=== PATIENT | female | born 1940 | race Caucasian/White ===

== ENCOUNTER 2023-07-03 13:19 | Inpatient (IN) | payer OTHER, SELFPAY ==
[2023-07-03] VITALS (15 sets, daily range): BP systolic 102–156; BP diastolic 61–86; BMI 17.6; BMI 16.6
[2023-07-03 08:43] LABS: % Basophils 0.8 % (0-2); % Eosinophils 2.8 % (0-6); % Immature Granulocytes 1.6 % (0-0.5); % Lymphocytes 36.7 % (20.5-51.1); % Monocytes 8.6 % (1.7-9.3); % Neutrophils 49.5 % (42.2-75.2); Absolute Basophils 0.1 10^3/uL (0-0.2); Absolute Eosinophils 0.2 10^3/uL (0-0.7); Absolute Immature Granulocytes 0.1 10^3/uL (0-0.05); Absolute Lymphocytes 2.4 10^3/uL (1.2-3.4); Absolute Monocytes 0.6 10^3/uL (0.1-0.6); Absolute Neutrophils 3.2 10^3/uL (1.4-6.5); Hematocrit 41.7 % (37.0-47.0); Hemoglobin 14.1 g/dL (12.0-16.0); Mean Corp Hgb Conc. 33.8 g/dL (33.0-37.0); Mean Corpuscular Hgb 31.1 pg (27.0-31.0); Mean Corpuscular Volume 92.1 fL (81.0-99.0); Mean Platelet Volume 9.5 fL (7.4-10.4); Nucleated Red Blood Cells % 0.3 %; Platelet Count 226 10^3/uL (130-400); Red Blood Cell Count 4.53 10^6/uL (4.20-5.40); Red Cell Dist. Width 15.2 % (11.5-14.5); White Blood Cell Count 6.4 10^3/uL (4.8-10.8)
--- NOTE | 2023-07-03 08:59 | ED.GENMED ---
History of Present Illness
General
Chief Complaint: Chest Pain
Source: patient, ambulance crew and [facility]
Exam Limitations: none
Time Seen by Provider: 07/03/23 08:32
Nursing documentation reviewed up to this point in time: agreed with
Travel History
Have you had any contact with someone who has COVID-19?: No
Do you have any symptoms of coronavirus? Fever > 100 degrees, chills, cough, shortness of breath, sore throat, loss of taste or smell, muscle aches, or headache?: No
History of Present Illness
History of Present Illness:
83-year-old female presenting from [facility] with concerns of chest pain described as a pressure radiating to the jaw for roughly an hour prior to arrival EMS was called she was given aspirin and nitro with significant improvement of symptoms
now asymptomatic when reassessed pulse ox in the high 80s here patient was placed on oxygen she does not typically use oxygen at baseline. Denies any diaphoresis nausea vomiting.
Review of Systems
Review of Systems
Allergies reviewed?: Yes
All Other Systems: ROS reviewed and negative except as documented in HPI and ROS
Phy Exam
Physical Exam
Physical Exam:
GENERAL: Alert , in no apparent distress
EYE: pupils equal and reactive
NECK: Supple, no significant adenopathy.
ENT: o/p clr, mmm.
CARDIAC: Regular rate and rhythm .
LUNGS: Clear breath sounds bilaterally, no acute respiratory distress, no wheezes/rales/rhonchi
ABDOMEN: Soft, without focal tenderness, no r/g, no cvat
NEUROLOGICAL: Alert and oriented, no focal neuro deficits
SKIN: Warm and dry, skin intact.
MUSCULOSKELETAL: No edema, well perfused.
PSYCH: Normal and appropriate interaction.
Scores
Heart Score for Chest Pain Patients
STEMI patient?: No
History: Slightly or Non-Suspicious
ECG: Normal
Age: >/= 65 years
Risk Factors: >/= 3 Risk Factors or History of CAD
Troponin: </= Normal Limit
Heart Score for Chest Pain Patients: 4
Heart Score Risk: 20.3% MACE over next 6 weeks
Course
Orders/Labs/Results
Orders:
Orders
07/03/23 08:28
Electrocardiogram (*1) Urgent
Reason for Study: Chest Pain
CXR2 [CR Chest - 2 Views ] Urgent
Comment:
Reason For Exam: chest pain
07/03/23 08:29
EKG- Treatment ONCE
07/03/23 08:31
Basic Metabolic Panel Urgent
Complete Blood Count/With Diff Urgent
Lipase Urgent
NT-proBNP Urgent
Comment: ADD ON
Troponin I Urgent
07/03/23 08:41
Add On- LAB Urgent
Tests Added?: Pro- BNP
07/03/23 09:51
CT Chest Pe Study Urgent
Comment:
Reason For Exam: CP hypoxia
Abnormal Lab Results
07/03/23
08:31
MCH 31.1 H pg
(27.0-31.0)
RDW 15.2 H %
(11.5-14.5)
Abs Immat Gran (auto) 0.1 H 10^3/uL
(0-0.05)
Immature Gran % 1.6 H %
(0-0.5)
BUN 33 H mg/dl
(7-17)
Creatinine 0.5 L mg/dL
(0.6-1.0)
07/03/23 08:31
07/03/23 08:31
Vital Signs
Initial and Last Documented VS:
Initial Vital Signs
Pulse Resp BP Pulse Ox
90 19 137/74 90
07/03/23 08:28 07/03/23 08:28 07/03/23 08:28 07/03/23 08:28
Last Documented Vital Signs
Temp Pulse Resp BP Pulse Ox
97.8 F 78 19 142/67 97
07/03/23 11:10 07/03/23 11:10 07/03/23 11:10 07/03/23 11:10 07/03/23 11:10
MDM/Problems Addressed
MDM/Problems Addressed:
83-year-old female presenting to the emergency department with a central chest pressure prior to arrival EMS gave aspirin and nitro with improvement of symptoms now asymptomatic during my assessment vital signs normal patient initially was reported
to have pulse ox of 88 was started on oxygen which she typically does not use at baseline. She was taken off of oxygen during my assessment with pulse ox remaining in the mid 90s. Lungs are clear heart sounds normal EKG nonischemic but occasional
PVCs. Patient's pulse ox each time taken off of supplemental oxygen Dropping into the mid 80s. The patient typically does not use oxygen at baseline. Is unclear what specifically is causing this we did a CT PE that did not show any PE troponin
negative BNP normal no leg swelling no adventitious sounds to the lungs that was granulomatous disease on the CT scan plan to admit for further assessment and monitoring.
*Critical Care Note
Total Time (30-74mins, 75-104mins- exclusive of procedures): Not Applicable
ED Attending Note
-
Portions of this chart may have been created with voice recognition software.� Occasional wrong word or��sound alike� substitutions may have occurred due to the inherent limitations of voice recognition software.
Discharge Plan
Departure
Patient Disposition: Admit
Date of Disposition: 07/03/23
Time of Disposition: 12:13
Admit to: Telemetry
Admit to doctor: Eh
Presentation/result/management discussed w/ accepting MD/DO: Hospitalist
Patient with high blood pressure during this ER visit?: No
Condition: Good
Covid-19: Not Applicable
Discharge Problem:
Hypoxemia
Prescriptions:
No Action
cetirizine 10 mg Tablet
10 mg PO DAILY
sucralfate 1 gram Tablet
1 g PO ACHS
amlodipine 5 mg Tablet
5 mg PO DAILY
Rx Instructions:
HOLD for SBP <110 DBP <60 HR <60
calcium carbonate-vitamin D3 [calcium-vitamin D3] 600 mg-5 mcg (200 unit) Tablet
1 tab PO DAILY
hydrocodone-acetaminophen 10-325 mg Tablet
1 tab PO Q6HPRN PRN (Reason: severe pain)
cyproheptadine 4 mg Tablet
4 mg PO AC
Rx Instructions:
BEFORE MEALS
levothyroxine 100 mcg Tablet
100 mcg PO DAILY
methocarbamol 750 mg Tablet
750 mg PO BID
pravastatin 10 mg Tablet
10 mg PO HS
magnesium hydroxide [Milk of Magnesia] 400 mg/5 mL Suspension
30 ml PO [id number] PRN (Reason: if no by )
prednisone 1 mg Tablet
12.5 mg PO UD
Rx Instructions:
06/27-07/08=12.5mg daily, 07/09-07/15=10mg daily, 07/16-07/22=9mg daily, 07/23-07/29=8mg daily, 07/30-08/05=7mg daily, 08/06-08/19=6mg daily, 08/20-09/02=5mg daily, 09/03-09/16=4mg daily, 09/17-09/30=3mg daily, 10/01-10/14=2mg daily,
10/15-10/28=1mg daily
bisacodyl 10 mg Suppository
10 mg [place] DAILYPRN PRN (Reason: if no bm aftr mom)
pantoprazole 40 mg Tablet,Delayed Release (Dr/Ec)
40 mg PO DAILY
albuterol sulfate 90 mcg/actuation Hfa Aerosol Inhaler
2 puff INHALATION R Q6HPRN PRN (Reason: sob)
sertraline 50 mg Tablet
50 mg PO HS
Actemra 162 mg/0.9 mL Syringe
162 mg SC WE
Rx Instructions:
EVERY SUNDAY
acetaminophen [Tylenol] 325 mg Tablet
650 mg PO Q6HPRN PRN (Reason: mild pain/fever)
divalproex [Depakote Sprinkles] 125 mg Capsule, Delayed Rel Sprinkle
125 mg PO TID
sennosides-docusate sodium [Senna-S] 8.6-50 mg Tablet
1 tab-cap PO DAILY@1200
Referrals:
Romeo Dacosta I., DO [Family Provider] -
Interventions
Interventions:
*Risk Screen - Suicide Last Done: 07/03/23 08:30
*General Assessment Last Done: 07/03/23 08:30
*Neglect/Abuse Screening Last Done: 07/03/23 08:30
ED- Fall Risk Assessment Last Done: 07/03/23 08:30
*ED COVID-19 Vaccine History Last Done: 07/03/23 08:30
ED- Cardiac Assessment Last Done: 07/03/23 08:30
Discharge Date and Time
Print Language: MALDIVIAN
[2023-07-03 09:12] LABS: Troponin I < 0.012 ng/ml
--- NOTE | 2023-07-03 09:22 | EDRN ---
this RN titrated 02 from 3L to off per the provider Jonny GOMEZ, the pts Sp02 90% on RA, this RN notified the provider
[2023-07-03 09:28] LABS: Blood Urea Nitrogen 33 mg/dl (7-17); Estimated Creatinine Clearance 50 ml/min; Glucose 97 mg/dl (70-99); eGFR > 60.00
[2023-07-03 09:29] LABS: Calcium 8.8 mg/dl (8.4-10.2); Carbon Dioxide 28 mmol/L (22-30); Chloride 104 mmol/L (98-107); Lipase 180 U/L (23-300); Sodium 137 mmol/L (135-145)
[2023-07-03 09:42] LABS: NT-proBNP 139 pg/ml
--- NOTE | 2023-07-03 09:54 | EDRN ---
this RN notified the provider Jonny GOMEZ that the pts p02 on RA dipped to 85%, this RN placed the pt back at 3L NC and Sp02 came up to 96%, will continue to monitor the pt closely
--- NOTE | 2023-07-03 12:17 | HPS.HSE ---
Family Physician
-
Family Physician: Romeo Dacosta
Chief Complaint
-
Bilateral jaw pain, epigastric chest pain rating to left side and back, hypoxia
History of Present Illness
83-year-old female from [facility] where she has only been for the past 6 days complaining of acute onset of bilateral jaw pain, midepigastric pain radiating around left side chest to back and hypoxia noted to be low 80s in the ER requiring 3 L
nasal cannula. Patient denies any current pain in her chest or jaw. She denies fever, chills, sore throat, cough, chest pain, palpitations, abdominal pain, nausea, vomiting, diarrhea. I spoke with the patient's son Francisco via phone [phone]
he states that his mother and father lived in [place] until 6 days ago. They were living independently then for 1 month at an assisted living. He moved in closer as they were both declining. He is currently at [facility] lives in assisted
living with her .
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
chronic ambulatory dysfunction using wheelchair x 1 month, possible prior history of fecal impaction with possible stercoral colitis May 2023 in [place]
Medical History
Past Medical History
Past Medical History: Reports Other
Additional Past Medical History:
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
osteoporosis, osteopenia, known multiple compression fractures thoracic and lumbar
HTN
HLD
hypothyroidism
asthma�mild
GERD
Anxiety
chronic ambulatory dysfunction using wheelchair x 1 month
possible prior history of fecal impaction with possible stercoral colitis May 2023 in [place]
Past Surgical History: Reports Other
Additional Past Surgical History:
Tonsillectomy
1971 left tympanic membrane repair
Bilateral oophorectomy
Left foot unknown operation
Social History
Tobacco: Non-smoker
Alcohol: None
Drug: None
Personal:
Living: With Family (With at assisted living [place] [facility])
Employment: Retired
Family History
Family History: Unable to Obtain
Allergies / Home Medications
Allergies reflects when Allergies were last updated in [facility].
Home Medications with original date entered in [facility]
Allergy/Medication List:
Allergies
Allergy/AdvReac Type Severity Reaction Status Date / Time
Penicillins Allergy Mild Rash Verified 07/03/23 08:30
nickel Allergy Rash Verified 07/03/23 08:30
Home Medications
acetaminophen 325 mg tablet (Tylenol) 650 mg PO Q6HPRN PRN mild pain/fever 07/03/23
albuterol sulfate 90 mcg/actuation aerosol inhaler 2 puff inhalation R Q6HPRN PRN shortness of breath 07/03/23
amlodipine 5 mg tablet 5 mg PO DAILY Blood Pressure 07/03/23
bisacodyl 10 mg rectal suppository 10 mg [place] DAILYPRN PRN if no bm aftr mom 07/03/23
calcium carbonate 600 mg-vitamin D3 5 mcg (200 unit) tablet 1 tab PO DAILY Supplement 07/03/23
cetirizine 10 mg tablet 10 mg PO DAILY Allergies 07/03/23
cyproheptadine 4 mg tablet 4 mg PO AC appetite or allergies 07/03/23
divalproex 125 mg capsule,delayed release sprinkle (Depakote Sprinkles) 125 mg PO TID Neurological Condition 07/03/23
hydrocodone 10 mg-acetaminophen 325 mg tablet 1 tab PO Q6HPRN PRN severe pain 07/03/23
levothyroxine 100 mcg tablet 100 mcg PO DAILY Thyroid 07/03/23
magnesium hydroxide 400 mg/5 mL oral suspension (Milk of Magnesia) 30 ml PO [id number] PRN if no by 3rd day 07/03/23
methocarbamol 750 mg tablet 750 mg PO BID Muscle Spasms 07/03/23
pantoprazole 40 mg tablet,delayed release 40 mg PO DAILY Gastrointestinal Issue 07/03/23
pravastatin 10 mg tablet 10 mg PO HS High Cholesterol 07/03/23
prednisone 1 mg tablet 12.5 mg PO UD anti-inflammation 07/03/23
sennosides 8.6 mg-docusate sodium 50 mg tablet (Senna-S) 1 tab-cap PO DAILY@1200 Constipation 07/03/23
sertraline 50 mg tablet 50 mg PO HS Mental Health 07/03/23
sucralfate 1 gram tablet 1 g PO ACHS Gastrointestinal Issue 07/03/23
tocilizumab 162 mg/0.9 mL subcutaneous syringe (Actemra) 162 mg SC WE Autoimmune Disorder 07/03/23
Review of Systems
-
History Source: Patient and Family (Grandson at bedside, son Francisco information via phone)
Constitutional: Denies Fever, Fatigue or Chills
EENT: Reports Other; Denies Sore Throat or Runny Nose
Respiratory: Reports Trouble Breathing; Denies Cough or Hemoptysis
Cardiac: Reports Chest Pain (Midsternal around left side to back); Denies Diaphoresis, Palpitations or Syncope
Abdomen/GI: Denies Abdominal Pain, Nausea, Vomiting, Diarrhea, Constipated, Bloody Stools or Black Stools
: Denies Dysuria, Frequency, Flank Pain, Incontinence, Difficulty Voiding, Urgency or Bleeding
Musculoskeletal: Denies Joint Pain or Edema
Skin: Denies Itching or Rash
Neurological: Denies Dizzy, Headache or Weakness
Hematologic/Lymphatic: Reports No Symptoms
Psych: Reports Calm (To anxious)
Physical Exam
Vital Signs
Vital Signs
Temp Pulse Resp BP Pulse Ox
97.8 F 78 19 142/67 97
07/03/23 11:10 07/03/23 11:10 07/03/23 11:10 07/03/23 11:10 07/03/23 11:10
Physical Exam
General: Comfortable and Conversant; No Pain, Fever or Chills
HEENT: NormoCephalic, Anicteric, [place] Conjunctivae, No Ptosis and Oxygen (3 L nasal cannula)
Respiratory: Rales (Course bilateral lower lungs); No Wheezes or Rhonchi
Cardiac: S1/S2 and Regular Rhythm; No Murmur, Rub, Gallop or Peripheral Edema
GI: Soft, Non Tender, Non Distended, Normal Bowel Sounds and No Hepatosplenomegaly
Rectal: Deferred by Provider
Genito-urinary: Deferred by me
Musculoskeletal: No Clubbing, No Cyanosis and No Edema
Neuro: AO x 3 (But does not recall some of medical history although is anxious) and Other (Chronic hard of hearing, blind right eye); No Cranial Nerves Intact, Slurred Speech, Facial Droop or Tremors
Psych: Anxious (When questions being asked)
Laboratory Results
-
07/03/23 08:31
07/03/23 08:31
Laboratory Results
Total Bilirubin Cancelled 07/03/23 08:31
AST Cancelled 07/03/23 08:31
ALT Cancelled 07/03/23 08:31
Alkaline Phosphatase Cancelled 07/03/23 08:31
Troponin I < 0.012 ng/ml 07/03/23 08:31
Lipase 180 U/L (23-300) 07/03/23 08:31
Data Reviewed
-
Diagnostic Radiology: Report Reviewed by me
CT Scan: Report Reviewed by me
Lab Data: Labs Reviewed by me
Impression/Plan
-
Impression/plan:
Admit to telemetry
#Acute hypoxic resp insuff 2/2 granulomatous disease chronic prednisone/immunotherapy
#Chest pain/jaw pain likely secondary to respiratory insufficiency
90% room air, 97% 3 L NC
-check flu and covid
-Consult pulmonary
-Check ESR, CRP
-ADD gabapentin 100 mg p.o. twice daily for chest pain likely secondary to history of compression fractures
CT PE study: No PE
Stable granulomayous disease
Compression fractures T3, T4, T7, T9, T10, T11, T12, L1, L2, L3
Sclerotic appearance to the T7 and L1 vertebral bodies more likely on basis of compression fractures and metastasis
EKG: Sinus rhythm with occasional PVCs 84 bpm, QTc 463 MS slight T wave inversions anterior inferior leads no previous EKGs
#?mild cognitive impairment
-Patient is oriented to name, place, son, grandson but not most of history
-Continue Depakote 125 mg p.o. 3 times daily
-check Depakote level
#Hypothyroidism
-Check TSH with free T4 reflex
-Continue levothyroxine 100 mcg p.o. daily
#Giant cell arteritis with right eye blindness
-cont chronic prednisone 12.5 mg daily
-cont immunotherapy Actemra 162 mcg subcwednesdays
#Osteoporosis,/osteopenia, known multiple compression fractures thoracic and lumbar
-Continue Tylenol, hydrocodone 1 tab p.o. every 6 as needed severe pain
-Continue methocarbamol 750 mg p.o. twice daily muscle spasms
-ADD gabapentin 100 mg p.o. twice daily
#Chronic ambulatory dysfunction using wheelchair x 1 month
-Consult PT/OT/case management
HTN-benign
156/78
-Continue amlodipine 5 mg daily
# HLD
-Check lipid profile
-Continue pravastatin 10 mg at bedtime
#GERD
Continue sucralfate 1 g ACHS, Protonix 40 mg daily
#Asthma�mild -no acute exacerbation
-Continue albuterol as needed
#Anxiety
-Continue Zoloft 50 mg at bedtime
#Possible prior history of fecal impaction with possible stercoral colitis May 2023 in [place]
#Seasonal allergies
-Continue cetirizine 10 mg daily
#Cachexia with protein malnutrition�BMI 17.6 kg
-Continue cyproheptadine
DVT prophylaxis
Subcu Lovenox
DNR per son Francisco PERRY via phone [phone]
[2023-07-03 13:29] LABS: COVID-19 Antigen Negative (Negative)
[2023-07-03 13:59] LABS: Troponin I < 0.012 ng/ml
[2023-07-03 14:04] LABS: Erythrocyte Sed Rate 1 mm/hour (0-20)
--- NOTE | 2023-07-03 14:27 | EDRN ---
this RN called the receiving unit and notified them that paper report was going to be tubed up
[2023-07-03 15:33] LABS: C-Reactive Protein < 5.00 mg/L (0.0-10.00)
--- NOTE | 2023-07-03 17:00 | W.PN.UPDATE ---
Update Note
Progress Note Update
I saw and examined the patient.
The DIRECT SELLING COUNSELOR's note was reviewed and I agree with the note.
Patient is 83-year-old female with past medical history of giant cell arteritis, history of hypertension, hyperlipidemia hypothyroidism, asthma, gout, anxiety, chronic amatory dysfunction was brought into ER for patient having new onset of shortness
of breath and bilateral lower rib cage pain and some jaw pain. 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 Resultant to that patient have developed significant osteopenia and
extensive vertebral compression fracture. Patient noted to having new onset of bilateral lower rib cage pain radiating in band like pain. Patient was having some sternal pressure and radiating to jaw as well.No associated
nausea/diaphoresis/palpitation. Patient denies of having any previous history of cardiac issues. Patient has been in [facility] for over 1 week, have moved from [place] close to family due to deteriorating health condition.
HEENT: No pallor, cyanosis, or jaundice. Throat clear.
NECK: Supple. No JVD.
RESPIRATORY: Lungs clear to auscultation.
CVS: S1, S2 normal. RRR. No murmur, rub or gallop.
ABDOMEN: Soft, non-tender. No distension. BS+/normal.
EXTREMITIES: No peripheral cyanosis or edema.
ASSOCIATE PUBLISHER: AOx3. No focal deficits.
Chest pain
-No previous history of coronary disease
-Check serial troponin
-EKG did not show any new ST segment changes
Acute hypoxic respite insufficiency
-CT chest PE negative for pulmonary embolism
-No major pulmonary parenchymal changes except some stable granulomatous changes
-COVID and flu is negative
-Hypoxia not clearly explained at this point.
-In ER saturating 97% on 4 L oxygen, room to wean off
Lower rib cage pain
Thoracic vertebral compression fracture
Chronic steroid use related osteopenia
Intervertebral disc vacuum phenomenon
-Patient extensive thoracic vertebral spinal fracture. CT chest images reviewed and patient likely have intervertebral disc back in foramina. No clinical other signs suspecting of osteomyelitis.
-Patient having lower rib cage bandlike pain likely radicular in nature.
-Patient already on muscle relaxant. Adding gabapentin to help with radicular pain.
History of giant cell arteritis
-Patient was complaints of jaw pain
-Already on prednisone 12.5 mg daily, continue
-CRP normal. No other clinical signs of concerning of flareup
DNR -confirmed with son
[2023-07-03] MEDS: PERIACTIN 4 MG PO (17:39)
[2023-07-03] MEDS: CARAFATE 1 GRAM PO ×2 (17:39→21:12)
[2023-07-03] MEDS: LOVENOX 40 MG SC (17:39)
[2023-07-03] MEDS: DEPAKOTE SPRINKLE 125 MG PO ×2 (17:39→21:12)
[2023-07-03] MEDS: NEURONTIN 100 MG PO (20:25)
[2023-07-03 20:49] LABS: Troponin I < 0.012 ng/ml
[2023-07-03] MEDS: ZOLOFT 50 MG PO (21:14)
[2023-07-03] MEDS: PRAVACHOL 10 MG PO (21:16)
[2023-07-04] VITALS (8 sets, daily range): BP systolic 102–143; BP diastolic 68–78; PULSE 84–95; O2SAT 93–95; BMI 16.7
[2023-07-04] MEDS: SYNTHROID 100 MCG PO (05:20)
[2023-07-04 06:24] LABS: % Basophils 1.6 % (0-2); % Eosinophils 5.3 % (0-6); % Immature Granulocytes 1.1 % (0-0.5); % Lymphocytes 29.6 % (20.5-51.1); % Monocytes 8.2 % (1.7-9.3); % Neutrophils 54.2 % (42.2-75.2); Absolute Basophils 0.1 10^3/uL (0-0.2); Absolute Eosinophils 0.2 10^3/uL (0-0.7); Absolute Lymphocytes 1.1 10^3/uL (1.2-3.4); Absolute Monocytes 0.3 10^3/uL (0.1-0.6); Absolute Neutrophils 2.1 10^3/uL (1.4-6.5); Hematocrit 43.4 % (37.0-47.0); Hemoglobin 14.4 g/dL (12.0-16.0); Mean Corp Hgb Conc. 33.2 g/dL (33.0-37.0); Mean Corpuscular Hgb 30.8 pg (27.0-31.0); Mean Corpuscular Volume 92.9 fL (81.0-99.0); Mean Platelet Volume 9.1 fL (7.4-10.4); Nucleated Red Blood Cells % 0 %; Platelet Count 207 10^3/uL (130-400); Red Blood Cell Count 4.67 10^6/uL (4.20-5.40); Red Cell Dist. Width 15.4 % (11.5-14.5); White Blood Cell Count 3.8 10^3/uL (4.8-10.8)
[2023-07-04 06:47] LABS: Blood Urea Nitrogen 19 mg/dl (7-17); Calcium 9.1 mg/dl (8.4-10.2); Carbon Dioxide 33 mmol/L (22-30); Chloride 101 mmol/L (98-107); Estimated Creatinine Clearance 48 ml/min; Glucose 84 mg/dl (70-99); HDL Cholesterol 66 mg/dl; LDL Cholesterol, Calculated 110 mg/dl; Potassium 3.9 mmol/L (3.5-5.1); Sodium 139 mmol/L (135-145); Total Cholesterol 219 mg/dl (50-199); Triglyceride 217 mg/dl (10-149); Very Low Density Lipoprotein 43 mg/dl (0-30); eGFR > 60.00
[2023-07-04 07:46] LABS: Free T4 1.24 ng/dl (0.78-2.19)
[2023-07-04] MEDS: CARAFATE 1 GRAM PO ×4 (08:58→20:55)
[2023-07-04] MEDS: PERIACTIN 4 MG PO ×3 (08:58→16:58)
[2023-07-04] MEDS: OSCAL 500 + D 500 MG PO (08:58)
[2023-07-04] MEDS: NORVASC 5 MG PO (08:58)
[2023-07-04] MEDS: PROTONIX 40 MG PO (08:58)
[2023-07-04] MEDS: NEURONTIN 100 MG PO ×2 (08:58→20:40)
[2023-07-04] MEDS: DEPAKOTE SPRINKLE 125 MG PO ×3 (08:59→20:55)
[2023-07-04] MEDS: DELTASONE 12.5 MG PO (08:59)
[2023-07-04] MEDS: ZYRTEC 10 MG PO (08:59)
--- NOTE | 2023-07-04 10:03 | CON.PUL ---
Consultation
Consultation Request
Date/Time Consultation Requested: 07/04/2023-9 AM
Date/Time Consultation Performed: 07/04/2023-9:30 AM
Requesting Provider: Hospitalist
Performing Provider: Dr. Cherry
Reason for Consultation: Abnormal CT chest
Medical History
-
Chief Complaint: Chest pain and shortness of breath
History of Present Illness:
83-year-old female with a history of giant cell arteritis, immunocompromised, osteoporosis, compression fractures, who obtained a CT chest and granulomatous disease was noted-pulmonary was consulted for abnormal CT chest/granulomatous disease
07/04/2023. She denies any shortness of breath at rest, pleurisy, hemoptysis, previous lung disease including emphysema, asthma and is a lifelong non-smoker. She admits to abdominal pain, anorexia, and some mild leg swelling.
Past Medical History
Past Medical History: None (Hypertension. Hyperlipidemia. Hypothyroid. Asthma. Ambulatory dysfunction. Fecal impaction. Giant cell arteritis/right eye blindness. Chronic steroid/IL-6 inhibition-Actemra. Osteoporosis. Compression fractures.)
Past Surgical History: None (Tonsillectomy. Tympanic membrane repair 1970. Bilateral oophorectomy. Left foot operation.)
Social History
Tobacco: Non-smoker
Alcohol: None
Drug: None
Personal:
Living: With Family
Occupational Exposures: No known asbestos exposure
Environmental Exposures: No known tuberculosis exposure
Family History
Family History: Other (No known lung disease)
Allergies / Home Medications
Allergies
Allergy/AdvReac Type Severity Reaction Status Date / Time
nickel Allergy Rash Verified 07/03/23 08:30
Penicillins Allergy Rash Verified 07/03/23 15:42
Home Medications
�Medication �Instructions �Recorded �Confirmed �Last Taken �Type
acetaminophen 325 mg tablet 650 mg PO Q6HPRN PRN mild 07/03/23 07/03/23 Unknown History
(Tylenol) pain/fever
albuterol sulfate 90 mcg/actuation 2 puff inhalation R Q6HPRN PRN 07/03/23 07/03/23 Unknown History
aerosol inhaler shortness of breath
amlodipine 5 mg tablet 5 mg PO DAILY Blood Pressure 07/03/23 07/03/23 Unknown History
bisacodyl 10 mg rectal suppository 10 mg NC DAILYPRN PRN if no bm 07/03/23 07/03/23 Unknown History
aftr mom
calcium carbonate 600 mg-vitamin 1 tab PO DAILY Supplement 07/03/23 07/03/23 Unknown History
D3 5 mcg (200 unit) tablet
cetirizine 10 mg tablet 10 mg PO DAILY Allergies 07/03/23 07/03/23 Unknown History
cyproheptadine 4 mg tablet 4 mg PO AC appetite or allergies 07/03/23 07/03/23 Unknown History
divalproex 125 mg capsule,delayed 125 mg PO TID Neurological 07/03/23 07/03/23 Unknown History
release sprinkle (Depakote Condition
Sprinkles)
hydrocodone 10 mg-acetaminophen 1 tab PO Q6HPRN PRN severe pain 07/03/23 07/03/23 Unknown History
325 mg tablet
levothyroxine 100 mcg tablet 100 mcg PO DAILY Thyroid 07/03/23 07/03/23 Unknown History
magnesium hydroxide 400 mg/5 mL 30 ml PO [id number] PRN if no by 3rd 07/03/23 07/03/23 Unknown History
oral suspension (Milk of Magnesia)
methocarbamol 750 mg tablet 750 mg PO BID Muscle Spasms 07/03/23 07/03/23 Unknown History
pantoprazole 40 mg tablet,delayed 40 mg PO DAILY Gastrointestinal 07/03/23 07/03/23 Unknown History
release Issue
pravastatin 10 mg tablet 10 mg PO HS High Cholesterol 07/03/23 07/03/23 Unknown History
prednisone 1 mg tablet 12.5 mg PO UD anti-inflammation 07/03/23 07/03/23 Unknown History
sennosides 8.6 mg-docusate sodium 1 tab-cap PO DAILY@1200 07/03/23 07/03/23 Unknown History
50 mg tablet (Senna-S) Constipation
sertraline 50 mg tablet 50 mg PO HS Mental Health 07/03/23 07/03/23 Unknown History
sucralfate 1 gram tablet 1 g PO ACHS Gastrointestinal Issue 07/03/23 07/03/23 Unknown History
tocilizumab 162 mg/0.9 mL 162 mg SC WE Autoimmune Disorder 07/03/23 07/03/23 Unknown History
subcutaneous syringe (Actemra)
Review of Systems
-
Unable to Obtain full review of systems at this time due to: Other (Per HPI)
Vitals / Labs / Diagnostic Testing
Vital Signs
Temp Pulse Resp BP Pulse Ox
97.7 F 88 20 138/78 96
07/04/23 08:14 07/04/23 08:58 07/04/23 08:14 07/04/23 08:58 07/04/23 08:14
Lab Data
07/04/23 05:46
07/04/23 05:46
Microbiology
07/03/23 13:05 Nasal Swab Influenza Types A & B (ALEX) - Final
Negative for Influenza A & B, NAAT
Negative results must be combined with clinical observations
and patient history.
Nucleic Acid Amplification test (NAAT)performed on the
[employer] platform.
Diagnostic Testing:
Physical Exam
-
Exam:
Well-nourished and well-developed in no apparent distress
HEENT-atraumatic, normocephalic
Neck-supple, no JVD, no bruit
Heart-regular rate and rhythm-no murmurs, rubs or gallops
Chest with diminished breath sounds but clear without wheezes or crackles
Abdomen soft distended and tender
Extremities-no cyanosis, clubbing, trace lower extremity edema
Integument-intact, no rashes, lesions or ecchymosis
Neurology-alert and oriented, nonfocal motor and sensory exam
Assessment
-
83-year-old female with a history of giant cell arteritis, immunocompromised, osteoporosis, compression fractures, who obtained a CT chest and granulomatous disease was noted-pulmonary was consulted for abnormal CT chest/granulomatous disease
07/04/2023.
Assessment
Abnormal CT chest-granulomatous disease
Shortness of breath and hypoxemia of unclear etiology-history of mild asthma-no wheezing on exam
Lower rib cage pain
Vertebral compression fractures
Mild leukopenia-WBC 3.8
Conditions present prior to admission:
Hypertension.
Hyperlipidemia.
Hypothyroid.
Asthma.
Ambulatory dysfunction.
Fecal impaction.
Giant cell arteritis/right eye blindness.
Chronic steroid/IL-6 inhibition-Actemra.
Osteoporosis.
Compression fractures.
Gout
Anxiety
Tonsillectomy. Tympanic membrane repair 1970. Bilateral oophorectomy. Left foot operation.
DNR
Plan
Etiology of shortness of breath and hypoxemia not clearly explained-CT negative for PE, chest clear, history of mild asthma, perhaps mild atelectasis
Granulomatous disease likely chronic-explained potential etiologies and benign nature to patient and
Attempt to wean supplemental oxygen
Incentive spirometry
Nebulizers if needed
Chronic prednisone 12.5 mg daily for giant cell arteritis
Analgesia per primary service
DVT prophylaxis-on Lovenox
GI prophylaxis-on pantoprazole
Nutrition with aspiration precautions
Early mobilization/physical therapy/Occupational Therapy
Reviewed with at the bedside
Diagnostic data:
Chest x-ray 07/03/2023-linear interstitial airway disease lower right lung reflecting scarring
CT chest 07/03/2023-no pulmonary embolism, stable granulomatous disease, no active cardiopulmonary disease, compression fractures, right lower lobe calcified granuloma and calcified granulomas in the spleen
Data Reviewed
-
EKG: Report reviewed by me
Radiology: Report reviewed by me
CT Scan: Image personally visualized and interpreted and Report reviewed by me
Medical Tests (Nuc Med, Echo etc): Report reviewed by me
Labs: Labs reviewed by me
Old Records: Reviewed
Total Time Spent with Patient (in minutes): 65
--- NOTE | 2023-07-04 13:20 | W.PN.HOSP.TC ---
Today's Communication/Plan
-
wean off o2 as possible
eventual rehab discharge
Assessment / Plan
Assessment / Plan
Acute hypoxic respite insufficiency
-CT chest PE negative for pulmonary embolism.
-No major pulmonary parenchymal changes except some stable granulomatous changes
-COVID and flu is negative
-Hypoxia not clearly explained at this point.
-continue wean off o2 as possible
-will benefit with eventual PFT in pulm office
Lower rib cage pain
Thoracic vertebral compression fracture
Chronic steroid use related osteopenia
Intervertebral disc vacuum phenomenon
-Patient extensive thoracic vertebral spinal fracture. CT chest images reviewed and patient likely have intervertebral disc vacuum phenomena. No clinical other signs suspecting of osteomyelitis.
-Patient having lower rib cage bandlike pain likely radicular in nature.
-Patient already on muscle relaxant. Adding gabapentin to help with radicular pain.
Chest pain
-likely MSK in nature
-No previous history of coronary disease
-Check serial troponin
-EKG did not show any new ST segment changes
History of giant cell arteritis
-Patient was complaints of jaw pain.
-Already on prednisone 12.5 mg daily, continue.
-Patient gets weekly Actemra, son will bring in the supply and can be given a dose today.
-CRP normal. No other clinical signs of concerning of flareup
-Sent in process of establishing care with local rheumatology. Primary rheumatology in [place].
Hypothyroidism
History of prolonged encephalopathy
Chronic ambulatory dysfunction
Essential hypertension
GERD
History of asthma
History of severe constipation/fecal impaction
History of stercoral colitis
Mod Protein calorie malnutrition
DNR -confirmed with son
07/03 care plan discussed with son.
Anticipated Discharge: Within 24 hours
Subjective/Interval History
-
Date of Service: July 04, 2023
Continues to complain of pain in back
No dyspnea
Patient was able to be weaned off of oxygen although hypoxic again in the night and required to be put back on nasal cannula
Objective Data
-
Labs:
Laboratory Results
07/04/23
05:46
WBC 3.8 L
Hgb 14.4
Hct 43.4
Plt Count 207
Sodium 139
Potassium 3.9
Chloride 101
Carbon Dioxide 33 H
BUN 19 H
Creatinine 0.5 L
Glucose 84
Calcium 9.1
Vital Signs:
Vital Signs
Temp Pulse Resp BP Pulse Ox
97.8 F 95 18 129/78 95
07/04/23 12:00 07/04/23 12:00 07/04/23 12:00 07/04/23 12:00 07/04/23 12:00
Review of Systems
-
Respiratory: Reports No Symptoms
Cardiac: Reports No Symptoms
Abdomen/GI: Reports No Symptoms and Pain
Physical Exam
-
General: No Apparent Distress and Comfortable
HEENT: Negative Oxygen
Respiratory: Clear to Auscultation
Cardiac: Regular Rhythm and S1/S2; Negative Murmur or Rub
GI: Soft, Nontender and Nondistended
Musculoskeletal: No Edema
Neuro: Awake, Alert, Oriented, No Motor Deficits and Nonfocal/Grossly Intact
Psych: Calm
[2023-07-04] MEDS: ZITHROMAX 250 MG PO (13:31)
--- NOTE | 2023-07-04 16:17 | CM ---
Case tima reviewed patient's chart and met with patient and patient was admitted from [facility], medical case worker met with patient and patient reports that she resides at [facility], and her spouse was also placed
at [facility]. They were living in [place], son lives in this area. per patient she plans on return to [facility] when stable. Patient requires assist with adl's and uses a w/c with ambulation.
[facility]
Report [phone]

Plan; Patient to return to [facility] when stable.
[2023-07-04] MEDS: LOVENOX 40 MG SC (16:59)
[2023-07-04] MEDS: NON-FORMULARY ITEM 162 MG SC (20:40)
[2023-07-04] MEDS: ZOLOFT 50 MG PO (20:55)
[2023-07-04] MEDS: PRAVACHOL 10 MG PO (20:56)
[2023-07-05] VITALS (8 sets, daily range): BP systolic 121–146; BP diastolic 44–102; BMI 16.7
[2023-07-05] MEDS: SYNTHROID 100 MCG PO (05:25)
[2023-07-05] MEDS: NEURONTIN 100 MG PO (07:56)
[2023-07-05] MEDS: ZITHROMAX 250 MG PO (07:56)
[2023-07-05] MEDS: OSCAL 500 + D 500 MG PO (07:56)
[2023-07-05] MEDS: PERIACTIN 4 MG PO ×3 (07:56→16:44)
[2023-07-05] MEDS: PROTONIX 40 MG PO (07:56)
[2023-07-05] MEDS: CARAFATE 1 GRAM PO ×4 (07:57→21:05)
[2023-07-05] MEDS: DELTASONE 12.5 MG PO (07:57)
[2023-07-05] MEDS: DEPAKOTE SPRINKLE 125 MG PO ×3 (07:57→21:05)
[2023-07-05] MEDS: NORVASC PO (08:00)
[2023-07-05] MEDS: ZYRTEC 10 MG PO (08:02)
[2023-07-05 09:12] LABS: % Basophils 0.9 % (0-2); % Eosinophils 2.5 % (0-6); % Immature Granulocytes 0.9 % (0-0.5); % Lymphocytes 32.2 % (20.5-51.1); % Monocytes 10.9 % (1.7-9.3); % Neutrophils 52.6 % (42.2-75.2); Absolute Eosinophils 0.1 10^3/uL (0-0.7); Absolute Lymphocytes 1.4 10^3/uL (1.2-3.4); Absolute Monocytes 0.5 10^3/uL (0.1-0.6); Absolute Neutrophils 2.3 10^3/uL (1.4-6.5); Hematocrit 40.3 % (37.0-47.0); Hemoglobin 13.3 g/dL (12.0-16.0); Mean Corpuscular Hgb 31.1 pg (27.0-31.0); Mean Corpuscular Volume 94.2 fL (81.0-99.0); Mean Platelet Volume 9.5 fL (7.4-10.4); Nucleated Red Blood Cells % 0 %; Platelet Count 208 10^3/uL (130-400); Red Blood Cell Count 4.28 10^6/uL (4.20-5.40); White Blood Cell Count 4.3 10^3/uL (4.8-10.8)
--- NOTE | 2023-07-05 10:05 | W.PN.PUL.V3 ---
Today's Communication / Plan
-
Wean oxygen.
Increase activity.
Incentive spirometry
Assessment
-
83-year-old female with a history of giant cell arteritis, immunocompromised, osteoporosis, compression fractures, who obtained a CT chest and granulomatous disease was noted-pulmonary was consulted for abnormal CT chest/granulomatous disease
07/04/2023.
Assessment
Abnormal CT chest-granulomatous disease
Shortness of breath and hypoxemia of unclear etiology-history of mild asthma-no wheezing on exam
Lower rib cage pain
Vertebral compression fractures
Mild leukopenia-WBC 3.8
Conditions present prior to admission:
Hypertension.
Hyperlipidemia.
Hypothyroid.
Asthma.
Ambulatory dysfunction.
Fecal impaction.
Giant cell arteritis/right eye blindness.
Chronic steroid/IL-6 inhibition-Actemra.
Osteoporosis.
Compression fractures.
Gout
Anxiety
Tonsillectomy. Tympanic membrane repair 1970. Bilateral oophorectomy. Left foot operation.
DNR
Plan
Etiology of shortness of breath and hypoxemia not clearly explained-CT negative for PE, chest clear, history of mild asthma, perhaps mild atelectasis
Granulomatous disease likely chronic-explained potential etiologies and benign nature to patient and
Incentive spirometry
Nebulizers if needed
Chronic prednisone 12.5 mg daily for giant cell arteritis
Supplemental oxygen as needed-currently on room air-91% saturation
Analgesia per primary service.
Azithromycin 250 mg daily for 3 days
DVT prophylaxis-on Lovenox
GI prophylaxis-on pantoprazole
Nutrition with aspiration precautions
Early mobilization/physical therapy/Occupational Therapy
Reviewed with at the bedside
Diagnostic data:
Chest x-ray 07/03/2023-linear interstitial airway disease lower right lung reflecting scarring
CT chest 07/03/2023-no pulmonary embolism, stable granulomatous disease, no active cardiopulmonary disease, compression fractures, right lower lobe calcified granuloma and calcified granulomas in the spleen
Subjective Data
-
Date of Service:
Date of Service: July 05, 2023
Chief Complaint: Pulmonary Follow Up and Dyspnea Follow Up
Subjective:
No complaints of worsening shortness of breath, no complaints of chest pain
Review of Systems
General: Other (per HPI)
Objective Data
Data Reviewed
Vital Signs / I&O:
Vital Signs
Temp Pulse Resp BP Pulse Ox
97.9 F 81 20 131/44 94
07/05/23 07:47 07/05/23 08:00 07/05/23 07:47 07/05/23 08:00 07/05/23 07:47
Intake and Output
07/04/23 07/05/23 07/06/23
06:59 06:59 06:59
Intake Total 420 / 420
Balance 420 / 420
SaO2: 94
Nasal Cannula flow liters per minute: 1.5
Physical Exam
General: Respiratory Distress (n) and Comfortable
HEENT: Normocephalic, Anicteric and Moist Mucous Membranes
Cardiovascular: Regular Rhythm and Murmur
Respiratory: Wheeze (n), Crackles (Rare basilar), Rhonchi (n), Non-Labored Respirations, Accessory Resp Muscle Use (n) and Stridor (n)
GI: Soft, Non Distended and Non Tender
Neurology: Awake, Alert and No Motor Deficits
Skin: Warm, Good Color, Cyanosis (n) and Jaundice (n)
Labs/Micro/Reports
Lab Data
07/05/23 07:58
Microbiology
07/04/23 11:34 Throat/Pharynx Streptococcus Rapid Screen - Final
Rapid Strep Screen (Group A) Negative
07/03/23 13:05 Nasal Swab Influenza Types A & B (ALEX) - Final
Negative for Influenza A & B, NAAT
Negative results must be combined with clinical observations
and patient history.
Nucleic Acid Amplification test (NAAT)performed on the
[employer] platform.
[2023-07-05 11:01] LABS: Blood Urea Nitrogen 15 mg/dl (7-17); Calcium 9.1 mg/dl (8.4-10.2); Carbon Dioxide 30 mmol/L (22-30); Chloride 103 mmol/L (98-107); Estimated Creatinine Clearance 48 ml/min; Glucose 82 mg/dl (70-99); Potassium 3.4 mmol/L (3.5-5.1); Sodium 139 mmol/L (135-145); eGFR > 60.00
[2023-07-05] MEDS: MIRALAX 17 GRAMS PO (11:24)
[2023-07-05] MEDS: DULCOLAX 10 MG RECTAL (11:24)
--- NOTE | 2023-07-05 14:33 | W.PN.HOSP.TC ---
Today's Communication/Plan
-
laxatives ordered
possible d/c later today
Assessment / Plan
Assessment / Plan
Acute hypoxic respite insufficiency - resolved
-CT chest PE negative for pulmonary embolism.
-No major pulmonary parenchymal changes except some stable granulomatous changes
-COVID and flu is negative
-Hypoxia not clearly explained at this point.
-continue wean off o2 as possible
-will benefit with eventual PFT in pulm office
Lower rib cage pain
Thoracic vertebral compression fracture
Chronic steroid use related osteopenia
Intervertebral disc vacuum phenomenon
-Patient extensive thoracic vertebral spinal fracture. CT chest images reviewed and patient likely have intervertebral disc vacuum phenomena. No clinical other signs suspecting of osteomyelitis.
-Patient having lower rib cage bandlike pain likely radicular in nature.
-Patient already on muscle relaxant. Gabapentin added and dose increased today.
Chest pain
-likely MSK in nature
-No previous history of coronary disease
-Check serial troponin
-EKG did not show any new ST segment changes
History of giant cell arteritis
-Patient was complaints of jaw pain.
-Already on prednisone 12.5 mg daily, continue.
-Patient gets weekly Actemra, son will bring in the supply and can be given a dose today.
-CRP normal. No other clinical signs of concerning of flareup
-Sent in process of establishing care with local rheumatology. Primary rheumatology in [place].
Constipation
-no BM in 4 days
-Discussed with RN to use Dulcolax suppository and abdominal
Hypothyroidism
History of prolonged encephalopathy
Chronic ambulatory dysfunction
Essential hypertension
GERD
History of asthma
History of severe constipation/fecal impaction
History of stercoral colitis
Mod Protein calorie malnutrition
DNR -confirmed with son
07/03 care plan discussed with son.
Anticipated Discharge: Within 24 hours
Subjective/Interval History
-
Date of Service: July 05, 2023
Complaint some pain in the upper back
no BM in 4 days
Objective Data
-
Labs:
Laboratory Results
07/05/23
07:58
WBC 4.3 L
Hgb 13.3
Hct 40.3
Plt Count 208
Sodium 139
Potassium 3.4 L
Chloride 103
Carbon Dioxide 30
BUN 15
Creatinine 0.5 L
Glucose 82
Calcium 9.1
Vital Signs:
Vital Signs
Temp Pulse Resp BP Pulse Ox
99.2 F 85 20 121/61 95
07/05/23 10:59 07/05/23 10:59 07/05/23 10:59 07/05/23 10:59 07/05/23 10:59
I&O
07/04/23 07/05/23 07/06/23
06:59 06:59 06:59
Intake Total 420 / 420
Balance 420 / 420
Review of Systems
-
Respiratory: Reports No Symptoms
Cardiac: Reports No Symptoms
Abdomen/GI: Reports No Symptoms
Physical Exam
-
General: No Apparent Distress and Comfortable
HEENT: Negative Oxygen
Respiratory: Clear to Auscultation
Cardiac: Regular Rhythm and S1/S2; Negative Murmur or Rub
GI: Soft, Nontender and Nondistended
Musculoskeletal: No Edema
Neuro: Awake, Alert, Oriented, No Motor Deficits and Nonfocal/Grossly Intact
Psych: Calm
--- NOTE | 2023-07-05 14:47 | CM ---
Patient to return to [facility] when stable.
[facility]
Report [phone]
[2023-07-05] MEDS: LOVENOX 40 MG SC (16:44)
[2023-07-05] MEDS: PRAVACHOL 10 MG PO (21:04)
[2023-07-05] MEDS: ZOLOFT 50 MG PO (21:04)
[2023-07-05] MEDS: NEURONTIN 200 MG PO (21:05)
[2023-07-06] VITALS (7 sets, daily range): BP systolic 94–147; BP diastolic 63–84
[2023-07-06] MEDS: SYNTHROID 100 MCG PO (06:01)
[2023-07-06 07:29] LABS: % Basophils 1.2 % (0-2); % Eosinophils 2.9 % (0-6); % Immature Granulocytes 0.8 % (0-0.5); % Monocytes 11.2 % (1.7-9.3); % Neutrophils 48.9 % (42.2-75.2); Absolute Basophils 0.1 10^3/uL (0-0.2); Absolute Eosinophils 0.2 10^3/uL (0-0.7); Absolute Lymphocytes 1.8 10^3/uL (1.2-3.4); Absolute Monocytes 0.6 10^3/uL (0.1-0.6); Absolute Neutrophils 2.5 10^3/uL (1.4-6.5); Hemoglobin 14.7 g/dL (12.0-16.0); Mean Corp Hgb Conc. 32.7 g/dL (33.0-37.0); Mean Corpuscular Hgb 30.9 pg (27.0-31.0); Mean Corpuscular Volume 94.7 fL (81.0-99.0); Mean Platelet Volume 9.7 fL (7.4-10.4); Nucleated Red Blood Cells % 0 %; Platelet Count 208 10^3/uL (130-400); Red Blood Cell Count 4.75 10^6/uL (4.20-5.40); Red Cell Dist. Width 14.9 % (11.5-14.5); White Blood Cell Count 5.1 10^3/uL (4.8-10.8)
[2023-07-06] MEDS: NORVASC 5 MG PO (08:35)
[2023-07-06] MEDS: ZYRTEC 10 MG PO (08:35)
[2023-07-06] MEDS: PERIACTIN 4 MG PO ×3 (08:35→16:27)
[2023-07-06] MEDS: DEPAKOTE SPRINKLE 125 MG PO ×3 (08:35→21:26)
[2023-07-06] MEDS: ZITHROMAX 250 MG PO (08:35)
[2023-07-06] MEDS: CARAFATE 1 GRAM PO ×4 (08:35→21:26)
[2023-07-06] MEDS: NEURONTIN 200 MG PO ×2 (08:36→21:26)
[2023-07-06] MEDS: PROTONIX 40 MG PO (08:36)
[2023-07-06] MEDS: DELTASONE 12.5 MG PO (08:36)
[2023-07-06] MEDS: OSCAL 500 + D 500 MG PO (08:36)
[2023-07-06 09:00] LABS: Blood Urea Nitrogen 15 mg/dl (7-17); Calcium 9.2 mg/dl (8.4-10.2); Carbon Dioxide 30 mmol/L (22-30); Chloride 103 mmol/L (98-107); Estimated Creatinine Clearance 48 ml/min; Glucose 85 mg/dl (70-99); Sodium 141 mmol/L (135-145); eGFR > 60.00
--- NOTE | 2023-07-06 09:57 | W.PN.PUL.V3 ---
Today's Communication / Plan
-
oxygen weaned to room air.
Increase activity.
Pulmonary will sign off
Assessment
-
83-year-old female with a history of giant cell arteritis, immunocompromised, osteoporosis, compression fractures, who obtained a CT chest and granulomatous disease was noted-pulmonary was consulted for abnormal CT chest/granulomatous disease
07/04/2023.
Assessment
Abnormal CT chest-granulomatous disease
Shortness of breath and hypoxemia of unclear etiology-history of mild asthma-no wheezing on exam
Lower rib cage pain
Vertebral compression fractures
Mild leukopenia-WBC 3.8
Conditions present prior to admission:
Hypertension.
Hyperlipidemia.
Hypothyroid.
Asthma.
Ambulatory dysfunction.
Fecal impaction.
Giant cell arteritis/right eye blindness.
Chronic steroid/IL-6 inhibition-Actemra.
Osteoporosis.
Compression fractures.
Gout
Anxiety
Tonsillectomy. Tympanic membrane repair 1970. Bilateral oophorectomy. Left foot operation.
DNR
Plan
Respiratory status is stable.-. Room air saturation 94%
Granulomatous disease likely chronic-explained potential etiologies and benign nature to patient and
Incentive spirometry
Nebulizers if needed
Chronic prednisone 12.5 mg daily for giant cell arteritis
Supplemental oxygen as needed-currently on room air-91% saturation
Analgesia per primary service.
Azithromycin 250 mg daily for 3 days
DVT prophylaxis-on Lovenox
GI prophylaxis-on pantoprazole
Nutrition with aspiration precautions
Early mobilization/physical therapy/Occupational Therapy
Reportedly in the emergency room and patient went to visit.
Pulmonary will sign off- Please call with questions.
Reviewed with nursing
Diagnostic data:
Chest x-ray 07/03/2023-linear interstitial airway disease lower right lung reflecting scarring
CT chest 07/03/2023-no pulmonary embolism, stable granulomatous disease, no active cardiopulmonary disease, compression fractures, right lower lobe calcified granuloma and calcified granulomas in the spleen
Subjective Data
-
Date of Service:
Date of Service: July 06, 2023
Chief Complaint: Pulmonary Follow Up and Dyspnea Follow Up
Subjective:
No respiratory distress,
Review of Systems
General: Other ( per HPI)
Objective Data
Data Reviewed
Vital Signs / I&O:
Vital Signs
Temp Pulse Resp BP Pulse Ox
97.6 F 71 17 147/69 94
07/06/23 07:13 07/06/23 08:35 07/06/23 07:13 07/06/23 08:35 07/06/23 07:13
Intake and Output
07/05/23 07/06/23 07/07/23
06:59 06:59 06:59
Intake Total 420 / 420 420 / 420
Balance 420 / 420 420 / 420
SaO2: 94
Nasal Cannula flow liters per minute: 1.5
Physical Exam
General: Respiratory Distress (n) and Comfortable
HEENT: Normocephalic, Anicteric and Moist Mucous Membranes
Cardiovascular: Regular Rhythm and Murmur
Respiratory: Wheeze (n), Crackles (Rare basilar), Rhonchi (n), Non-Labored Respirations, Accessory Resp Muscle Use (n) and Stridor (n)
GI: Soft, Non Distended and Non Tender
Neurology: Awake, Alert and No Motor Deficits
Skin: Warm, Good Color, Cyanosis (n) and Jaundice (n)
Labs/Micro/Reports
Lab Data
07/06/23 06:45
07/06/23 06:45
Microbiology
07/04/23 11:34 Throat/Pharynx Streptococcus Screen (SHENA) - Preliminary
Culture in Progress
07/04/23 11:34 Throat/Pharynx Streptococcus Rapid Screen - Final
Rapid Strep Screen (Group A) Negative
07/03/23 13:05 Nasal Swab Influenza Types A & B (ALEX) - Final
Negative for Influenza A & B, NAAT
Negative results must be combined with clinical observations
and patient history.
Nucleic Acid Amplification test (NAAT)performed on the
[employer] platform.
[2023-07-06] MEDS: DILAUDID 0.5 MG IV (11:33)
--- NOTE | 2023-07-06 13:53 | W.PN.HOSP.TC ---
Today's Communication/Plan
-
awaiting rehab approval
increase pain medication
Assessment / Plan
Assessment / Plan
Acute hypoxic respite insufficiency - resolved
-CT chest PE negative for pulmonary embolism.
-No major pulmonary parenchymal changes except some stable granulomatous changes
-COVID and flu is negative
-Hypoxia not clearly explained at this point.
-continue wean off o2 as possible
-will benefit with eventual PFT in pulm office
Lower rib cage pain
Thoracic vertebral compression fracture
Chronic steroid use related osteopenia
Intervertebral disc vacuum phenomenon
-Patient extensive thoracic vertebral spinal fracture. CT chest images reviewed and patient likely have intervertebral disc vacuum phenomena. No clinical other signs suspecting of osteomyelitis.
-Patient having lower rib cage bandlike pain likely radicular in nature.
-Patient already on muscle relaxant. Gabapentin added and dose increased
-Change hydrocodone to oxycodone and dose increased for severe pain
Chest pain
-likely MSK in nature
-No previous history of coronary disease
-Check serial troponin
-EKG did not show any new ST segment changes
History of giant cell arteritis
-Patient was complaints of jaw pain.
-Already on prednisone 12.5 mg daily, continue.
-Patient gets weekly Actemra, son will bring in the supply and can be given a dose today.
-CRP normal. No other clinical signs of concerning of flare-up
-Sent in process of establishing care with local rheumatology. Primary rheumatology in [place].
Constipation
-no BM in 4 days
-Discussed with RN to use Dulcolax suppository and abdominal
Hypothyroidism
History of prolonged encephalopathy
Chronic ambulatory dysfunction
Essential hypertension
GERD
History of asthma
History of severe constipation/fecal impaction
History of stercoral colitis
Mod Protein calorie malnutrition
DNR -confirmed with son
07/03 care plan discussed with son.
Anticipated Discharge: Within 24 hours
Subjective/Interval History
-
Date of Service: July 06, 2023
Continues to complain pain
Had good bowel movement overnight
Objective Data
-
Labs:
Laboratory Results
07/06/23
06:45
WBC 5.1
Hgb 14.7
Hct 45.0
Plt Count 208
Sodium 141
Potassium 4.0
Chloride 103
Carbon Dioxide 30
BUN 15
Creatinine 0.5 L
Glucose 85
Calcium 9.2
Vital Signs:
Vital Signs
Temp Pulse Resp BP Pulse Ox
98.0 F 79 17 112/71 94
07/06/23 11:40 07/06/23 11:40 07/06/23 07:13 07/06/23 11:40 07/06/23 09:57
I&O
07/05/23 07/06/23 07/07/23
06:59 06:59 06:59
Intake Total 420 / 420 420 / 420
Balance 420 / 420 420 / 420
Review of Systems
-
Respiratory: Reports No Symptoms
Cardiac: Reports No Symptoms
Abdomen/GI: Reports No Symptoms
Physical Exam
-
General: No Apparent Distress and Comfortable
HEENT: Negative Oxygen
Respiratory: Clear to Auscultation
Cardiac: Regular Rhythm and S1/S2; Negative Murmur or Rub
GI: Soft, Nontender and Nondistended
Musculoskeletal: No Edema
Neuro: Awake, Alert, Oriented, No Motor Deficits and Nonfocal/Grossly Intact
Psych: Calm
--- NOTE | 2023-07-06 14:44 | CHAP ---
Emotional and spiritual support provided for Hiwot and her family in the ED at the bedside of her , Artis, who had just . She seemed quite overwhelmed and confused, family caring for her with love and gentleness. Will inform weekend
cotton wringer of her loss for further support.
--- NOTE | 2023-07-06 16:05 | CM ---
Addendum entered by Rosy Guerrero 07/06/23 16:17:
[facility]
Report [phone]

Original Note:
water quality manager reviewed patient's chart and spoke with patient's physician and patient will be cleared for discharge tomorrow, patient's spouse today in the ED, plan is for patient to return to [facility] tomorrow.
Plan; Skilled placement at [facility], call placed to [facility] and geriatric case manager spoke with Malcolm at [facility], pending Auth [id number], clinical faxed to .
[2023-07-06] MEDS: ROXICODONE 5 MG PO (17:03)
[2023-07-06] MEDS: LOVENOX 40 MG SC (17:04)
[2023-07-06] MEDS: PRAVACHOL 10 MG PO (21:26)
[2023-07-06] MEDS: ZOLOFT 50 MG PO (21:26)
--- NOTE | 2023-07-06 21:40 | PTCARENOTE ---
At 2049, RN found patient on floor. Patient had an unwitnessed fall, but denied hitting her head. Vital signs taken, see chart for vitals. Skin tear noted on left calf. Patient`s neuro assessment remains unchanged. Patient denies pain. Kalpana Velásquez
nurse practitioner notified. SUPERVISOR FARM EQUIPMENT MAINTENANCE assessed patient. Nursing clearing supervisor made aware. Call cason within reach. Bed alarm on.
--- NOTE | 2023-07-07 01:53 | W.PN.UPDATE ---
Update Note
Progress Note Update
unwitnessed fall. Per nursing, patient found sitting on the floor. Upon assessment, VSS, patient denies pain and injury, denies hitting head. Nursing found small skin tear to left knee. Otherwise, assessment benign, no signs of acute injuries noted
at this time.
[2023-07-07] MEDS: SYNTHROID 100 MCG PO (05:14)
[2023-07-07 07:29] LABS: % Basophils 1.2 % (0-2); % Lymphocytes 39.4 % (20.5-51.1); % Monocytes 10.5 % (1.7-9.3); % Neutrophils 44.9 % (42.2-75.2); Absolute Basophils 0.1 10^3/uL (0-0.2); Absolute Eosinophils 0.2 10^3/uL (0-0.7); Absolute Immature Granulocytes 0.1 10^3/uL (0-0.05); Absolute Monocytes 0.5 10^3/uL (0.1-0.6); Absolute Neutrophils 2.2 10^3/uL (1.4-6.5); Hematocrit 41.2 % (37.0-47.0); Hemoglobin 13.7 g/dL (12.0-16.0); Mean Corp Hgb Conc. 33.3 g/dL (33.0-37.0); Mean Corpuscular Hgb 30.9 pg (27.0-31.0); Mean Platelet Volume 9.4 fL (7.4-10.4); Nucleated Red Blood Cells % 0 %; Platelet Count 195 10^3/uL (130-400); Red Blood Cell Count 4.43 10^6/uL (4.20-5.40); Red Cell Dist. Width 14.8 % (11.5-14.5)
[2023-07-07 07:44] LABS: Blood Urea Nitrogen 16 mg/dl (7-17); Calcium 9.2 mg/dl (8.4-10.2); Carbon Dioxide 32 mmol/L (22-30); Chloride 100 mmol/L (98-107); Estimated Creatinine Clearance 48 ml/min; Glucose 85 mg/dl (70-99); Sodium 137 mmol/L (135-145); eGFR > 60.00
[2023-07-07 07:49] LABS: Potassium 4.4 mmol/L (3.5-5.1)
[2023-07-07] MEDS: ZYRTEC 10 MG PO (08:23)
[2023-07-07] MEDS: DELTASONE 12.5 MG PO (08:23)
[2023-07-07] MEDS: PROTONIX 40 MG PO (08:23)
[2023-07-07] MEDS: OSCAL 500 + D 500 MG PO (08:23)
[2023-07-07] MEDS: NEURONTIN 200 MG PO ×2 (08:23→19:47)
[2023-07-07] MEDS: DEPAKOTE SPRINKLE 125 MG PO ×3 (08:23→21:12)
[2023-07-07] MEDS: CARAFATE 1 GRAM PO ×4 (08:25→21:12)
[2023-07-07] MEDS: NORVASC 5 MG PO (08:25)
[2023-07-07] MEDS: PERIACTIN 4 MG PO ×3 (08:25→17:14)
[2023-07-07 08:56] VITALS: BP 145/80
--- NOTE | 2023-07-07 10:13 | W.PN.HOSP.TC ---
Today's Communication/Plan
-
awaiting rehab approval
continue current pain meds
continue prn stool softener
Assessment / Plan
Assessment / Plan
Acute hypoxic respite insufficiency - resolved
-CT chest PE negative for pulmonary embolism.
-No major pulmonary parenchymal changes except some stable granulomatous changes
-COVID and flu is negative
-Hypoxia not clearly explained at this point.
-will benefit with eventual PFT in pulm office
-off of o2 at this point.
Lower rib cage pain
Thoracic vertebral compression fracture
Chronic steroid use related osteopenia
Intervertebral disc vacuum phenomenon
-Patient extensive thoracic vertebral spinal fracture. CT chest images reviewed and patient likely have intervertebral disc vacuum phenomena. No clinical other signs suspecting of osteomyelitis.
-Patient having lower rib cage bandlike pain likely radicular in nature.
-Patient already on muscle relaxant. Gabapentin added and dose increased
-Change hydrocodone to oxycodone and dose increased for severe pain
Chest pain
-likely MSK in nature
-No previous history of coronary disease
-serial trop neg
-EKG did not show any new ST segment changes
History of giant cell arteritis
Right vision loss
Decreased left eye vision
-Patient was complaining of jaw pain. now gone.
-Already on prednisone 12.5 mg daily, continue.
-Patient gets weekly Actemra, son brought up supply, got dose on sun.
-CRP normal. No other clinical signs of concerning of flare-up
-in process of establishing care with local rheumatology. Primary rheumatology in [place]
Constipation - resolved
-no BM in 4 days, improved with laxative.
-Discussed with RN to use Dulcolax suppository and abdominal
Hypothyroidism
History of prolonged encephalopathy
Chronic ambulatory dysfunction
Essential hypertension
GERD
History of asthma
History of severe constipation/fecal impaction
History of stercoral colitis
Mod Protein calorie malnutrition
DNR -confirmed with son
07/03 care plan discussed with son.
Anticipated Discharge: 24 - 48 hours
Subjective/Interval History
-
Date of Service: July 07, 2023
resting comfortably in bed
some back pain
no other issues
Objective Data
-
Labs:
Laboratory Results
07/07/23
07:06
WBC 5.0
Hgb 13.7
Hct 41.2
Plt Count 195
Sodium 137
Potassium 4.4
Chloride 100
Carbon Dioxide 32 H
BUN 16
Creatinine 0.6
Glucose 85
Calcium 9.2
Vital Signs:
Vital Signs
Temp Pulse Resp BP Pulse Ox
98.7 F 83 18 145/80 94
07/07/23 08:56 07/07/23 08:56 07/07/23 08:56 07/07/23 08:56 07/07/23 08:56
I&O
07/06/23 07/07/23 07/08/23
06:59 06:59 06:59
Intake Total 420 / 420 360 / 360
Balance 420 / 420 360 / 360
Review of Systems
-
Respiratory: Reports No Symptoms
Cardiac: Reports No Symptoms
Abdomen/GI: Reports No Symptoms
Physical Exam
-
General: No Apparent Distress and Comfortable
HEENT: Negative Oxygen
Musculoskeletal: No Edema
Neuro: Awake, Alert, Oriented, No Motor Deficits and Nonfocal/Grossly Intact
Psych: Calm
[2023-07-07 15:00] VITALS: BP 101/92
[2023-07-07] MEDS: LOVENOX 40 MG SC (17:14)
[2023-07-07] MEDS: PRAVACHOL 10 MG PO (21:12)
[2023-07-07] MEDS: ZOLOFT 50 MG PO (21:12)
[2023-07-07 23:30] VITALS: BP 114/60
[2023-07-08 06:00] VITALS: BMI 16.5
[2023-07-08] MEDS: SYNTHROID 100 MCG PO (06:19)
[2023-07-08 07:12] VITALS: BMI 16.5
[2023-07-08 08:13] VITALS: BP 108/67
[2023-07-08] MEDS: NORVASC PO (08:14)
[2023-07-08] MEDS: CARAFATE 1 GRAM PO ×4 (08:15→21:05)
[2023-07-08] MEDS: DEPAKOTE SPRINKLE 125 MG PO ×3 (08:15→21:08)
[2023-07-08] MEDS: PROTONIX 40 MG PO (08:15)
[2023-07-08] MEDS: NEURONTIN 200 MG PO ×2 (08:15→20:43)
[2023-07-08] MEDS: OSCAL 500 + D 500 MG PO (08:15)
[2023-07-08] MEDS: ZYRTEC 10 MG PO (08:15)
[2023-07-08] MEDS: PERIACTIN 4 MG PO ×3 (08:15→16:43)
[2023-07-08] MEDS: DELTASONE 12.5 MG PO (08:15)
[2023-07-08] MEDS: ROXICODONE 5 MG PO ×2 (09:01→16:46)
--- NOTE | 2023-07-08 13:45 | W.PN.HOSP.TC ---
Today's Communication/Plan
-
waiting snf/rehab approval
continue current med regimen
Assessment / Plan
Assessment / Plan
Acute hypoxic respite insufficiency - resolved
-CT chest PE negative for pulmonary embolism.
-No major pulmonary parenchymal changes except some stable granulomatous changes
-COVID and flu is negative
-Hypoxia not clearly explained at this point.
-will benefit with eventual PFT in pulm office
-off of o2 at this point.
Lower rib cage pain
Thoracic vertebral compression fracture
Chronic steroid use related osteopenia
Intervertebral disc vacuum phenomenon
-Patient extensive thoracic vertebral spinal fracture. CT chest images reviewed and patient likely have intervertebral disc vacuum phenomena. No clinical other signs suspecting of osteomyelitis.
-Patient having lower rib cage bandlike pain likely radicular in nature.
-Patient already on muscle relaxant. Gabapentin added and dose increased
-Change hydrocodone to oxycodone and dose increased for severe pain
Chest pain
-likely MSK in nature
-No previous history of coronary disease
-serial trop neg
-EKG did not show any new ST segment changes
History of giant cell arteritis
Right vision loss
Decreased left eye vision
-Patient was complaining of jaw pain. now gone.
-Already on prednisone 12.5 mg daily, continue.
-Patient gets weekly Actemra, son brought up supply, got dose on sun.
-CRP normal. No other clinical signs of concerning of flare-up
-in process of establishing care with local rheumatology. Primary rheumatology in [place]
Constipation - resolved
-no BM in 4 days, improved with laxative.
-Discussed with RN to use Dulcolax suppository and abdominal
Hypothyroidism
History of prolonged encephalopathy
Chronic ambulatory dysfunction
Essential hypertension
GERD
History of asthma
History of severe constipation/fecal impaction
History of stercoral colitis
Mod Protein calorie malnutrition
DNR -confirmed with son
07/03 care plan discussed with son.
Anticipated Discharge: Within 24 hours
Subjective/Interval History
-
Date of Service: July 08, 2023
No acute issues reported overnight
Objective Data
-
Vital Signs:
Vital Signs
Temp Pulse Resp BP Pulse Ox
98.0 F 73 18 108/67 94
07/08/23 08:13 07/08/23 08:13 07/08/23 08:13 07/08/23 08:14 07/08/23 08:13
I&O
07/07/23 07/08/23 07/09/23
06:59 06:59 06:59
Intake Total 360 / 360 900 / 900
Balance 360 / 360 900 / 900
Review of Systems
-
Respiratory: Reports No Symptoms
Cardiac: Reports No Symptoms
Abdomen/GI: Reports No Symptoms
Physical Exam
-
General: No Apparent Distress and Comfortable
HEENT: Negative Oxygen
Musculoskeletal: No Edema
Neuro: Awake, Alert, Oriented, No Motor Deficits and Nonfocal/Grossly Intact
Psych: Calm
[2023-07-08 15:00] VITALS: BP 146/80
--- NOTE | 2023-07-08 15:53 | CHAP ---
Hiwot was resting comfortably, and said she was doing okay. Son, James, arrived and explained how [place] had allowed his family to have peace and closure with his father's Sunday in ED. He was grateful that his mother could be with her
in that moment, and that the community relations manager came to provide Sacrament of the Sick. The family has strong aisha and they are emotionally steady at this point. James is a strong support for his mother. Emotional and spiritual support provided, along
with the assurance that we are here for them if they have further need.
[2023-07-08] MEDS: LOVENOX 40 MG SC (16:43)
[2023-07-08] MEDS: ZOLOFT 50 MG PO (21:05)
[2023-07-08] MEDS: PRAVACHOL 10 MG PO (21:05)
[2023-07-08 23:28] VITALS: BP 133/65
[2023-07-09] MEDS: SYNTHROID 100 MCG PO (05:16)
[2023-07-09] MEDS: ROXICODONE 5 MG PO (05:19)
[2023-07-09 06:00] VITALS: BMI 16.3
[2023-07-09 07:25] VITALS: BP 129/64
[2023-07-09] MEDS: PROTONIX 40 MG PO (08:41)
[2023-07-09] MEDS: CARAFATE 1 GRAM PO ×4 (08:41→22:07)
[2023-07-09] MEDS: NEURONTIN 200 MG PO ×2 (08:41→22:06)
[2023-07-09] MEDS: PERIACTIN 4 MG PO ×3 (08:41→17:22)
[2023-07-09] MEDS: OSCAL 500 + D 500 MG PO (08:44)
[2023-07-09] MEDS: NORVASC 5 MG PO (08:45)
[2023-07-09] MEDS: DELTASONE 12.5 MG PO (08:45)
[2023-07-09] MEDS: DEPAKOTE SPRINKLE 125 MG PO ×3 (08:45→22:07)
[2023-07-09] MEDS: ZYRTEC 10 MG PO (08:46)
--- NOTE | 2023-07-09 13:04 | CM ---
manager placement reviewed patient's chart and reached out to patient's insurance and still no approval for skilled placement at [facility].
Plan; Skilled placement at [facility] pending Auth.
[facility]
Report [phone]
[2023-07-09 15:32] VITALS: BP 103/60
--- NOTE | 2023-07-09 16:17 | W.PN.HOSP.TC ---
Today's Communication/Plan
-
Discharge planning.
Assessment / Plan
Assessment / Plan
83-year-old female with bilateral jaw pain, epigastric chest pain,
Feels better
CVS: S1-S2 normal
Chest: CTA B/L
Abdomen: Soft, NT / Bowel sounds present
Extremities: No edema,
TALENT CONSULTANT: Non focal exam
#Acute hypoxic respite insufficiency - resolved
-CT chest PE negative for pulmonary embolism.
-No major pulmonary parenchymal changes except some stable granulomatous changes
-COVID and flu is negative
-Hypoxia not clearly explained at this point.
-will benefit with eventual PFT in pulm office
-off of o2 at this point.
#Lower rib cage pain
Thoracic vertebral compression fracture
Chronic steroid use related osteopenia
Intervertebral disc vacuum phenomenon
-Patient extensive thoracic vertebral spinal fracture. CT chest images reviewed and patient likely have intervertebral disc vacuum phenomena. No clinical other signs suspecting of osteomyelitis.
-Patient having lower rib cage bandlike pain likely radicular in nature.
-Patient already on muscle relaxant. Gabapentin added and dose increased
-Change hydrocodone to oxycodone and dose increased for severe pain
#Chest pain
-likely MSK in nature
-No previous history of coronary disease
-Serial trop neg
-EKG did not show any new ST segment changes
#History of giant cell arteritis
Right vision loss
Decreased left eye vision
-Patient was complaining of jaw pain. now gone.
-Already on prednisone 12.5 mg daily, continue.
-Patient gets weekly Actemra, son brought up supply, got dose on sun.
-CRP normal. No other clinical signs of concerning of flare-up
-In process of establishing care with local rheumatology. Primary rheumatology in [place]
#Constipation - resolved -Had a BM today
#Chronic steroid use and immunosuppression with Actemra
#Hypothyroidism-Synthroid another
#History of prolonged encephalopathy- Just before June 01 2023 -'Behavior Disease'- Depakote,Zoloft ( Calling out to God, episodes of intense anxiety)
#Chronic ambulatory dysfunction
#Hyperlipidemia-continue statin
#Essential hypertension-Norvasc
#GERD-Carafate, PPI
#History of asthma
#History of severe constipation/fecal impaction
#History of stercoral colitis
#Mod Protein calorie malnutrition
#Dementia
#DNR
Spoke to son and updated.
D/W Case management.
Anticipated Discharge: Within 24 hours
Subjective/Interval History
-
Date of Service: July 09, 2023
Objective Data
-
Vital Signs:
Vital Signs
Temp Pulse Resp BP Pulse Ox
98 F 79 18 129/64 95
07/09/23 07:25 07/09/23 08:45 07/09/23 07:25 07/09/23 08:45 07/09/23 11:56
I&O
07/08/23 07/09/23 07/10/23
06:59 06:59 06:59
Intake Total 900 / 900 900 / 900
Balance 900 / 900 900 / 900
[2023-07-09] MEDS: LOVENOX 40 MG SC (17:22)
[2023-07-09] MEDS: PRAVACHOL 10 MG PO (22:07)
[2023-07-09] MEDS: ZOLOFT 50 MG PO (22:07)
[2023-07-09 23:05] VITALS: BP 125/67
[2023-07-10 00:25] VITALS: BP 150/89
--- NOTE | 2023-07-10 01:01 | TRANSFER ---
Pt transferred to [address] [place] [address] via bed and ambulated into room 2132 with 1x assist via rolling walker. Pt's chart sent with pt.
[2023-07-10 06:00] VITALS: BMI 16.6
[2023-07-10] MEDS: CARAFATE 1 GRAM PO ×2 (06:37→11:00)
[2023-07-10] MEDS: PERIACTIN 4 MG PO ×2 (06:37→11:00)
[2023-07-10] MEDS: SYNTHROID 100 MCG PO (06:37)
[2023-07-10 07:10] VITALS: BP 127/85
[2023-07-10] MEDS: NORVASC 5 MG PO (09:04)
[2023-07-10] MEDS: DEPAKOTE SPRINKLE 125 MG PO ×2 (09:04→15:15)
[2023-07-10] MEDS: PROTONIX 40 MG PO (09:04)
[2023-07-10] MEDS: NEURONTIN 200 MG PO (09:04)
[2023-07-10] MEDS: DELTASONE 12.5 MG PO (09:04)
[2023-07-10] MEDS: OSCAL 500 + D 500 MG PO (09:04)
[2023-07-10] MEDS: ZYRTEC 10 MG PO (09:05)
[2023-07-10] MEDS: LIDOCAINE 4% PATCH 1 PATCH TOPICAL (11:20)
--- NOTE | 2023-07-10 11:36 | W.PN.HOSP.TC ---
Today's Communication/Plan
-
Discharge
Assessment / Plan
Assessment / Plan
83-year-old female with bilateral jaw pain, epigastric chest pain,
Feels better. Denies any pain or symptoms
CVS: S1-S2 normal
Chest: CTA B/L
Abdomen: Soft, NT / Bowel sounds present
Extremities: No edema,
AGRICULTURAL EQUIPMENT TEST ENGINEER: Non focal exam
#Acute hypoxic respite insufficiency - resolved
-CT chest PE negative for pulmonary embolism.
-No major pulmonary parenchymal changes except some stable granulomatous changes
-COVID and flu is negative
-Hypoxia Possible pain from splinting due to vertebral fracture
-will benefit with eventual PFT in pulm office
-off of o2 at this point.
#Lower rib cage pain
Thoracic vertebral compression fracture
Chronic steroid use related osteopenia
Intervertebral disc vacuum phenomenon
-Patient extensive thoracic vertebral spinal fracture. CT chest images reviewed and patient likely have intervertebral disc vacuum phenomena. No clinical other signs suspecting of osteomyelitis.
-Patient having lower rib cage bandlike pain likely radicular in nature.
-Patient already on muscle relaxant. Gabapentin added and dose increased
-Oxycodone for severe pain
#Chest pain
-likely MSK in nature
-No previous history of coronary disease
-Serial trop neg
-EKG did not show any new ST segment changes
#History of giant cell arteritis
Right vision loss
Decreased left eye vision
-Patient was complaining of jaw pain. now gone.
-Already on prednisone 12.5 mg daily, continue.
-Patient gets weekly Actemra, son brought up supply, got dose on sun.
-CRP normal. No other clinical signs of concerning of flare-up
-In process of establishing care with local rheumatology. Primary rheumatology in [place]
#Constipation - resolved -Had a BM
#Chronic steroid use and immunosuppression with Actemra
#Hypothyroidism-Synthroid another
#History of prolonged encephalopathy- Just before June 01 2023 -'Behavior Disease'- Depakote,Zoloft ( Calling out to God, episodes of intense anxiety)
#Chronic ambulatory dysfunction
#Hyperlipidemia-continue statin
#Essential hypertension-Norvasc
#GERD-Carafate, PPI
#History of asthma
#History of severe constipation/fecal impaction
#History of stercoral colitis
#Mod Protein calorie malnutrition
#Dementia
#DNR
Spoke to son and updated.
D/W Case management.
discharge coordination time 33 min
Anticipated Discharge: Today
Subjective/Interval History
-
Date of Service: July 10, 2023
Objective Data
-
Vital Signs:
Vital Signs
Temp Pulse Resp BP Pulse Ox
97.6 F 95 16 127/85 93
07/10/23 07:10 07/10/23 09:04 07/10/23 07:10 07/10/23 09:04 07/10/23 09:25
I&O
07/09/23 07/10/23 07/11/23
06:59 06:59 06:59
Intake Total 900 / 900 480 / 480
Balance 900 / 900 480 / 480
--- NOTE | 2023-07-10 11:45 | W.DS.TRANS ---
Addendum entered and electronically signed by Keila Camarillo MD 07/10/23 16:44:
Dictation- [id number]
Original Note:
DC Summary - Senior Media Buyer
-
Discharge Instructions:
Discharge Diagnosis/Procedures Acute hypoxic respiratory insufficiency,
thoracic vertebral compression fracture, history
of giant cell arteritis, constipation, chronic
steroid use, hypothyroidism, ambulatory
dysfunction, hyperlipidemia, hypertension, GERD,
history of asthma, history of severe
constipation, fecal impaction and stercoral
colitis, moderate protein calorie malnutrition,
dementia
Diet As tolerated
Activity As tolerated,With assistance
Driving Restrictions No driving
Other Services OT,PT
Instructions:
Stand-Alone Forms:
Changes to Home Medications: Yes
Discharge Medications:
DC Medications w/original date entered in [employer]
albuterol sulfate 90 mcg/actuation aerosol inhaler 2 puff inhalation R Q6HPRN PRN shortness of breath 07/03/23
amlodipine 5 mg tablet 5 mg PO DAILY Blood Pressure 07/03/23
bisacodyl 10 mg rectal suppository 10 mg OK DAILYPRN PRN if no bm aftr mom 07/03/23
calcium carbonate 600 mg-vitamin D3 5 mcg (200 unit) tablet 1 tab PO DAILY Supplement 07/03/23
cetirizine 10 mg tablet 10 mg PO DAILY Allergies 07/03/23
cyproheptadine 4 mg tablet 4 mg PO AC appetite or allergies 07/03/23
divalproex 125 mg capsule,delayed release sprinkle (Depakote Sprinkles) 125 mg PO TID Neurological Condition 07/03/23
levothyroxine 100 mcg tablet 100 mcg PO DAILY Thyroid 07/03/23
magnesium hydroxide 400 mg/5 mL oral suspension (Milk of Magnesia) 30 ml PO [id number] PRN if no by 3rd day 07/03/23
methocarbamol 750 mg tablet 750 mg PO BID Muscle Spasms 07/03/23
pantoprazole 40 mg tablet,delayed release 40 mg PO DAILY Gastrointestinal Issue 07/03/23
pravastatin 10 mg tablet 10 mg PO HS High Cholesterol 07/03/23
prednisone 1 mg tablet 12.5 mg PO UD anti-inflammation 07/03/23
sennosides 8.6 mg-docusate sodium 50 mg tablet (Senna-S) 1 tab-cap PO DAILY@1200 Constipation 07/03/23
sertraline 50 mg tablet 50 mg PO HS Mental Health 07/03/23
sucralfate 1 gram tablet 1 g PO ACHS Gastrointestinal Issue 07/03/23
tocilizumab 162 mg/0.9 mL subcutaneous syringe (Actemra) 162 mg SC WE Autoimmune Disorder 07/03/23
acetaminophen 325 mg tablet (Tylenol) 650 mg (2 x 325 mg) PO Q6HPRN PRN mild pain #0 tabs 07/10/23
gabapentin 100 mg capsule 200 mg (2 x 100 mg) PO BID Neurological Condition #0 caps 07/10/23
lidocaine 4 % topical patch 1 patch topical DAILY Pain #0 ea 07/10/23
oxycodone 5 mg tablet 5 mg PO Q4HPRN PRN mod pain #8 tabs 07/10/23
polyethylene glycol 3350 17 gram oral powder packet (HealthyLax) 17 g PO DAILYPRN PRN constipation #0 ea 07/10/23
Home Medication Changes
new
gabapentin 100 mg capsule 200 mg (2 x 100 mg) PO BID Neurological Condition #0 caps 07/10/23
lidocaine 4 % topical patch 1 patch topical DAILY Pain #0 ea 07/10/23
oxycodone 5 mg tablet 5 mg PO Q4HPRN PRN mod pain #8 tabs 07/10/23
polyethylene glycol 3350 17 gram oral powder packet (HealthyLax) 17 g PO DAILYPRN PRN constipation #0 ea 07/10/23
Pending Results: No
--- NOTE | 2023-07-10 11:48 | CM ---
Addendum entered by Natalya D'Va [facility] 07/10/23 14:59:
Fax from [facility] indicating SNF approval auth# [id number]
Daxed to Rosy/admission [phone]
Addendum entered by Natalya D'Va [facility] 07/10/23 14:31:
IMM emailed to son per request
[email or web address]
Original Note:
CM reviewed pt with Dr Camarillo and pt ready for dc
Call with [facility] to follow up on pending auth
Noted that pt's [employer] policy termed 07/06/23
Admissions confirmed
Per [facility] admissions, pt now under traditional Medicare effective 07/07/23 (policy# #[id number])
[facility] confirmed pt can return back to SNF today under Medicare
Update to son/Jaems who is in agreement with plan
Requested B:S be arranged due to dementia/behaviors
Medical necessity and transport form on chart
BLS arranged with [facility] bulk pick[facility]
IMM verbally reviewed over phone
Left VM for son requesting email if he would like a copy
Discharge Disposition- return [facility] via BLS/[facility] pickup
Phone- [phone] Fax- [phone]
[2023-07-10 15:11] VITALS: BP 112/68
--- NOTE | 2023-07-10 15:56 | PTCARENOTE ---
Patient discharged back to [facility], transported [facility]. This RN removed patient's IV, patient provided hygiene and dressed in own clothes prior to transport. Report called to Nery at facility. Dentures in mouth prior to transport.
== END 2023-07-10 16:56 | DRG 543 ==
LOC: 2 NORTH 13:19
PROVIDERS: Clinical Nurse Specialist Family Health; ADMITTING PHYSICIAN Hospitalist; ATTENDING PHYSICIAN Hospitalist; CONSULT PHYSICIAN Internal Medicine Critical Care Medicine; EMERGENCY PHYSICIAN Emergency Medicine; FAMILY PHYSICIAN Internal Medicine
DX: M48.54XA Collapsed vertebra, not elsewhere classified, thoracic region, initial encounter for fracture (principal); D84.9 Immunodeficiency, unspecified; E44.0 Moderate protein-calorie malnutrition; Z68.1 Body mass index [BMI] 19.9 or less, adult; F03.94 Unspecified dementia, unspecified severity, with anxiety; Z66 Do not resuscitate; M48.56XA Collapsed vertebra, not elsewhere classified, lumbar region, initial encounter for fracture; H54.61 Unqualified visual loss, right eye, normal vision left eye; M81.0 Age-related osteoporosis without current pathological fracture; I10 Essential (primary) hypertension; E78.5 Hyperlipidemia, unspecified; E03.9 Hypothyroidism, unspecified; J45.909 Unspecified asthma, uncomplicated; K21.9 Gastro-esophageal reflux disease without esophagitis; K56.41 Fecal impaction; M31.6 Other giant cell arteritis; R07.81 Pleurodynia; M10.9 Gout, unspecified; R09.02 Hypoxemia; M85.89 Other specified disorders of bone density and structure, multiple sites; R26.2 Difficulty in walking, not elsewhere classified; Z11.52 Encounter for screening for COVID-19; Z79.52 Long term (current) use of systemic steroids; Z79.899 Other long term (current) drug therapy
CPT/HCPCS: 71046; 71275; 80048; 80061; 80164; 83690; 83880; 84439; 84443; 84484; 85025; 85652; 86140; 87070; 87502; 87811; 87880; 93005; 97163; 97166; 97530; 99285; Q9967

== ENCOUNTER 2023-07-25 07:43 | Emergency (ER) | payer MEDICARE, SELFPAY ==
[2023-07-25 07:45] VITALS: BP 140/81
[2023-07-25 07:47] VITALS: BMI 18.5
[2023-07-25 07:48] VITALS: BP 140/81
[2023-07-25 07:51] VITALS: BP 156/80
[2023-07-25 08:12] LABS: % Eosinophils 3.2 % (0-6); % Immature Granulocytes 0.4 % (0-0.5); % Lymphocytes 42.1 % (20.5-51.1); % Monocytes 10.5 % (1.7-9.3); % Neutrophils 42.8 % (42.2-75.2); Absolute Basophils 0.1 10^3/uL (0-0.2); Absolute Eosinophils 0.2 10^3/uL (0-0.7); Absolute Lymphocytes 2.1 10^3/uL (1.2-3.4); Absolute Monocytes 0.5 10^3/uL (0.1-0.6); Absolute Neutrophils 2.1 10^3/uL (1.4-6.5); Hematocrit 44.1 % (37.0-47.0); Hemoglobin 14.2 g/dL (12.0-16.0); Mean Corp Hgb Conc. 32.2 g/dL (33.0-37.0); Mean Corpuscular Hgb 30.6 pg (27.0-31.0); Mean Platelet Volume 9.4 fL (7.4-10.4); Nucleated Red Blood Cells % 0 %; Platelet Count 179 10^3/uL (130-400); Red Blood Cell Count 4.64 10^6/uL (4.20-5.40); Red Cell Dist. Width 13.8 % (11.5-14.5)
--- NOTE | 2023-07-25 08:19 | ED.GENMED ---
History of Present Illness
General
Chief Complaint: Abnormal Lab Value
Source: patient
Exam Limitations: none
Time Seen by Provider: 07/25/23 08:05
Nursing documentation reviewed up to this point in time: agreed with
Travel History
Have you had any contact with someone who has COVID-19?: No
Do you have any symptoms of coronavirus? Fever > 100 degrees, chills, cough, shortness of breath, sore throat, loss of taste or smell, muscle aches, or headache?: No
History of Present Illness
History of Present Illness:
Patient with history of dementia, presents to ED from care home for evaluation after an abnormal EKG. On arrival, patient has no complaints. Denies chest pain. Denies shortness of breath. Denies nausea or vomiting. Denies dizziness. Denies
recent illness. Denies loss of appetite. Patient states that she is in ED because her 'boss' wanted her to be checked out.
Review of Systems
Review of Systems
Allergies reviewed?: Yes
All Other Systems: ROS reviewed and negative except as documented in HPI and ROS
Constitutional: Reports no symptoms
Respiratory: Reports no symptoms; Denies trouble breathing
Cardiac: Reports no symptoms; Denies chest pain or palpitations
ABD/GI: Reports no symptoms; Denies abdominal pain or nausea
Musculoskeletal: Reports no symptoms
Skin: Reports no symptoms
Neurological: Reports no symptoms
Phy Exam
Physical Exam
Physical Exam:
Physical Exam
General: no apparent distress, not acutely ill. afebrile.
Head: nc/at. eomi
Neck: supple. no meningeal signs.
Heart: s1/s2 regular rate and rhythm, no murmur. equal radial pulses.
Lungs: no acute respiratory distress. clear bilaterally
Abdomen: normal bowel sounds. not tender.
Neuro: alert and oriented. no focal neurological deficits
Skin: no rash
Psychiatric: well kept. interactive and cooperative
Extremities: no edema. no calf tenderness.
Scores
Heart Score for Chest Pain Patients
STEMI patient?: No
History: Slightly or Non-Suspicious
ECG: Normal
Age: >/= 65 years
Risk Factors: 1 or 2 Risk Factors
Troponin: </= Normal Limit
Heart Score for Chest Pain Patients: 3
Heart Score Risk: 2.5% MACE over next 6 weeks
Course
Orders/Labs/Results
Orders:
Orders
07/25/23 07:47
EKG [Electrocardiogram (*1)] Urgent
Reason for Study: Abdominal Pain
EKG- Treatment ONCE
07/25/23 08:03
Complete Blood Count/With Diff Urgent
Comprehensive Metabolic Panel Urgent
Lipase Urgent
Troponin I Urgent
07/25/23 08:39
0.9% Sodium Chloride 500 ml [Nss] 500 ml IV BOLUS
Abnormal Lab Results
07/25/23
08:03
MCHC 32.2 L g/dL
(33.0-37.0)
Monocytes % 10.5 H %
(1.7-9.3)
Carbon Dioxide 31 H mmol/L
(22-30)
BUN 25 H mg/dl
(7-17)
Creatinine 0.5 L mg/dL
(0.6-1.0)
Alkaline Phosphatase 131 H U/L
(38-126)
Total Protein 5.9 L g/dl
(6.3-8.2)
Lipase 407 H U/L
(23-300)
07/25/23 08:03
07/25/23 08:03
Vital Signs
Initial and Last Documented VS:
Initial Vital Signs
BP
140/81
07/25/23 07:45
Last Documented Vital Signs
Temp Pulse Resp BP Pulse Ox
98.3 F 80 17 120/78 95
07/25/23 07:48 07/25/23 10:45 07/25/23 10:45 07/25/23 10:00 07/25/23 10:45
MDM/Problems Addressed
MDM/Problems Addressed:
Spoke with SORAIDA Howard, at [place] [facility]. Patient complains of upper abdominal pain, shortly after having breakfast yesterday morning. Symptoms lasted approximately 40 minutes, with resolution after giving Tylenol. Patient has not had any
recurrent pain. Patient was evaluated by nurse practitioner yesterday afternoon who ordered EKG. EKG was not obtained until later in the evening, which revealed 'myocardial infarction'. As patient is new to the facility, without any available
previous EKGs, decision was made to transfer patient to ED for an evaluation this morning. However, patient has not had any recurrent discomfort since yesterday morning.
EKG, compared to 06/28 - unchanged.
History and exam inconsistent with ACS.
Blood work sig. for mildly elevated lipase level - suggestive of potential mild pancreatitis vs mild gastritis with reactive elevation of lipase. Nonetheless, patient without any abdominal discomfort with benign abdominal exam. No indication for any
further workup at this time. Pt with extensive workup within 2 weeks, including negative CT PE study.
Pt is otherwise afebrile, hemodynamically stable, without any distress at time of discharge back to [place].
*EKG
Interpreted by ED Provider?: Yes
EKG Intrepretation Date: 07/25/23
Heart Rate: 89
Rate: normal
Rhythm: sinus
[place]: left axis deviation
Interval: normal interval
*Critical Care Note
Total Time (30-74mins, 75-104mins- exclusive of procedures): Not Applicable
ED Attending Note
-
Portions of this chart may have been created with voice recognition software.� Occasional wrong word or��sound alike� substitutions may have occurred due to the inherent limitations of voice recognition software.
Discharge Plan
Departure
Patient Disposition: Care Home/SNF
Date of Disposition: 07/25/23
Time of Disposition: 08:45
Patient with high blood pressure during this ER visit?: Yes
Discharge Problem:
Pancreatitis, Dehydration
Instructions: Dehydration, Adult (DC), Pancreatitis (DC), [place] Diet
Prescriptions:
No Action
cetirizine 10 mg Tablet
10 mg PO DAILY
sucralfate 1 gram Tablet
1 g PO ACHS
amlodipine 5 mg Tablet
5 mg PO DAILY
Rx Instructions:
HOLD for SBP <110 DBP <60 HR <60
pravastatin 10 mg Tablet
10 mg PO HS
magnesium hydroxide [Milk of Magnesia] 400 mg/5 mL Suspension
30 ml PO [id number] PRN (Reason: if no by day)
prednisone 1 mg Tablet
8 mg PO UD
Rx Instructions:
07/23-07/29=8mg daily, 07/30-08/05=7mg daily, 08/06-08/19=6mg daily, 08/20-09/02=5mg daily, 09/03-09/16=4mg daily, 09/17-09/30=3mg daily, 10/01-10/14=2mg daily, 10/15-10/28=1mg daily
bisacodyl 10 mg Suppository
[address] DAILYPRN PRN (Reason: if no bm aftr mom)
pantoprazole 40 mg Tablet,Delayed Release (Dr/Ec)
40 mg PO DAILY
albuterol sulfate 90 mcg/actuation Hfa Aerosol Inhaler
2 puff INHALATION R Q6HPRN PRN (Reason: shortness of breath)
sertraline 50 mg Tablet
50 mg PO HS
Actemra 162 mg/0.9 mL Syringe
162 mg SC WE
divalproex [Depakote Sprinkles] 125 mg Capsule, Delayed Rel Sprinkle
125 mg PO TID
sennosides-docusate sodium [Senna-S] 8.6-50 mg Tablet
1 tab-cap PO DAILY@1400
polyethylene glycol 3350 [HealthyLax] 17 gram Powder In Packet
17 g PO DAILYPRN PRN (Reason: constipation) Qty: 0 0RF
gabapentin 100 mg Capsule
200 mg PO BID Qty: 0 0RF
acetaminophen [Tylenol] 325 mg Tablet
650 mg PO Q6HPRN PRN (Reason: mild pain) Qty: 0 0RF
levothyroxine 125 mcg Tablet
125 mcg PO DAILY
calcium carbonate-vitamin D3 [Calcium 600 + D(3)] 600 mg-10 mcg (400 unit) Tablet
1 tab PO DAILY
baclofen 5 mg Tablet
5 mg PO BID
lidocaine 4 % adhesive patch,medicated
1 patch topical DAILY
oxycodone 5 mg tablet
5 mg PO Q4HPRN PRN (Reason: severe pain)
Referrals:
Romeo Dacosta I., DO [Family Provider] -
Activity Restrictions/Additional Instructions:
As discussed, you are being discharged back to care home for continual evaluation and treatment.
Interventions
Interventions:
*Risk Screen - Suicide Last Done: 07/25/23 07:49
*General Assessment Last Done: 07/25/23 07:49
*Neglect/Abuse Screening Last Done: 07/25/23 07:49
*ED COVID-19 Vaccine History Last Done: 07/25/23 07:49
*Nursing Disposition Last Done: 07/25/23 10:58
Discharge Date and Time
Discharge Date/Time: 07/25/23 10:59
Print Language: SLOVENIAN
[2023-07-25 08:26] LABS: ALT (SGPT) 27 U/L (0-35); AST (SGOT) 28 U/L (14-36); Albumin 3.8 g/dl (3.5-5.0); Alkaline Phosphatase 131 U/L (38-126); Blood Urea Nitrogen 25 mg/dl (7-17); Calcium 9.1 mg/dl (8.4-10.2); Carbon Dioxide 31 mmol/L (22-30); Chloride 106 mmol/L (98-107); Estimated Creatinine Clearance 53 ml/min; Glucose 91 mg/dl (70-99); Lipase 407 U/L (23-300); Potassium 3.5 mmol/L (3.5-5.1); Sodium 144 mmol/L (135-145); Total Bilirubin 1.3 mg/dl (0.2-1.3); Total Protein 5.9 g/dl (6.3-8.2); eGFR > 60.00
[2023-07-25 08:37] LABS: Troponin I < 0.012 ng/ml
[2023-07-25 09:00] VITALS: BP 136/61
[2023-07-25] MEDS: NSS 500 IV (09:15)
[2023-07-25 10:00] VITALS: BP 120/78
== END 2023-07-25 10:59 ==
LOC: EMR 07:43
PROVIDERS: Physician Assistant Medical; EMERGENCY PHYSICIAN Emergency Medicine; FAMILY PHYSICIAN Internal Medicine
DX: K85.90 Acute pancreatitis without necrosis or infection, unspecified (principal); E86.0 Dehydration; R03.0 Elevated blood-pressure reading, without diagnosis of hypertension; F03.90 Unspecified dementia, unspecified severity, without behavioral disturbance, psychotic disturbance, mood disturbance, and anxiety; Z88.0 Allergy status to penicillin; Z91.048 Other nonmedicinal substance allergy status
CPT/HCPCS: 99284; 96360; 80053; 83690; 84484; 85025; 93005

== ENCOUNTER 2023-07-27 23:06 | Observation (INO) | payer MEDICARE, SELFPAY ==
[2023-07-27 20:50] VITALS: BMI 16.9
[2023-07-27 20:58] LABS: Glucose - Point of Care 90 mg/dl (70-99)
[2023-07-27 21:01] VITALS: BP 127/57
[2023-07-27 21:19] LABS: % Basophils 0.5 % (0-2); % Eosinophils 1.4 % (0-6); % Immature Granulocytes 0.4 % (0-0.5); % Lymphocytes 28.4 % (20.5-51.1); % Monocytes 9.5 % (1.7-9.3); % Neutrophils 59.8 % (42.2-75.2); Absolute Eosinophils 0.1 10^3/uL (0-0.7); Absolute Lymphocytes 1.6 10^3/uL (1.2-3.4); Absolute Monocytes 0.5 10^3/uL (0.1-0.6); Absolute Neutrophils 3.3 10^3/uL (1.4-6.5); Hematocrit 40.7 % (37.0-47.0); Hemoglobin 13.9 g/dL (12.0-16.0); Mean Corp Hgb Conc. 34.2 g/dL (33.0-37.0); Mean Corpuscular Hgb 31.2 pg (27.0-31.0); Mean Corpuscular Volume 91.3 fL (81.0-99.0); Mean Platelet Volume 9.6 fL (7.4-10.4); Nucleated Red Blood Cells % 0 %; Platelet Count 194 10^3/uL (130-400); Red Blood Cell Count 4.46 10^6/uL (4.20-5.40); Red Cell Dist. Width 13.7 % (11.5-14.5); White Blood Cell Count 5.6 10^3/uL (4.8-10.8)
--- NOTE | 2023-07-27 21:25 | ED.GENMED ---
History of Present Illness
<CULLEN Green - Last Filed: 07/28/23 00:32>
General
Chief Complaint: Change in Mental Status
Source: family (Марина)
Exam Limitations: altered mental status
Time Seen by Provider: 07/27/23 20:51
History of Present Illness
History of Present Illness:
This is a 83 year old female that is brought in by ambulance from [facility]. Grandson states that his dad was there today and he is POA. States that she was very lethargic. Told that the nurses said she went to sleep around 2pm and her vital
signs were stable. States that her roommate kept her up all night and that they thought she was just tired. State that he got there to see her at 7:30pm and he did a sternal rub and patient would wake up very slightly and the go right back to sleep.
States that he felt she was having trouble breathing so he called his dad and they asked for her to be sent to the Hospital. States that patient is a DNR. As far as he is aware she had not had any fever, chills, nausea, vomiting, diarrhea.
Past History
<CULLEN Green - Last Filed: 07/28/23 00:32>
Past History
ED Past Medical History: Asthma, Hypothyroidism and Other (Dementia, Constipation, Bowel obstruction, Spinal compression fractures, Osteoporosis)
ED Past Surgical History: None
Social History
Tobacco: Former smoker
Personal:
Living: halfway ([facility])
Review of Systems
<CULLEN Green - Last Filed: 07/28/23 00:32>
Review of Systems
Other source history: family
All Other Systems: ROS reviewed and negative except as documented in HPI and ROS
Constitutional: Reports no symptoms; Denies fever or chills
EENT: Reports no symptoms
Respiratory: Reports trouble breathing; Denies cough
Cardiac: Reports no symptoms
ABD/GI: Reports no symptoms; Denies nausea, vomiting or diarrhea
: Reports no symptoms
Skin: Reports no symptoms
Neurological: Reports other (Change in mental status. Unresponsive)
Psychiatric: Reports no symptoms
Phy Exam
<CULLEN Green - Last Filed: 07/28/23 00:32>
General Physical Exam
General Presentation: no apparent distress
General age: appears stated age
General Skin: warm and dry
General Habitus: elderly
General Mental: other (Nonverbal, Mo[place] with turning)
ENT Exam
ENT Exam: TM's normal
Cardiovascular Exam
Cardiovascular Exam: regular rate/rhythm, no edema and normal peripheral pulses
Pulmonary Exam
Pulmonary Exam: no respiratory distress, chest non tender, no rhonchi, no wheezing, no cough and other (Rales at bases)
Gastrointestinal Exam
Gastrointestinal Exam: non tender, soft, no organomegaly, no pulsatile mass, non distended and other (Hypoactive bowel sounds)
Musculoskeletal Exam
Musculoskeletal Exam: no edema
Skin Exam
Skin Exam: normal color, warm/dry, no rash and no petechia
Psychiatric Exam
Psychiatric Exam: other (Unresponsive at this time to verbal commands)
Course
<CULLEN Green - Last Filed: 07/28/23 00:32>
Orders/Labs/Results
Orders:
Orders
07/27/23 21:08
Bedside Glucose- Treatment ONCE
Cardiac Monitoring- Treatment ONCE
IV Insert/Care/Rem.- Treatment PRN
Pulse Ox/spot Check [RESP] Urgent
Quantity: 1
07/27/23 21:09
Fentanyl, Urine Urgent
Urine Drug Abuse Screen Urgent
Date Specimen was Collected: 07/27/23
Time Specimen was Collected: 21:08
07/27/23 21:10
Acetaminophen Urgent
Alcohol Urgent
Complete Blood Count/With Diff Urgent
Comprehensive Metabolic Panel Urgent
Salicylate Urgent
07/27/23 21:12
Electrocardiogram (*1) Urgent
Reason for Study: Other
Other Reason for Exam: Potential overdose
EKG- Treatment ONCE
Pulse Ox/spot Check [RESP] Urgent
Quantity: 1
07/27/23 21:24
Straight cath- Treatment ONCE
0.9% Sodium Chloride 1000 ml [Nss] 1,000 ml IV BOLUS
07/27/23 21:25
CT Head W/o Iv Contrast Urgent
Comment:
Reason For Exam: Change in mental status
07/27/23 22:03
COVID-19 Antigen Urgent
Source: Nasal Swab
Lactic Acid Urgent
Troponin I Urgent
Blood Culture Q30M
SHENA Source: Blood/Venous
Specimen Description:
Blood Culture Q30M
SHENA Source: Blood/Venous
Specimen Description:
07/27/23 22:55
Admit/Transfer Patient As Directed
Co-Sign Provider:
Level of Care: Observation services
Assign to:: IMU- Intermediate Care
Physician / Group: alex
Diagnosis: opiate overdose
Code Status As Directed
Resuscitation Status: Do not resuscitate
Reached after discussion with pt or family/Healthcare POA: Yes
DNR Bracelet Application ONCE
07/27/23 22:57
Naloxone [Narcan] 0.4 mg IV NOW STA
07/27/23 23:12
Arterial Blood Gas Urgent
%Oxygen/Room Air: room air
07/27/23 23:49
Urinalysis Reflex To Culture Urgent
Date Specimen was Collected: 07/27/23
Time Specimen was Collected: 23:48
Abnormal Lab Results
07/27/23 07/27/23
21:09 21:10
MCH 31.2 H pg
(27.0-31.0)
Monocytes % 9.5 H %
(1.7-9.3)
Carbon Dioxide 33 H mmol/L
(22-30)
BUN 26 H mg/dl
(7-17)
Creatinine 0.5 L mg/dL
(0.6-1.0)
Alkaline Phosphatase 128 H U/L
(38-126)
Total Protein 5.4 L g/dl
(6.3-8.2)
Salicylates < 1.0 L mg/dl
(2.0-20.0)
Acetaminophen < 10 L ug/ml
(10-30)
U Benzodiazepines Scrn Positive H
(Negative)
07/27/23 21:10
07/27/23 21:10
Carbon dioxode elevation. Alk phos slightly elevated. Total protein low. Negative for Salicylates and Acetaminophen. Negative for any alcohol. Troponin <0.012, Urine negative for infection. Urine drug positive or Benzodiazepines.
Vital Signs
Initial and Last Documented VS:
Initial Vital Signs
Temp
98.3 F
07/27/23 20:50
Last Documented Vital Signs
Temp Pulse Resp BP Pulse Ox
98.3 F 87 13 102/72 98
07/27/23 20:50 07/27/23 23:30 07/27/23 23:30 07/27/23 23:30 07/27/23 23:30
<Chantel Maki MD - Last Filed: 07/27/23 22:23>
Orders/Labs/Results
Orders:
Orders
07/27/23 21:08
Bedside Glucose- Treatment ONCE
Cardiac Monitoring- Treatment ONCE
IV Insert/Care/Rem.- Treatment PRN
Pulse Ox/spot Check [RESP] Urgent
Quantity: 1
07/27/23 21:09
Fentanyl, Urine Urgent
Urine Drug Abuse Screen Urgent
Date Specimen was Collected: 07/27/23
Time Specimen was Collected: 21:08
07/27/23 21:10
Acetaminophen Urgent
Alcohol Urgent
Complete Blood Count/With Diff Urgent
Comprehensive Metabolic Panel Urgent
Salicylate Urgent
07/27/23 21:12
Electrocardiogram (*1) Urgent
Reason for Study: Other
Other Reason for Exam: Potential overdose
EKG- Treatment ONCE
Pulse Ox/spot Check [RESP] Urgent
Quantity: 1
07/27/23 21:24
Straight cath- Treatment ONCE
0.9% Sodium Chloride 1000 ml [Nss] 1,000 ml IV BOLUS
07/27/23 21:25
CT Head W/o Iv Contrast Urgent
Comment:
Reason For Exam: Change in mental status
07/27/23 22:03
COVID-19 Antigen Urgent
Source: Nasal Swab
Lactic Acid Urgent
Troponin I Urgent
Blood Culture Q30M
SHENA Source: Blood/Venous
Specimen Description:
Blood Culture Q30M
SHENA Source: Blood/Venous
Specimen Description:
07/27/23 22:55
Admit/Transfer Patient As Directed
Co-Sign Provider:
Level of Care: Observation services
Assign to:: IMU- Intermediate Care
Physician / Group: alex
Diagnosis: opiate overdose
Code Status As Directed
Resuscitation Status: Do not resuscitate
Reached after discussion with pt or family/Healthcare POA: Yes
DNR Bracelet Application ONCE
07/27/23 22:57
Naloxone [Narcan] 0.4 mg IV NOW STA
07/27/23 23:12
Arterial Blood Gas Urgent
%Oxygen/Room Air: room air
07/27/23 23:49
Urinalysis Reflex To Culture Urgent
Date Specimen was Collected: 07/27/23
Time Specimen was Collected: 23:48
Abnormal Lab Results
07/27/23 07/27/23
21:09 21:10
MCH 31.2 H pg
(27.0-31.0)
Monocytes % 9.5 H %
(1.7-9.3)
Carbon Dioxide 33 H mmol/L
(22-30)
BUN 26 H mg/dl
(7-17)
Creatinine 0.5 L mg/dL
(0.6-1.0)
Alkaline Phosphatase 128 H U/L
(38-126)
Total Protein 5.4 L g/dl
(6.3-8.2)
Salicylates < 1.0 L mg/dl
(2.0-20.0)
Acetaminophen < 10 L ug/ml
(10-30)
U Benzodiazepines Scrn Positive H
(Negative)
07/27/23 21:10
07/27/23 21:10
Vital Signs
Initial and Last Documented VS:
Initial Vital Signs
Temp
98.3 F
07/27/23 20:50
Last Documented Vital Signs
Temp Pulse Resp BP Pulse Ox
98.3 F 87 13 102/72 98
07/27/23 20:50 07/27/23 23:30 07/27/23 23:30 07/27/23 23:30 07/27/23 23:30
<CULLEN Green - Last Filed: 07/28/23 00:32>
MDM/Problems Addressed
Differential Diagnosis Includes:
CVA, COVID,
MDM/Problems Addressed:
This is a 83 year old female that comes in by ambulance with change in mental status.
Will get labs, CT head, give IV fluids, COVID and urine.
Chronic conditions affecting care:
NA
Acute Exacerbation and/or Progression of Chronic Illness:
NA
<CULLEN Green - Last Filed: 07/28/23 00:32>
*Radiology
Radiology exam reviewed: radiology read reviewed (CT head-No acute intracranial abnormalities. Findings compatible with diffuse cortical atrophy with nonspecific white matter changes as described above)
*Pulse Oximetry
Patient hypoxic: no
*Oxyacetylene Burner Interpretation
Rate: normal
Heart Rate: 81
Rhythm: sinus
*Critical Care Note
Total Time (30-74mins, 75-104mins- exclusive of procedures): Not Applicable
ED Attending Note
<CULLEN Green - Last Filed: 07/28/23 00:32>
-
Portions of this chart may have been created with voice recognition software.� Occasional wrong word or��sound alike� substitutions may have occurred due to the inherent limitations of voice recognition software.
<Chantel Maki MD - Last Filed: 07/27/23 22:23>
ED Attending Note
Patient seen and examined by attending physician: Yes
I performed the substantive portion of visit, reviewed & personally made and approve the management plan that is documented in note by myself or RALPH.: Yes
ED Attending Note:
Patient presents with marked lethargy and difficulty arousing. Bilateral pinpoint pupils. Patient has a nonfocal neurological exam and has decreased responsiveness. Equal breath sounds bilaterally
Discharge Plan
Departure
Patient Disposition: Admit
Date of Disposition: 07/27/23
Time of Disposition: 22:49
Admit to: Med/Surg
Presentation/result/management discussed w/ accepting MD/DO: Hospitalist
Patient with high blood pressure during this ER visit?: No
Condition: Fair
Covid-19: Negative COVID-19
Discharge Problem:
Acute alteration in mental status
Interventions
Interventions:
*Risk Screen - Suicide Last Done: 07/27/23 20:50
*General Assessment Last Done: 07/27/23 20:50
*Neglect/Abuse Screening Last Done: 07/27/23 20:50
ED- Fall Risk Assessment Last Done: 07/27/23 20:50
*ED COVID-19 Vaccine History Last Done: 07/27/23 20:50
ED- Neurological Assessment Last Done: 07/28/23 00:00
ED Swallowing Screen Last Done: 07/28/23 00:19
[2023-07-27 21:30] VITALS: BP 111/71
[2023-07-27 21:41] LABS: ALT (SGPT) 25 U/L (0-35); AST (SGOT) 33 U/L (14-36); Acetaminophen < 10 ug/ml (10-30); Albumin 3.5 g/dl (3.5-5.0); Alkaline Phosphatase 128 U/L (38-126); Blood Urea Nitrogen 26 mg/dl (7-17); Calcium 9.2 mg/dl (8.4-10.2); Carbon Dioxide 33 mmol/L (22-30); Chloride 103 mmol/L (98-107); Estimated Creatinine Clearance 48 ml/min; Glucose 94 mg/dl (70-99); Potassium 3.6 mmol/L (3.5-5.1); Salicylate < 1.0 mg/dl (2.0-20.0); Sodium 140 mmol/L (135-145); Total Protein 5.4 g/dl (6.3-8.2); eGFR > 60.00
[2023-07-27 21:44] LABS: Alcohol None Detected
[2023-07-27] MEDS: NSS 1000 IV (22:13)
[2023-07-27 22:38] LABS: COVID-19 Antigen Negative (Negative)
[2023-07-27 22:39] LABS: Lactic Acid 1.2 mmol/L (0.7-2.0)
[2023-07-27 22:51] LABS: Troponin I < 0.012 ng/ml
--- NOTE | 2023-07-27 23:01 | HPS.HSE ---
Family Physician
-
Family Physician: Romeo Dacosta
Chief Complaint
-
altered mental status
History of Present Illness
83-year-old female past medical history of giant cell arteritis, asthma, hypothyroidism, dementia, spinal compression fractures, osteoporosis, hyperlipidemia, hypertension, GERD, severe constipation, presenting from [facility] for change in
mental status. History obtained from grandson at bedside.
Patient was apparently normal at lunchtime. Grandson states that his father was there and she was very lethargic after nap. Patient went to sleep around 2 PM and vital signs were stable. Patient's roommate was apparently keeping her up all night
and they thought she was tired. Grandson saw her at 7:30 PM and did sternal rub the patient would wake up very slightly and go right back to sleep. He felt she was having trouble breathing so she was sent to the hospital. Patient did not have any
fevers, chills, nausea vomiting or diarrhea.
Patient has not been requiring oxycodone recently as per grandson. She does not smoke, drink alcohol or use any drugs currently. She has had a history of psychiatric problems in the past and currently has dementia. She is sometimes rude but
generally well-mannered.
Patient was noted to have pinpoint pupils by grandson. She apparently received Narcan via EMS without any improvement.
Patient was recently admitted from 07/02 to 07/09 for acute hypoxic respiratory insufficiency with negative workup.
Medical History
Past Medical History
Past Medical History: Reports Other (giant cell arteritis, asthma, hypothyroidism, dementia, spinal compression fractures, osteoporosis, hyperlipidemia, hypertension, GERD, severe constipation)
Past Surgical History: Reports None
Social History
Tobacco: Non-smoker
Alcohol: None
Drug: None
Family History
Family History: Not pertinent
Allergies / Home Medications
Allergies reflects when Allergies were last updated in [employer].
Home Medications with original date entered in [employer]
Allergy/Medication List:
Allergies
Allergy/AdvReac Type Severity Reaction Status Date / Time
nickel Allergy Rash Verified 07/25/23 07:47
Penicillins Allergy Rash Verified 07/25/23 07:47
Home Medications
albuterol sulfate 90 mcg/actuation aerosol inhaler 2 puff inhalation R Q6HPRN PRN shortness of breath 07/03/23
amlodipine 5 mg tablet 5 mg PO DAILY Blood Pressure 07/03/23
bisacodyl 10 mg rectal suppository 10 mg RI DAILYPRN PRN if no bm aftr mom 07/03/23
cetirizine 10 mg tablet 10 mg PO DAILY Allergies 07/03/23
divalproex 125 mg capsule,delayed release sprinkle (Depakote Sprinkles) 125 mg PO TID Neurological Condition 07/03/23
magnesium hydroxide 400 mg/5 mL oral suspension (Milk of Magnesia) 30 ml PO [id number] PRN if no by 3rd day 07/03/23
pantoprazole 40 mg tablet,delayed release 40 mg PO DAILY Gastrointestinal Issue 07/03/23
pravastatin 10 mg tablet 10 mg PO HS High Cholesterol 07/03/23
prednisone 1 mg tablet 8 mg PO UD anti-inflammation 07/03/23
sennosides 8.6 mg-docusate sodium 50 mg tablet (Senna-S) 1 tab-cap PO DAILY@1400 Constipation 07/03/23
sertraline 50 mg tablet 50 mg PO HS Mental Health 07/03/23
sucralfate 1 gram tablet 1 g PO ACHS Gastrointestinal Issue 07/03/23
tocilizumab 162 mg/0.9 mL subcutaneous syringe (Actemra) 162 mg SC WE Autoimmune Disorder 07/03/23
gabapentin 100 mg capsule 200 mg (2 x 100 mg) PO BID Neurological Condition #0 caps 07/10/23
polyethylene glycol 3350 17 gram oral powder packet (HealthyLax) 17 g PO DAILYPRN PRN constipation #0 ea 07/10/23
baclofen 5 mg tablet 5 mg PO BID 07/25/23
calcium carbonate 600 mg-vitamin D3 10 mcg (400 unit) tablet (Calcium 600 + D(3)) 1 tab PO DAILY 07/25/23
levothyroxine 125 mcg tablet 125 mcg PO DAILY 07/25/23
lidocaine 4 % topical patch 1 patch topical DAILY lower back 07/25/23
oxycodone 5 mg tablet 5 mg PO Q4HPRN PRN moderate to severe pain 07/25/23
acetaminophen 325 mg tablet (Tylenol) 650 mg PO Q6HPRN PRN mild pain/temp>100.4 07/27/23
Review of Systems
-
Unable to obtain full review of systems at this time due to: Patient Non-verbal
History Source: Family
A 12 point ROS was completed and negative except as noted: No
Physical Exam
Vital Signs
Vital Signs
Temp Pulse Resp BP Pulse Ox
98.3 F 80 15 111/71 100
07/27/23 20:50 07/27/23 22:45 07/27/23 22:45 07/27/23 21:30 07/27/23 22:45
Physical Exam
General: Well Developed, Well Nourished and No Apparent Distress
HEENT: NormoCephalic, Moist mucous membranes and Atraumatic
Respiratory: Clear
Cardiac: S1/S2 and Regular Rhythm; No Murmur or Rub
GI: Soft, Non Tender, Non Distended and Normal Bowel Sounds; No Organomegaly
Rectal: Deferred by Provider
Musculoskeletal: No Clubbing, No Cyanosis and No Edema
Skin: No Rash
Neuro: Nonfocal/grossly intact
Laboratory Results
-
07/27/23 21:10
07/27/23 21:10
Laboratory Results
Lactic Acid 1.2 mmol/L (0.7-2.0) 07/27/23 22:03
Total Bilirubin 1.0 mg/dl (0.2-1.3) 07/27/23 21:10
AST 33 U/L (14-36) 07/27/23 21:10
ALT 25 U/L (0-35) 07/27/23 21:10
Alkaline Phosphatase 128 U/L (38-126) H 07/27/23 21:10
Troponin I < 0.012 ng/ml 07/27/23 22:03
Data Reviewed
-
Lab Data: Labs Reviewed by me
Old Records: Reviewed
Impression/Plan
-
IMPRESSION:
PLAN:
# Acute unresponsiveness strongly suggestive of opiate toxicity/polypharmacy
-Patient moans in response to sternal rubbing, and was sometimes opening eyes previously but not following commands
-Pinpoint pupils with respiratory rate 7 recorded
-CT head shows no acute abnormality
-Salicylates, Tylenol level, alcohol level negative
-UDS pending
-COVID pending
-Check ABG to evaluate for hypercarbia
-Check urinalysis
-Give another dose of Narcan
-Hold all sedating medications
-N.p.o. for now including all oral medications
History of asthma
Dementia
-Continue sertraline
Psychiatric history
-On Depakote
-No history of seizures
History of giant cell arteritis with chronic steroid use
-On Actemra
-Continue prednisone
History of constipation/fecal impaction/stercoral colitis
-Continue bowel regimen
Hypothyroidism
-Continue levothyroxine
Hyperlipidemia
-Continue statin
Essential hypertension
-Continue amlodipine
GERD
-Continue sucralfate, Protonix
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
-Hold baclofen, gabapentin
Chronic ambulatory dysfunction
Osteoporosis
DNR/DNI
DVT prophylaxis�heparin
N.p.o.
[2023-07-27 23:21] LABS: B.E. 2.7 mmol/L; HCO3 28.9 mmol/L (21-28); O2 Saturation % 99.6 % (94-98); PCO2 50 mmHg (32-35); PO2 121 mmHg (83-108); pH 7.37 (7.35-7.45)
[2023-07-27 23:30] VITALS: BP 102/72
[2023-07-27] MEDS: NARCAN 0.400000000000000022 MG IV (23:33)
[2023-07-27 23:58] LABS: Urine Albumin Negative (Neg - Trace); Urine Bilirubin Negative (Negative); Urine Character Clear (Clear); Urine Color Yellow; Urine Glucose Negative (Negative); Urine Ketone Negative (Negative); Urine Leukocyte Negative (Negative); Urine Nitrite Negative (Negative); Urine Occult Blood Negative (Negative); Urine Specific Gravity 1.015 (<1.030); Urine Urobilinogen Negative (Neg - 1+)
[2023-07-28] VITALS (15 sets, daily range): BP systolic 109–152; BP diastolic 55–91
--- NOTE | 2023-07-28 00:22 | EDRN ---
Post-Narcan administration, pt. w/ 2 mm responsive pupils compared to pinpoint nonreactive pupils prior to this medication. Very little change to mental status, pt. continues to respond to sternal rub, and intermittently will follow some commands,
such as will squeeze this RN's hands and will open her eyes fpc when asked, but strength is very weak and pt. immediately falls back to sleep. Airway remains intact, vitals stable, admitting team aware.
[2023-07-28 00:24] LABS: Amphetamines Negative (Negative); Barbiturates Negative (Negative); Benzodiazepines Positive (Negative); Buprenorphine Negative (Negative); Cocaine Negative (Negative); Marijuana Negative (Negative); Methadone Negative (Negative); Methamphetamines Negative (Negative); Opiates Negative (Negative); Phencyclidine Negative (Negative); Tricyclic Antidepressants Negative (Negative)
[2023-07-28 00:42] LABS: Fentanyl, Urine Negative (Negative)
--- NOTE | 2023-07-28 04:35 | EDRN ---
When RN went to turn pt. to change her linens, pt. followed commands for this RN, was able to hold onto side rail. Pt. more alert, opens eyes when asked too, moving all extremities without difficulty, turning herself to her side, told this RN her
name and that she is in the hospital. Admitting team made aware, RN inquired if pt. still requires IMU admit or if it would be appropriate to downgrade to tele. Await response from admitting team.
[2023-07-28 04:38] LABS: % Eosinophils 3.1 % (0-6); % Immature Granulocytes 0.5 % (0-0.5); % Lymphocytes 39.6 % (20.5-51.1); % Monocytes 9.1 % (1.7-9.3); % Neutrophils 46.7 % (42.2-75.2); Absolute Eosinophils 0.1 10^3/uL (0-0.7); Absolute Lymphocytes 1.7 10^3/uL (1.2-3.4); Absolute Monocytes 0.4 10^3/uL (0.1-0.6); Hematocrit 37.1 % (37.0-47.0); Hemoglobin 12.7 g/dL (12.0-16.0); Mean Corp Hgb Conc. 34.2 g/dL (33.0-37.0); Mean Corpuscular Hgb 31.5 pg (27.0-31.0); Mean Corpuscular Volume 92.1 fL (81.0-99.0); Mean Platelet Volume 9.5 fL (7.4-10.4); Nucleated Red Blood Cells % 0 %; Platelet Count 171 10^3/uL (130-400); Red Blood Cell Count 4.03 10^6/uL (4.20-5.40); Red Cell Dist. Width 13.7 % (11.5-14.5); White Blood Cell Count 4.2 10^3/uL (4.8-10.8)
[2023-07-28 04:53] LABS: ALT (SGPT) 24 U/L (0-35); AST (SGOT) 29 U/L (14-36); Albumin 3.2 g/dl (3.5-5.0); Alkaline Phosphatase 115 U/L (38-126); Blood Urea Nitrogen 24 mg/dl (7-17); Carbon Dioxide 29 mmol/L (22-30); Chloride 108 mmol/L (98-107); Estimated Creatinine Clearance 48 ml/min; Glucose 77 mg/dl (70-99); Sodium 142 mmol/L (135-145); Total Bilirubin 1.2 mg/dl (0.2-1.3); eGFR > 60.00
--- NOTE | 2023-07-28 07:51 | W.PN.HOSP.TC ---
Today's Communication/Plan
-
downgrade from IMU to med/surg
consideration for return to [facility]
Assessment / Plan
Assessment / Plan
pt is a 63 year old female
Acute unresponsiveness strongly suggestive of opiate toxicity/polypharmacy--pt tox screen positive for benzodiazepines (not prescribed) and negative for oxycodone (is prescribed)--? med mixup at [facility] vs pt taking others pills? (not sure if she wanders
into others rooms, etc)--pt awake and confused (unknown baseline)--CT head shows no acute abnormality--Salicylates, Tylenol level, alcohol level negative--COVID neg--mildly hypercarbic on ABG but not concerning--UA clear--Hold all sedating
medications--down grade from IMU--start diet
History of asthma--cont albuterol
Dementia/Psychiatric history--On Depakote--Continue sertraline
History of giant cell arteritis with chronic steroid use--On Actemra--Continue prednisone
History of constipation/fecal impaction/stercoral colitis--Continue bowel regimen
Hypothyroidism--Continue levothyroxine--check TSH
Hyperlipidemia--Continue statin
Essential hypertension--Continue amlodipine
GERD--Continue sucralfate, Protonix
History of thoracic vertebral compression fractures secondary to chronic steroid--Hold baclofen, gabapentin
Chronic ambulatory dysfunction--PT/OT
Osteoporosis
Code status --DNR/DNI
DVT prophylaxis�heparin
Anticipated Discharge: Within 24 hours
Subjective/Interval History
-
Date of Service: July 28, 2023
pt very confused--asking where 'Val' is--despite multiple redirect attemps
Objective Data
-
Labs:
Laboratory Results
07/27/23 07/27/23 07/28/23
21:10 23:12 04:31
WBC 5.6 4.2 L
Hgb 13.9 12.7
Hct 40.7 37.1
Plt Count 194 171
HCO3 28.9 H
Sodium 140 142
Potassium 3.6 3.0 L
Chloride 103 108 H
Carbon Dioxide 33 H 29
BUN 26 H 24 H
Creatinine 0.5 L 0.4 L
Glucose 94 77
Calcium 9.2 9.0
Total Bilirubin 1.0 1.2
AST 33 29
ALT 25 24
Alkaline Phosphatase 128 H 115
Vital Signs:
max temp for 24 hours
07/27/23
20:50
Temp 98.3 F
Vital Signs
Temp Pulse Resp BP Pulse Ox
98.3 F 85 19 125/83 96
07/27/23 20:50 07/28/23 07:15 07/28/23 07:15 07/28/23 06:00 07/28/23 07:15
Review of Systems
-
Unable to obtain full review of systems at this time due to: Dementia
Physical Exam
-
General: Other (elderly frail female confused in NAD)
HEENT: Normocephalic and Atraumatic
Respiratory: Clear to Auscultation; Negative Wheezes, Rhonchi or Crackles
Cardiac: Regular Rhythm and S1/S2; Negative Murmur
GI: Soft, Nontender, Nondistended and Normal Bowel Sounds
Musculoskeletal: No Clubbing, No Cyanosis and No Edema
Neuro: Awake and Alert; Negative Oriented
Psych: Confused and Apparent Dementia
[2023-07-28] MEDS: KCL 270 MEQ IV (07:58)
[2023-07-28] MEDS: HEPARIN 5000 UNITS SC (08:00)
--- NOTE | 2023-07-28 13:12 | CM ---
Patient from [facility] with Hx dementia with Dx Acute unresponsiveness strongly suggestive of opiate toxicity/polypharmacy. Per nurse notes; patient alert, responding verbally,
Spoke with Quinton Gallegos [facility]; she was made aware that patient had decreased LOC with positive tox screen for benzos. The patient is A/O x2 and confused at baseline. They are able to accept the patient back today. The for report
[phone], fax [phone].
Spoke with patient's son James; he agrees with the patient returning to [facility] today by ambulance.
Plan return to [facility] today by ambulance.
--- NOTE | 2023-07-28 18:57 | W.DCSUMMARY ---
Discharge Summary
Discharge Data
Date of Admission: 07/27/23
Date of Discharge: 07/28/23
-
Pending Results: No
Hospital Course
Primary care physician : Romeo Dacosta
Principal Discharge diagnosis : Acute unresponsiveness strongly suggestive of opiate toxicity/polypharmacy
Chronic Discharge diagnosis : History of asthma, dementia with psychiatric history, history of giant cell arteritis with chronic steroid use, history of constipation/fecal impaction/stercoral colitis, hypothyroidism, hyperlipidemia, essential
hypertension, gastroesophageal reflux disease, history of thoracic vertebral compression fractures, chronic ambulatory dysfunction, osteoporosis
Hospital Course : Patient was an 83-year-old female with chronic medical issues who presented from the long-term with a change in mental status. Patient's grandson provided the history. Patient was very lethargic after her nap. She went to
sleep around 2 PM vital signs were stable. Patient's roommate was keeping her up all night and they thought she was tired. Patient's grandson saw her at 7:30 in the evening and did a sternal rub and the patient would only wake up slightly. He
felt as if she were having trouble breathing so she was transmitted to the hospital. According to the grandson, patient has not been requiring her oxycodone that has been ordered. Her grandson noted pinpoint pupils and the patient received Narcan
via EMS without improvement. Patient was admitted.
Problem #1: Acute unresponsiveness strongly suggestive of opiate toxicity/polypharmacy. Patient has oxycodone on her medication list from the long-term. This was thought to be opioid toxicity. Narcan was given without improvement. Urine tox
screen infection showed positivity for benzodiazepines and negativity for oxycodone/opiates. It is likely there was a medication mixup at the long-term. This morning, patient is awake, confused, asking for 'Val' and is agitated because she
is not in her normal room. She is stable to return back to her long-term at this time.
Problem #2: All other medical issues. These include History of asthma, dementia with psychiatric history, history of giant cell arteritis with chronic steroid use, history of constipation/fecal impaction/stercoral colitis, hypothyroidism,
hyperlipidemia, essential hypertension, gastroesophageal reflux disease, history of thoracic vertebral compression fractures, chronic ambulatory dysfunction, osteoporosis. These medical issues were stable during her hospitalization. Medications
were continued as able.
Patient tolerated her diet. She is stable for discharge back to her long-term. If there are any questions regarding this dictation or her hospital stay, please not hesitate to call. Our office number is [phone].
Important imaging findings :
HEAD CT SCAN IMPRESSION:
No acute intracranial abnormalities.
Findings compatible with diffuse cortical atrophy with nonspecific white matter changes as described above.
Discharge Plan
-
Patient Disposition: Longterm/SNF
Discharge Diagnosis/Procedures: Acute unresponsiveness suggestive of opioid toxicity/polypharmacy, history of asthma, dementia with psychiatric history, history of giant cell arteritis on chronic steroid use, constipation/fecal impaction/stercoral
colitis history, hypothyroidism, hyperlipidemia, essential hypertension, gastroesophageal reflux disease, history of thoracic vertebral compression fractures secondary to chronic steroid use, chronic ambulatory dysfunction, osteoporosis
Condition: Fair
Diet: As tolerated and Regular
Activity: As tolerated
Driving Restrictions: No driving
Bathing Restrictions: None
Referrals:
Romeo Dacosta I., DO [Family Provider] - in less than 1 week
Prescriptions:
Continued
cetirizine 10 mg Tablet
10 mg PO DAILY
sucralfate 1 gram Tablet
1 g PO ACHS
amlodipine 5 mg Tablet
5 mg PO DAILY
Rx Instructions:
HOLD for SBP <110 DBP <60 HR <60
pravastatin 10 mg Tablet
10 mg PO HS
magnesium hydroxide [Milk of Magnesia] 400 mg/5 mL Suspension
30 ml PO [id number] PRN (Reason: if no by day)
prednisone 1 mg Tablet
8 mg PO UD
Rx Instructions:
07/23-07/29=8mg daily, 07/30-08/05=7mg daily, 08/06-08/19=6mg daily, 08/20-09/02=5mg daily, 09/03-09/16=4mg daily, 09/17-09/30=3mg daily, 10/01-10/14=2mg daily, 10/15-10/28=1mg daily
bisacodyl 10 mg Suppository
10 mg NE DAILYPRN PRN (Reason: if no bm aftr mom)
pantoprazole 40 mg Tablet,Delayed Release (Dr/Ec)
40 mg PO DAILY
albuterol sulfate 90 mcg/actuation Hfa Aerosol Inhaler
2 puff INHALATION R Q6HPRN PRN (Reason: shortness of breath)
sertraline 50 mg Tablet
50 mg PO HS
Actemra 162 mg/0.9 mL Syringe
162 mg SC WE
divalproex [Depakote Sprinkles] 125 mg Capsule, Delayed Rel Sprinkle
125 mg PO TID
sennosides-docusate sodium [Senna-S] 8.6-50 mg Tablet
1 tab-cap PO DAILY@1400
polyethylene glycol 3350 [HealthyLax] 17 gram Powder In Packet
17 g PO DAILYPRN PRN (Reason: constipation) Qty: 0 0RF
gabapentin 100 mg Capsule
200 mg PO BID Qty: 0 0RF
levothyroxine 125 mcg Tablet
125 mcg PO DAILY
calcium carbonate-vitamin D3 [Calcium 600 + D(3)] 600 mg-10 mcg (400 unit) Tablet
1 tab PO DAILY
baclofen 5 mg Tablet
5 mg PO BID
lidocaine 4 % adhesive patch,medicated
1 patch topical DAILY
acetaminophen [Tylenol] 325 mg tablet
650 mg PO Q6HPRN PRN (Reason: mild pain/temp>100.4)
Discontinued
oxycodone 5 mg tablet
5 mg PO Q4HPRN PRN (Reason: moderate to severe pain)
Discharge Orders:
Discharge Patient (As Directed); Ordered 07/28/23
Ordered By: Chelly Langston
Discharge Date and Time
Print Language: COMORAN
== END 2023-07-28 16:00 ==
LOC: ED 23:06
PROVIDERS: Clinical Nurse Specialist Family Health; ADMITTING PHYSICIAN Hospitalist; ATTENDING PHYSICIAN Internal Medicine; EMERGENCY PHYSICIAN Emergency Medicine; FAMILY PHYSICIAN Internal Medicine
DX: R41.82 Altered mental status, unspecified (principal); R53.83 Other fatigue; J45.909 Unspecified asthma, uncomplicated; F03.90 Unspecified dementia, unspecified severity, without behavioral disturbance, psychotic disturbance, mood disturbance, and anxiety; M81.0 Age-related osteoporosis without current pathological fracture; E03.9 Hypothyroidism, unspecified; E78.5 Hyperlipidemia, unspecified; K21.9 Gastro-esophageal reflux disease without esophagitis; I10 Essential (primary) hypertension; Z66 Do not resuscitate; Z87.891 Personal history of nicotine dependence; Z88.0 Allergy status to penicillin; Z79.890 Hormone replacement therapy; Z79.52 Long term (current) use of systemic steroids; Z11.52 Encounter for screening for COVID-19
CPT/HCPCS: 51701; 70450; 80053; 80143; 80179; 80306; 80307; 81003; 82077; 82805; 82962; 83605; 84484; 85025; 87040; 87811; 93005; 94760; 96360; 99285; G0378

== ENCOUNTER → 2024-03-23 18:48 | Outpatient (REF) | payer MEDICARE, SELFPAY | LOC: LAB 18:48 | PROVIDERS: ATTENDING PHYSICIAN Student in an Organized Health Care Education/Training Program | DX: R05.1 Acute cough (principal) | CPT/HCPCS: 87502 ==

== ENCOUNTER → 2024-03-24 09:21 | Outpatient (REF) | payer MEDICARE, SELFPAY ==
[2024-03-24 10:19] LABS: % Basophils 0.4 % (0-2); % Eosinophils 2.2 % (0-6); % Immature Granulocytes 0.4 % (0-0.5); % Lymphocytes 19.3 % (20.5-51.1); % Monocytes 4.5 % (1.7-9.3); % Neutrophils 73.2 % (42.2-75.2); Absolute Eosinophils 0.2 10^3/uL (0-0.7); Absolute Lymphocytes 1.8 10^3/uL (1.2-3.4); Absolute Monocytes 0.4 10^3/uL (0.1-0.6); Absolute Neutrophils 6.8 10^3/uL (1.4-6.5); Hematocrit 37.9 % (37.0-47.0); Hemoglobin 12.4 g/dL (12.0-16.0); Mean Corp Hgb Conc. 32.7 g/dL (33.0-37.0); Mean Corpuscular Hgb 30.2 pg (27.0-31.0); Mean Corpuscular Volume 92.2 fL (81.0-99.0); Mean Platelet Volume 9.4 fL (7.4-10.4); Nucleated Red Blood Cells % 0 %; Platelet Count 150 10^3/uL (130-400); Red Blood Cell Count 4.11 10^6/uL (4.20-5.40); Red Cell Dist. Width 12.8 % (11.5-14.5); White Blood Cell Count 9.3 10^3/uL (4.8-10.8)
[2024-03-24 10:41] LABS: Blood Urea Nitrogen 16 mg/dl (7-17); Calcium 8.9 mg/dl (8.4-10.2); Carbon Dioxide 33 mmol/L (22-30); Chloride 96 mmol/L (98-107); Glucose 81 mg/dl (70-99); Potassium 4.1 mmol/L (3.5-5.1); Sodium 135 mmol/L (135-145); eGFR > 60.00
== END ==
LOC: OLABN 09:21
PROVIDERS: ATTENDING PHYSICIAN Student in an Organized Health Care Education/Training Program
DX: R06.02 Shortness of breath (principal); R05.9 Cough, unspecified
CPT/HCPCS: 36415; 80048; 85025

== ENCOUNTER → 2024-06-11 10:50 | Outpatient (REF) | payer MEDICARE, SELFPAY ==
[2024-06-11 12:26] LABS: Depakane 35.7 ug/ml (50.0-120.0)
== END ==
LOC: OLABN 10:50
PROVIDERS: ATTENDING PHYSICIAN Student in an Organized Health Care Education/Training Program
DX: F32.89 Other specified depressive episodes (principal)
CPT/HCPCS: 36415; 80164

== ENCOUNTER 2024-06-20 12:06 | Emergency (ER) | payer MEDICARE, OTHER, SELFPAY ==
[2024-06-20] VITALS (9 sets, daily range): BP systolic 133–157; BP diastolic 68–78
[2024-06-20 12:17] LABS: Glucose - Point of Care 97 mg/dl (70-99)
[2024-06-20 12:31] LABS: % Basophils 1.1 % (0-2); % Eosinophils 5.6 % (0-6); % Immature Granulocytes 0.3 % (0-0.5); % Lymphocytes 45.9 % (20.5-51.1); % Monocytes 8.2 % (1.7-9.3); % Neutrophils 38.9 % (42.2-75.2); Absolute Eosinophils 0.2 10^3/uL (0-0.7); Absolute Lymphocytes 1.6 10^3/uL (1.2-3.4); Absolute Monocytes 0.3 10^3/uL (0.1-0.6); Absolute Neutrophils 1.4 10^3/uL (1.4-6.5); Hematocrit 39.1 % (37.0-47.0); Hemoglobin 13.3 g/dL (12.0-16.0); Mean Corpuscular Volume 91.1 fL (81.0-99.0); Mean Platelet Volume 9.2 fL (7.4-10.4); Nucleated Red Blood Cells % 0 %; Platelet Count 160 10^3/uL (130-400); Red Blood Cell Count 4.29 10^6/uL (4.20-5.40); Red Cell Dist. Width 14.9 % (11.5-14.5); White Blood Cell Count 3.6 10^3/uL (4.8-10.8)
[2024-06-20 12:44] LABS: ALT (SGPT) 150 U/L (0-35); AST (SGOT) 99 U/L (14-36); Alkaline Phosphatase 49 U/L (38-126); Blood Urea Nitrogen 18 mg/dl (7-17); Calcium 9.7 mg/dl (8.4-10.2); Carbon Dioxide 31 mmol/L (22-30); Chloride 101 mmol/L (98-107); Glucose 100 mg/dl (70-99); Potassium 4.2 mmol/L (3.5-5.1); Sodium 138 mmol/L (135-145); Total Bilirubin 1.1 mg/dl (0.2-1.3); Total Protein 7.4 g/dl (6.3-8.2); eGFR > 60.00
[2024-06-20 15:00] LABS: Urine Albumin Negative (Neg - Trace); Urine Bilirubin Negative (Negative); Urine Character Clear (Clear); Urine Color Yellow; Urine Glucose Negative (Negative); Urine Ketone Negative (Negative); Urine Leukocyte Negative (Negative); Urine Nitrite Negative (Negative); Urine Occult Blood Negative (Negative); Urine Urobilinogen Negative (Neg - 1+)
--- NOTE | 2024-06-20 15:08 | ED.GENMED ---
History of Present Illness
General
Chief Complaint: Fainting Sensation
Source: patient and records
Exam Limitations: none
Time Seen by Provider: 06/20/24 13:22
Nursing documentation reviewed up to this point in time: agreed with
History of Present Illness
History of Present Illness:
84-year-old female for EMS after syncopal event felt dizzy nearly passed out, has a mild headache, no chest pain or shortness of breath no fever or chills no dysuria or frequency no abdominal pain,
My evaluation cooperative no acute distress open her eyes, follow commands, states she had a mild headache,
Further history patient states that she was on the toilet when this happened could not have a bowel movement
Past History
Past History
ED Past Medical History: Asthma, Hypothyroidism and Other (Dementia, Constipation, Bowel obstruction, Spinal compression fractures, Osteoporosis)
ED Past Surgical History: None
Social History
Tobacco: Former smoker
Alcohol: None
Drug: None
Personal:
Living: fdc ([facility])
Employment: Not employed
Review of Systems
Review of Systems
All Other Systems: Not applicable
Constitutional: Reports fatigue; Denies fever or chills
EENT: Reports no symptoms
Respiratory: Reports no symptoms
Cardiac: Reports syncope; Denies chest pain, diaphoresis or palpitations
ABD/GI: Denies abdominal pain, nausea or diarrhea
: Reports no symptoms
Musculoskeletal: Reports no symptoms
Skin: Reports no symptoms
Neurological: Reports dizzy, headache and weakness
Endocrine: Reports no symptoms
Hematologic/Lymphatic: Reports no symptoms
Phy Exam
Physical Exam
Physical Exam:
Physical Exam
General: no apparent distress, not acutely ill
Neck: Lips are slightly dry no tongue bite
Heart: Regular
Lungs: no acute respiratory distress. clear bilaterally
Abdomen: Nontender
Neuro: alert and oriented. no focal neurological deficits
Skin: no rash
Psychiatric: well kept. interactive and cooperative
Extremities: no edema. No calf pain
Course
Orders/Labs/Results
Orders:
Orders
06/20/24 12:14
Electrocardiogram (*1) Urgent
Reason for Study: Chest Pain
EKG- Treatment ONCE
06/20/24 12:17
Complete Blood Count/With Diff Urgent
Comprehensive Metabolic Panel Urgent
06/20/24 14:01
CT Head W/o Iv Contrast Urgent
Comment:
Reason For Exam: headache dizzy
Straight cath- Treatment ONCE
06/20/24 14:18
Urinalysis Reflex To Culture Urgent
Date Specimen was Collected: 06/20/24
Time Specimen was Collected: 14:06
06/20/24 14:59
Add On- LAB Urgent
Tests Added?: depakene
06/20/24 15:07
0.9% Sodium Chloride 1000 ml [Nss] 1,000 ml IV BOLUS
06/20/24 15:20
Magnesium Hydroxide [Milk of Magnesia] 30 ml PO NOW STA
06/20/24 15:41
Depakane Routine
Comment: CANNOT ADD ON, NEED TO DRAW ON PLAIN RED TUBE
Abnormal Lab Results
06/20/24 06/20/24
12:17 15:41
WBC 3.6 L 10^3/uL
(4.8-10.8)
RDW 14.9 H %
(11.5-14.5)
Neutrophils % 38.9 L %
(42.2-75.2)
Carbon Dioxide 31 H mmol/L
(22-30)
BUN 18 H mg/dl
(7-17)
Glucose 100 H mg/dl
(70-99)
AST 99 H U/L
(14-36)
ALT 150 H U/L
(0-35)
Valproic Acid 34.9 L ug/ml
(50.0-120.0)
06/20/24 12:17
06/20/24 12:17
Vital Signs
Initial and Last Documented VS:
Initial Vital Signs
Temp Pulse Resp BP Pulse Ox
98.2 F 61 20 144/78 94
06/20/24 12:08 06/20/24 12:08 06/20/24 12:08 06/20/24 12:08 06/20/24 12:08
Last Documented Vital Signs
Temp Pulse Resp BP Pulse Ox
98.2 F 53 12 142/76 94
06/20/24 12:08 06/20/24 17:45 06/20/24 17:45 06/20/24 18:00 06/20/24 18:00
MDM/Problems Addressed
Differential Diagnosis Includes:
Vasovagal arrhythmia electrolyte abnormality anemia UTI doubt intracerebral hemorrhage
MDM/Problems Addressed:
Syncope weakness
*Radiology
Radiology exam reviewed: radiology read reviewed
*Pulse Oximetry
Patient hypoxic: no
*EKG
Interpreted by ED Provider?: Yes
Interpretation: abnormal
Comparison EKG: no comparison EKG present
Heart Rate: 78
Rate: normal
Proctor: normal axis
Ischemia: non-specific ST changes
*Unit [employer] Manager Interpretation
Rate: normal
Interpretation: normal
Heart Rate: 78
Rhythm: sinus
*Critical Care Note
Total Time (30-74mins, 75-104mins- exclusive of procedures): Not Applicable
Update Note
Update Note:
Update labs noted patient looks well will hydrate her give her stool softener
ED Attending Note
-
Portions of this chart may have been created with voice recognition software.� Occasional wrong word or��sound alike� substitutions may have occurred due to the inherent limitations of voice recognition software.
Discharge Plan
Departure
Patient Disposition: Home (Routine Discharge)
Date of Disposition: 06/20/24
Time of Disposition: 15:20
Patient with high blood pressure during this ER visit?: No
Condition: Good
Discharge Problem:
Syncope and collapse, Constipation
Instructions: Syncope (Fainting) (DC), Constipation in adults - ED discharge instructions
Prescriptions:
New
polyethylene glycol 3350 [ClearLax] 17 gram/dose powder
4 g PO DAILY PRN (Reason: Constipation) Qty: 238 0RF
No Action
cetirizine 10 mg Tablet
10 mg PO DAILY
sucralfate 1 gram Tablet
1 g PO ACHS
amlodipine 5 mg Tablet
5 mg PO DAILY
Rx Instructions:
HOLD for SBP <110 DBP <60 HR <60
pravastatin 10 mg Tablet
10 mg PO HS
magnesium hydroxide [Milk of Magnesia] 400 mg/5 mL Suspension
30 ml PO [id number] PRN (Reason: if no by day)
prednisone 1 mg Tablet
8 mg PO UD
Rx Instructions:
07/23-07/29=8mg daily, 07/30-08/05=7mg daily, 08/06-08/19=6mg daily, 08/20-09/02=5mg daily, 09/03-09/16=4mg daily, 09/17-09/30=3mg daily, 10/01-10/14=2mg daily, 10/15-10/28=1mg daily
bisacodyl 10 mg Suppository
10 mg DE DAILYPRN PRN (Reason: if no bm aftr mom)
pantoprazole 40 mg Tablet,Delayed Release (Dr/Ec)
40 mg PO DAILY
albuterol sulfate 90 mcg/actuation Hfa Aerosol Inhaler
2 puff INHALATION R Q6HPRN PRN (Reason: shortness of breath)
sertraline 50 mg Tablet
50 mg PO HS
Actemra 162 mg/0.9 mL Syringe
162 mg SC WE
divalproex [Depakote Sprinkles] 125 mg Capsule, Delayed Rel Sprinkle
125 mg PO TID
sennosides-docusate sodium [Senna-S] 8.6-50 mg Tablet
1 tab-cap PO DAILY@1400
polyethylene glycol 3350 [HealthyLax] 17 gram Powder In Packet
17 g PO DAILYPRN PRN (Reason: constipation) Qty: 0 0RF
gabapentin 100 mg Capsule
200 mg PO BID Qty: 0 0RF
levothyroxine 125 mcg Tablet
125 mcg PO DAILY
calcium carbonate-vitamin D3 [Calcium 600 + D(3)] 600 mg-10 mcg (400 unit) Tablet
1 tab PO DAILY
baclofen 5 mg Tablet
5 mg PO BID
lidocaine 4 % adhesive patch,medicated
1 patch topical DAILY
acetaminophen [Tylenol] 325 mg tablet
650 mg PO Q6HPRN PRN (Reason: mild pain/temp>100.4)
Referrals:
Kobe Shelton DO [Family Provider] -
Interventions
Interventions:
*Risk Screen - Suicide Last Done: 06/20/24 12:08
*General Assessment Last Done: 06/20/24 12:08
*Neglect/Abuse Screening Last Done: 06/20/24 12:08
*ED- Fall Risk Assessment Last Done: 06/20/24 18:47
*ED COVID-19 Vaccine History Last Done: 06/20/24 18:47
*Nursing Disposition Last Done: 06/20/24 18:47
ED- Cardiac Assessment Last Done: 06/20/24 13:30
ED- Neurological Assessment Last Done: 06/20/24 13:30
Discharge Date and Time
Discharge Date/Time: 06/20/24 18:48
Print Language: KOREAN
[2024-06-20] MEDS: NSS 1000 IV (15:42)
[2024-06-20] MEDS: MILK OF MAGNESIA 30 ML PO (15:46)
[2024-06-20 16:31] LABS: Depakane 34.9 ug/ml (50.0-120.0)
== END 2024-06-20 18:48 | disposition home or self-care (01) ==
LOC: EMR 12:06
PROVIDERS: EMERGENCY PHYSICIAN Emergency Medicine; FAMILY PHYSICIAN Student in an Organized Health Care Education/Training Program
DX: R55 Syncope and collapse (principal); K59.00 Constipation, unspecified; E03.9 Hypothyroidism, unspecified; F03.90 Unspecified dementia, unspecified severity, without behavioral disturbance, psychotic disturbance, mood disturbance, and anxiety; J45.909 Unspecified asthma, uncomplicated; Z87.891 Personal history of nicotine dependence
CPT/HCPCS: 99284; 96360; 70450; 80053; 80164; 81003; 82962; 85025; 93005

== ENCOUNTER 2024-08-04 13:12 | Emergency (ER) | payer MEDICARE, OTHER, SELFPAY ==
[2024-08-04] VITALS (7 sets, daily range): BP systolic 124–159; BP diastolic 62–71
[2024-08-04 13:44] LABS: % Basophils 1.4 % (0-2); % Immature Granulocytes 0.5 % (0-0.5); % Lymphocytes 43.4 % (20.5-51.1); % Monocytes 9.2 % (1.7-9.3); % Neutrophils 39.5 % (42.2-75.2); Absolute Basophils 0.1 10^3/uL (0-0.2); Absolute Eosinophils 0.2 10^3/uL (0-0.7); Absolute Lymphocytes 1.6 10^3/uL (1.2-3.4); Absolute Monocytes 0.3 10^3/uL (0.1-0.6); Absolute Neutrophils 1.5 10^3/uL (1.4-6.5); Hematocrit 36.4 % (37.0-47.0); Hemoglobin 12.6 g/dL (12.0-16.0); Mean Corp Hgb Conc. 34.6 g/dL (33.0-37.0); Mean Corpuscular Hgb 32.2 pg (27.0-31.0); Mean Corpuscular Volume 93.1 fL (81.0-99.0); Mean Platelet Volume 9.1 fL (7.4-10.4); Nucleated Red Blood Cells % 0 %; Platelet Count 157 10^3/uL (130-400); Red Blood Cell Count 3.91 10^6/uL (4.20-5.40); Red Cell Dist. Width 14.7 % (11.5-14.5); White Blood Cell Count 3.7 10^3/uL (4.8-10.8)
[2024-08-04 14:27] LABS: Blood Urea Nitrogen 17 mg/dl (7-17); Calcium 9.2 mg/dl (8.4-10.2); Carbon Dioxide 29 mmol/L (22-30); Chloride 102 mmol/L (98-107); Estimated Creatinine Clearance 40 ml/min; Glucose 67 mg/dl (70-99); Sodium 138 mmol/L (135-145); eGFR > 60.00
--- NOTE | 2024-08-04 15:28 | ED.GENMED ---
History of Present Illness
General
Chief Complaint: Fall
Source: patient
Exam Limitations: none
Time Seen by Provider: 08/04/24 15:24
History of Present Illness
History of Present Illness:
See MDM
Past History
Past History
ED Past Medical History: Asthma, Hypothyroidism and Other (Dementia, Constipation, Bowel obstruction, Spinal compression fractures, Osteoporosis)
ED Past Surgical History: None
Social History
Tobacco: Former smoker
Alcohol: None
Drug: None
Personal:
Living: half-way ([facility])
Employment: Not employed
Phy Exam
Physical Exam
Physical Exam:
See MDM
Course
Orders/Labs/Results
Orders:
Orders
08/04/24 13:15
ECG [Electrocardiogram (*1)] Urgent
Reason for Study: Syncope
Other Reason for Exam: unwitnessed fall
08/04/24 13:16
EKG- Treatment ONCE
08/04/24 13:32
BMP [Basic Metabolic Panel] Urgent
Complete Blood Count/With Diff Urgent
08/04/24 14:33
CT Cervical Spine W/o Iv Contr Urgent
Comment:
Reason For Exam: trauma
CT Head W/o Iv Contrast Urgent
Comment:
Reason For Exam: Trauma
08/04/24 15:28
CR Chest Portable - 1 View Urgent
Comment:
Reason For Exam: SOB
Reason Study Needs to be Portable: Patient Unstable
Abnormal Lab Results
08/04/24
13:32
WBC 3.7 L 10^3/uL
(4.8-10.8)
RBC 3.91 L 10^6/uL
(4.20-5.40)
Hct 36.4 L %
(37.0-47.0)
MCH 32.2 H pg
(27.0-31.0)
RDW 14.7 H %
(11.5-14.5)
Neutrophils % 39.5 L %
(42.2-75.2)
Glucose 67 L mg/dl
(70-99)
08/04/24 13:32
08/04/24 13:32
Vital Signs
Initial and Last Documented VS:
Initial Vital Signs
Temp Pulse Resp BP Pulse Ox
98.6 F 74 16 155/71 93
08/04/24 13:16 08/04/24 13:16 08/04/24 13:16 08/04/24 13:16 08/04/24 13:16
Last Documented Vital Signs
Temp Pulse Resp BP Pulse Ox
98.6 F 52 15 159/65 97
08/04/24 13:16 08/04/24 18:30 08/04/24 18:30 08/04/24 18:00 08/04/24 18:30
MDM/Problems Addressed
Differential Diagnosis Includes:
HPI and MDM Narrative:
84-year-old female presenting for evaluation of unwitnessed fall. Cervical collar was placed by EMS for neck pain complaint. Patient states she does not remember falling. She does not complain of a headache. She is unsure if she hit her head.
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 She states she has difficulty using the walker. Because of this, she states she was walking without the
walker. On arrival, oxygen level was about 92% on room air. Patient placed on supplemental oxygen until chest x-ray could be ordered. She does complain of a mild cough. Patient is afebrile.
Given the unwitnessed fall, EKG and blood work was performed. Will obtain CT head and CT neck. Given the mild cough, will obtain chest x-ray
Physical exam
General: Well appearing and non-toxic
HEENT: protecting airway. Moist mucous membranes. Mild cerumen buildup bilaterally but TMs clear
Neck: Cervical collar in place. No stridor or edema noted
CV: No evidence of cyanosis. Regular rate and rhythm
Resp: No accessory muscle use. Lungs clear
Abd: Non-distended
Extremities: No deformities. No hip tenderness.
Neuro: alert
Psych: Normal affect
Skin: Intact
Problems Addressed including Acute and Chronic Conditions affecting care:
1. Unwitnessed fall
Acuity: acute
Prognosis: stable
Details: Will obtain CT head and neck. Blood work without clinically relevant abnormalities
2. Mild cough
Acuity: acute
Prognosis: stable
Details: Will obtain chest x-ray
Updates
CT head and neck negative. Son at bedside stating he feels comfortable taking her home
Differential Diagnosis (but not limited to): Intracranial hemorrhage, mechanical fall, metabolic encephalopathy
Testing considered: Urinalysis
Drug therapy (if applicable): OTC meds, please see d/c instruction regarding Rx drugs
Amount and/or Complexity of Data Reviewed
Clinical info obtained from: Patient
External data reviewed: N/A
Labs I independently reviewed (but not limited to): Sodium level normal
Radiology: x-ray independently reviewed: Chest x-ray without pneumonia or fluid
Pulse Ox: not hypoxic
EKG independently reviewed: Sinus rhythm, normal axis, no STEMI
Jewel Bearing [employer]inder: N/A
Critical Care: N/A
Risk of Complication:
Social Determinants of health: Good social support
Discussed with other providers: N/A
Escalation of Care includes Admit/Obs: After being observed in the Emergency Department, pt stable for discharge.
Occasional wrong word or 'sound a like' substitutions may have occurred due to the inherent limitations of voice recognition software. Read the chart carefully and recognize, using context, where substitutions have occurred.
*Pulse Oximetry
SaO2: 92
Oxygen Mode of Delivery: Room air
Patient hypoxic: no
*Critical Care Note
Total Time (30-74mins, 75-104mins- exclusive of procedures): Not Applicable
ED Attending Note
-
Portions of this chart may have been created with voice recognition software.� Occasional wrong word or��sound alike� substitutions may have occurred due to the inherent limitations of voice recognition software.
Discharge Plan
Departure
Patient Disposition: Home (Routine Discharge)
Date of Disposition: 08/04/24
Time of Disposition: 19:01
Patient with high blood pressure during this ER visit?: Yes
Discharge Problem:
Fall
Instructions: Preventing falls in adults, BLOOD PRESSURE
Prescriptions:
No Action
cetirizine 10 mg Tablet
10 mg PO DAILY
sucralfate 1 gram Tablet
1 g PO ACHS
amlodipine 5 mg Tablet
5 mg PO DAILY
Rx Instructions:
HOLD for SBP <110 DBP <60 HR <60
pravastatin 10 mg Tablet
10 mg PO HS
magnesium hydroxide [Milk of Magnesia] 400 mg/5 mL Suspension
30 ml PO [id number] PRN (Reason: if no by day)
prednisone 1 mg Tablet
8 mg PO UD
Rx Instructions:
07/23-07/29=8mg daily, 07/30-08/05=7mg daily, 08/06-08/19=6mg daily, 08/20-09/02=5mg daily, 09/03-09/16=4mg daily, 09/17-09/30=3mg daily, 10/01-10/14=2mg daily, 10/15-10/28=1mg daily
bisacodyl 10 mg Suppository
10 mg IA DAILYPRN PRN (Reason: if no bm aftr mom)
pantoprazole 40 mg Tablet,Delayed Release (Dr/Ec)
40 mg PO DAILY
albuterol sulfate 90 mcg/actuation Hfa Aerosol Inhaler
2 puff INHALATION R Q6HPRN PRN (Reason: shortness of breath)
sertraline 50 mg Tablet
50 mg PO HS
Actemra 162 mg/0.9 mL Syringe
162 mg SC WE
divalproex [Depakote Sprinkles] 125 mg Capsule, Delayed Rel Sprinkle
125 mg PO TID
sennosides-docusate sodium [Senna-S] 8.6-50 mg Tablet
1 tab-cap PO DAILY@1400
polyethylene glycol 3350 [HealthyLax] 17 gram Powder In Packet
17 g PO DAILYPRN PRN (Reason: constipation) Qty: 0 0RF
gabapentin 100 mg Capsule
200 mg PO BID Qty: 0 0RF
levothyroxine 125 mcg Tablet
125 mcg PO DAILY
calcium carbonate-vitamin D3 [Calcium 600 + D(3)] 600 mg-10 mcg (400 unit) Tablet
1 tab PO DAILY
baclofen 5 mg Tablet
5 mg PO BID
lidocaine 4 % adhesive patch,medicated
1 patch topical DAILY
acetaminophen [Tylenol] 325 mg tablet
650 mg PO Q6HPRN PRN (Reason: mild pain/temp>100.4)
polyethylene glycol 3350 [ClearLax] 17 gram/dose powder
4 g PO DAILY PRN (Reason: Constipation) Qty: 238 0RF
Referrals:
Kobe Shelton DO [Family Provider, Family Practice]
Activity Restrictions/Additional Instructions:
Please return for any worsening symptoms.
You may return at any time if you have further concerns.
Please follow up with your doctor at the first available appointment, preferably this week.
Thank you for choosing [facility].
Interventions
Interventions:
*Risk Screen - Suicide Last Done: 08/04/24 13:22
*General Assessment Last Done: 08/04/24 13:22
*Neglect/Abuse Screening Last Done: 08/04/24 13:22
*ED- Fall Risk Assessment Last Done: 08/04/24 13:22
*ED COVID-19 Vaccine History Last Done: 08/04/24 16:06
ED-Musculoskeletal Assessment Last Done: 08/04/24 13:53
ED- Neurological Assessment Last Done: 08/04/24 13:53
ED-Skin Assessment Last Done: 08/04/24 13:53
Discharge Date and Time
Print Language: HEBREW
== END 2024-08-04 19:24 ==
LOC: EMR 13:12
PROVIDERS: Emergency Medicine; EMERGENCY PHYSICIAN Student in an Organized Health Care Education/Training Program; FAMILY PHYSICIAN Student in an Organized Health Care Education/Training Program
DX: M54.2 Cervicalgia (principal); W19.XXXA Unspecified fall, initial encounter; R05.9 Cough, unspecified; E03.9 Hypothyroidism, unspecified; F03.90 Unspecified dementia, unspecified severity, without behavioral disturbance, psychotic disturbance, mood disturbance, and anxiety; J45.909 Unspecified asthma, uncomplicated; Z87.891 Personal history of nicotine dependence
CPT/HCPCS: 99284; 70450; 71045; 72125; 80048; 85025; 93005

== ENCOUNTER 2024-10-24 20:24 | Inpatient (IN) | payer MEDICARE, OTHER, SELFPAY ==
[2024-10-24] VITALS (9 sets, daily range): BP systolic 101–152; BP diastolic 60–76; BMI 20.9
[2024-10-24 15:38] LABS: Glucose - Point of Care 82 mg/dl (70-99)
[2024-10-24 15:55] LABS: Hematocrit 35.7 % (37.0-47.0); Hemoglobin 12.2 g/dL (12.0-16.0); Mean Corp Hgb Conc. 34.2 g/dL (33.0-37.0); Mean Corpuscular Volume 93.7 fL (81.0-99.0); Nucleated Red Blood Cells % 0 %; Platelet Count 179 10^3/uL (130-400); Red Cell Dist. Width 13.4 % (11.5-14.5)
[2024-10-24 15:56] LABS: Urine Character Clear (Clear)
--- NOTE | 2024-10-24 16:13 | ED.GENMED ---
History of Present Illness
<Rissa Arshad TRANSIT MIXER DRIVER - Last Filed: 10/24/24 22:33>
General
Chief Complaint: Abdominal Pain
Source: patient
Exam Limitations: none
Time Seen by Provider: 10/24/24 15:30
Nursing documentation reviewed up to this point in time: agreed with
History of Present Illness
History of Present Illness:
84 yo female from [facility] with history of GCA, RA, hypothyroid, gout, HLD, dementia, MDD, blindness in right eye presents stating 'I been having pain in my stomach.' She states has been going on 'for a long time,' but then states it got
worse today. She states she has felt nauseous but has not vomited. She denies feeling nauseous at this time. She states she's had 'some' chest pains, denies SOB or trouble breathing. Last BM a few days ago but has not been eating much cue to lack
of palatable foods. Her son and she are working on changing her food menu. Denies UTI symptoms.
Past History
<Rissa Arshad TRANSIT MIXER DRIVER - Last Filed: 10/24/24 22:33>
Past History
ED Past Medical History: Asthma, Hypercholesterolemia, Hypothyroidism, Other (Dementia, Constipation, Bowel obstruction, Spinal compression fractures, Osteoporosis) and Other (GCA, RA, gout, major depressive disorder, blindness right eye)
ED Past Surgical History: None
Social History
Tobacco: Former smoker
Alcohol: None
Drug: None
Personal:
Living: residential ([facility])
Employment: Not employed
Review of Systems
<Rissa Arshad TRANSIT MIXER DRIVER - Last Filed: 10/24/24 22:33>
Review of Systems
Allergies reviewed?: Yes
All Other Systems: ROS reviewed and negative except as documented in HPI and ROS
Phy Exam
<Rissa Arshad, TRANSIT MIXER DRIVER - Last Filed: 10/24/24 22:33>
Physical Exam
Physical Exam:
GENERAL: No acute distress. Elderly and frail, somnolent, easily arouses, Oriented x3.
CONSTITUTIONAL: Afebrile.
EYES: clear, conjunctivae normal
ENMT: moist mucus membranes, Pharynx nl
RESPIRATORY: Regular respirations, nonlabored, lungs clear.
CARDIOVASCULAR: Regular rate and rhythm, no murmurs, no rubs.
GI: Soft, generally tender, nondistended, normal BS
MUSCULOSKELETAL: Moves with ease. Well perfused. No edema
SKIN: Warm, dry, pale
PSYCH: Depressed mood and affect. Well kept, interactive and appropriate
NEUROLOGIC: somnolent, easily arouses, oriented. No focal neurological deficits
Course
<Rissa Arshad, TRANSIT MIXER DRIVER - Last Filed: 10/24/24 22:33>
Orders/Labs/Results
Orders:
Orders
10/24/24 Dinner
Regular
At Your Request: Limited Participation
Does patient need a safe tray?: No
10/24/24 15:40
Complete Blood Count/With Diff Urgent
Comprehensive Metabolic Panel Urgent
Lipase Urgent
10/24/24 15:41
Urinalysis Reflex To Culture Urgent
Date Specimen was Collected: 10/24/24
Time Specimen was Collected: 15:40
Urine Microscopic Reflex Cult Urgent
10/24/24 15:42
Electrocardiogram (*1) Urgent
Reason for Study: Fatigue / Weakness
10/24/24 15:43
EKG- Treatment ONCE
10/24/24 16:32
CT Abd/Pel (IV only)-DH only Urgent
Comment:
Reason For Exam: general abd pain
10/24/24 16:50
Troponin I Urgent
10/24/24 18:22
0.9% Sodium Chloride 500 ml [Nss] 500 ml IV BOLUS
10/24/24 19:50
Admit/Transfer Patient As Directed
Co-Sign Provider:
Level of Care: Inpatient admission
Assign to:: Telemetry
Physician / Group: alex
Diagnosis: constipation
Reason for Telemetry: Arrhythmia
Date to Stop Telemetry: 10/27/24
Time to Stop Telemetry: 11:00
Reason for Hospitalization: constipation
Expected length of stay greater than two midnights?: Yes
ELOS- Estimated Length of Stay in days: 2
I certify the patient meets the requirements for IP care: Yes
Code Status As Directed
Resuscitation Status: Do not resuscitate
Reached after discussion with pt or family/Healthcare POA: Yes
DNR Bracelet Application ONCE
PRN Pain Medication Management As Directed
May give lesser potent ordered pain med per pt: Yes
preference::
Protocol:: Medication orders for pain may be administered in a
manner that supports deferring to patient preference
when the pt is:
- Requesting an ordered lesser potent pain medication.
Least to most potent pain medications are defined
as: acetaminophen < NSAID < tramadol < opioids
(morphine, oxycodone, hydromorphone).
- Requesting a lesser dose of the same medication IF
ORDERED.
- Requesting a less intrusive route of administration
if both routes are prescribed by the provider (PO <
IV).
10/24/24 20:59
Acetaminophen [Tylenol] 650 mg PO Q6HPRN PRN mild pain/temp>100.4
Albuterol [ProAIR HFA INHALER] 2 puff INH R Q6HPRN PRN sob
Baclofen [Lioresal] 5 mg PO BID
Bisacodyl [Dulcolax] 10 mg RECTAL [id number] PRN if no bm aftr mom
Bismuth Subsalicylate [Ethel Bismuth] 525 mg PO Q3HPRN PRN stoamch issuses
Divalproex Sodium [Depakote Sprinkle] 125 mg PO BID
Gabapentin [Neurontin] 200 mg PO BID
Heparin 5,000 units SC Q12
Lidocaine 4% Cream [Lmx 4] 1 applic TOPICAL QIDPRN PRN lower back
Magnesium Citrate [Citroma] 300 ml PO ONCE ONE
Magnesium Hydroxide [Milk of Magnesia] 30 ml PO [id number] PRN if no by 3rd day
Polyethylene Glycol Powder [Miralax] 17 grams PO BID
10/24/24 20:59
Activity As Directed
Activity Level: As Tolerated
Vital Signs As Directed
Frequency: Per unit guidelines
DX Deep Vein Thrombosis Video Routine
10/24/24 21:12
Saliva Substitute [[place]] 2 spray PO TIDPRN PRN
10/24/24 22:00
Mirtazapine [Remeron] 30 mg PO HS
witch tia [Preparation H (Witch Tia)] 1 pad TOPICAL TID
10/25/24 06:00
Complete Blood Count/With Diff IN AM
Comprehensive Metabolic Panel IN AM
10/25/24 08:00
Amlodipine [Norvasc] 5 mg PO DAILY
Calcium Carbonate/Vitamin D3 [Oscal 500 + D] 500 mg PO DAILY
Cholecalciferol (Vitamin D3) [VITAMIN D3 (cholecalciferol)] 25 mcg PO DAILY
Pantoprazole [Protonix] 20 mg PO DAILY
10/27/24 11:00
DC Protocol for Telemetry ONCE
Abnormal Lab Results
10/24/24 10/24/24
15:40 15:41
RBC 3.81 L 10^6/uL
(4.20-5.40)
Hct 35.7 L %
(37.0-47.0)
MCH 32.0 H pg
(27.0-31.0)
Immature Gran % 0.8 H %
(0-0.5)
Sodium 129 L mmol/L
(135-145)
Chloride 91 L mmol/L
(98-107)
Carbon Dioxide 35 H mmol/L
(22-30)
AST 48 H U/L
(14-36)
ALT 40 H U/L
(0-35)
Urine Bacteria (Reflex) Few A
(Negative)
Urine Albumin (Reflex) 1+ A
(Neg - Trace)
10/24/24 15:40
10/24/24 15:40
Vital Signs
Initial and Last Documented VS:
Initial Vital Signs
Temp Pulse Resp BP Pulse Ox
97.9 F 59 16 139/70 93
10/24/24 15:30 10/24/24 15:30 10/24/24 15:30 10/24/24 15:30 10/24/24 15:30
Last Documented Vital Signs
Temp Pulse Resp BP Pulse Ox
97.2 F 51 16 142/76 98
10/24/24 21:19 10/24/24 21:19 10/24/24 21:19 10/24/24 21:19 10/24/24 21:19
Personnel Worker consulted with Physician
Personnel Worker consulted with physician?: Yes
Name of Physician Consulted: Eimliano
<Rissa Xavier, DO - Last Filed: 10/24/24 20:26>
Orders/Labs/Results
Orders:
Orders
10/24/24 Dinner
Regular
At Your Request: Limited Participation
Does patient need a safe tray?: No
10/24/24 15:40
Complete Blood Count/With Diff Urgent
Comprehensive Metabolic Panel Urgent
Lipase Urgent
10/24/24 15:41
Urinalysis Reflex To Culture Urgent
Date Specimen was Collected: 10/24/24
Time Specimen was Collected: 15:40
Urine Microscopic Reflex Cult Urgent
10/24/24 15:42
Electrocardiogram (*1) Urgent
Reason for Study: Fatigue / Weakness
10/24/24 15:43
EKG- Treatment ONCE
10/24/24 16:32
CT Abd/Pel (IV only)-[facility] only Urgent
Comment:
Reason For Exam: general abd pain
10/24/24 16:50
Troponin I Urgent
10/24/24 18:22
0.9% Sodium Chloride 500 ml [Nss] 500 ml IV BOLUS
10/24/24 19:50
Admit/Transfer Patient As Directed
Co-Sign Provider:
Level of Care: Inpatient admission
Assign to:: Telemetry
Physician / Group: alex
Diagnosis: constipation
Reason for Telemetry: Arrhythmia
Date to Stop Telemetry: 10/27/24
Time to Stop Telemetry: 11:00
Reason for Hospitalization: constipation
Expected length of stay greater than two midnights?: Yes
ELOS- Estimated Length of Stay in days: 2
I certify the patient meets the requirements for IP care: Yes
Code Status As Directed
Resuscitation Status: Do not resuscitate
Reached after discussion with pt or family/Healthcare POA: Yes
DNR Bracelet Application ONCE
PRN Pain Medication Management As Directed
May give lesser potent ordered pain med per pt: Yes
preference::
Protocol:: Medication orders for pain may be administered in a
manner that supports deferring to patient preference
when the pt is:
- Requesting an ordered lesser potent pain medication.
Least to most potent pain medications are defined
as: acetaminophen < NSAID < tramadol < opioids
(morphine, oxycodone, hydromorphone).
- Requesting a lesser dose of the same medication IF
ORDERED.
- Requesting a less intrusive route of administration
if both routes are prescribed by the provider (PO <
IV).
10/24/24 20:59
Acetaminophen [Tylenol] 650 mg PO Q6HPRN PRN mild pain/temp>100.4
Albuterol [ProAIR HFA INHALER] 2 puff INH R Q6HPRN PRN sob
Baclofen [Lioresal] 5 mg PO BID
Bisacodyl [Dulcolax] 10 mg RECTAL [id number] PRN if no bm aftr mom
Bismuth Subsalicylate [Ethel Bismuth] 525 mg PO Q3HPRN PRN stoamch issuses
Divalproex Sodium [Depakote Sprinkle] 125 mg PO BID
Gabapentin [Neurontin] 200 mg PO BID
Heparin 5,000 units SC Q12
Lidocaine 4% Cream [Lmx 4] 1 applic TOPICAL QIDPRN PRN lower back
Magnesium Citrate [Citroma] 300 ml PO ONCE ONE
Magnesium Hydroxide [Milk of Magnesia] 30 ml PO [id number] PRN if no by 3rd day
Polyethylene Glycol Powder [Miralax] 17 grams PO BID
10/24/24 20:59
Activity As Directed
Activity Level: As Tolerated
Vital Signs As Directed
Frequency: Per unit guidelines
DX Deep Vein Thrombosis Video Routine
10/24/24 21:12
Saliva Substitute [[place]] 2 spray PO TIDPRN PRN
10/24/24 22:00
Mirtazapine [Remeron] 30 mg PO HS
witch tia [Preparation H (Witch Tia)] 1 pad TOPICAL TID
10/25/24 06:00
Complete Blood Count/With Diff IN AM
Comprehensive Metabolic Panel IN AM
10/25/24 08:00
Amlodipine [Norvasc] 5 mg PO DAILY
Calcium Carbonate/Vitamin D3 [Oscal 500 + D] 500 mg PO DAILY
Cholecalciferol (Vitamin D3) [VITAMIN D3 (cholecalciferol)] 25 mcg PO DAILY
Pantoprazole [Protonix] 20 mg PO DAILY
10/27/24 11:00
DC Protocol for Telemetry ONCE
Abnormal Lab Results
10/24/24 10/24/24
15:40 15:41
RBC 3.81 L 10^6/uL
(4.20-5.40)
Hct 35.7 L %
(37.0-47.0)
MCH 32.0 H pg
(27.0-31.0)
Immature Gran % 0.8 H %
(0-0.5)
Sodium 129 L mmol/L
(135-145)
Chloride 91 L mmol/L
(98-107)
Carbon Dioxide 35 H mmol/L
(22-30)
AST 48 H U/L
(14-36)
ALT 40 H U/L
(0-35)
Urine Bacteria (Reflex) Few A
(Negative)
Urine Albumin (Reflex) 1+ A
(Neg - Trace)
10/24/24 15:40
10/24/24 15:40
Vital Signs
Initial and Last Documented VS:
Initial Vital Signs
Temp Pulse Resp BP Pulse Ox
97.9 F 59 16 139/70 93
10/24/24 15:30 10/24/24 15:30 10/24/24 15:30 10/24/24 15:30 10/24/24 15:30
Last Documented Vital Signs
Temp Pulse Resp BP Pulse Ox
97.2 F 51 16 142/76 98
10/24/24 21:19 10/24/24 21:19 10/24/24 21:19 10/24/24 21:19 10/24/24 21:19
<Rissa Arshad, TRANSIT MIXER DRIVER - Last Filed: 10/24/24 22:33>
MDM/Problems Addressed
Differential Diagnosis Includes:
UTI, dehydration, constipation, bowel obstruction, diverticulitis, cholecystitis, appendicitis
MDM/Problems Addressed:
84 yo female from [facility] with history of GCA, RA, hypothyroid, gout, HLD, dementia, MDD, blindness in right eye presents stating 'I been having pain in my stomach.' She states has been going on 'for a long time,' but then states it got
worse today. She states she has felt nauseous but has not vomited. She denies feeling nauseous at this time. She states she's had 'some' chest pains, denies SOB or trouble breathing. Last BM a few days ago but has not been eating much cue to lack
of palatable foods. Her son and she are working on changing her food menu. Denies UTI symptoms.
NAD, afebrile, no infectious symptoms
4:30 PM:
CBC with no clinically significant abnormality
CMP: Sodium 129 chloride 91, bicarb 35, minimal elevation AST ALT drip
Troponin WNL
UA negative
CT abdomen pelvis radiology report read: IMPRESSION:
1. No significant acute abnormality identified in the abdomen or pelvis, as described above.
2. Moderate diffuse colonic stool burden may reflect constipation.
3. Numerous chronic appearing thoracolumbar compression deformities.
Son just called and said [facility] personnel told him she had a syncopal episode
Case discussed with Dr. Varela, who examined patient, with low Na, syncopal episode, most likely from dehydration.
Spoke with Priyank, nurse at residential, he did not witness the episode but read the nurses notes that said 'she approached the nurses station and said I do not feel good, then went unresponsive but quickly became alert again.'
At baseline she can walk with her rollator independently.
7:15 p.m.
Son at bedside updated, agrees with plan
Plan: Admit: Hyponatremia, dehydration, syncopal episode constipation
Hospitalist notified of admission
<Rissa Xavier, - Last Filed: 10/24/24 20:26>
MDM/Problems Addressed
MDM/Problems Addressed:
84 yo female from [facility] with history of GCA, RA, hypothyroid, gout, HLD, dementia, MDD, blindness in right eye presents stating 'I been having pain in my stomach.' She states has been going on 'for a long time,' but then states it got
worse today. She states she has felt nauseous but has not vomited. She denies feeling nauseous at this time. She states she's had 'some' chest pains, denies SOB or trouble breathing. Last BM a few days ago but has not been eating much cue to lack
of palatable foods. Her son and she are working on changing her food menu. Denies UTI symptoms.
NAD, afebrile, no infectious symptoms
4:30 PM:
CBC with no clinically significant abnormality
CMP: Sodium 129 chloride 91, bicarb 35, minimal elevation AST ALT drip
Troponin WNL
UA negative
CT abdomen pelvis radiology report read: IMPRESSION:
1. No significant acute abnormality identified in the abdomen or pelvis, as described above.
2. Moderate diffuse colonic stool burden may reflect constipation.
3. Numerous chronic appearing thoracolumbar compression deformities.
Son just called and said [facility] personnel told him she had a syncopal episode
Case discussed with Dr. Xavier, who examined patient, with low Na, syncopal episode, most likely from dehydration.
Spoke with Priyank, nurse at residential, he did not witness the episode but read the nurses notes that said 'she approached the nurses station and said I do not feel good, then went unresponsive but quickly became alert again.'
At baseline she can walk with her rollator independently.
7:15 p.m.
Son at bedside updated, agrees with plan
Plan: Admit: Hyponatremia, dehydration, syncopal episode constipation
Hospitalist notified of admission
<Rissa Arshad TRANSIT MIXER DRIVER - Last Filed: 10/24/24 22:33>
*Pulse Oximetry
SaO2: 94
Oxygen Mode of Delivery: Room air
Patient hypoxic: no
*Critical Care Note
Total Time (30-74mins, 75-104mins- exclusive of procedures): Not Applicable
ED Attending Note
<Rissa Arshad TRANSIT MIXER DRIVER - Last Filed: 10/24/24 22:33>
-
Portions of this chart may have been created with voice recognition software.� Occasional wrong word or��sound alike� substitutions may have occurred due to the inherent limitations of voice recognition software.
<Rissa Xavier DO - Last Filed: 10/24/24 20:26>
ED Attending Note
Patient seen and examined by attending physician: Yes
I performed the substantive portion of visit, reviewed & personally made and approve the management plan that is documented in note by myself or RALPH.: Yes
I performed a history and physical exam of patient and discussed management with resident, I reviewed resident's note and agree with documented findings and plan of care.: Yes
ED Attending Note:
84-year-old female brought to the ER by EMS for evaluation of brief syncopal event that occurred today. Patient son is present bedside to provide additional history. He states that she has been eating less over the last several days. She has been
far less interactive with other residents at her long-term care facility. She prefers to spend most of her time in her room. He denies any significant change in her medical history. He states that she told him that he she no longer wants to
participate in physical therapy. She does have a prior history of dementia. Vital signs reviewed, patient is resting comfortably, easily awakens to answer questions but is pleasantly confused, wearing red glasses, mucous membranes moist, moving
extremities spontaneously without focal deficit, GCS is 14, heart regular rate and rhythm without murmurs or ectopy, lungs are clear to auscultation, abdomen is soft and nontender. I discussed with patient and son benefit of admission for further
evaluation of hyponatremia, though this is likely related to her poor appetite and overall general decline. Patient presentation was reviewed with the hospitalist by TRANSIT MIXER DRIVER who accepts patient for admission.
Discharge Plan
Departure
Patient Disposition: Admit
Date of Disposition: 10/24/24
Time of Disposition: 19:12
Admit to: Med/Surg
Presentation/result/management discussed w/ accepting MD/DO: Hospitalist
Condition: Fair
Discharge Problem:
Episode of syncope, Acute hyponatremia, Acute dehydration
Interventions
Interventions:
*Risk Screen - Suicide Last Done: 10/24/24 15:35
*General Assessment Last Done: 10/24/24 15:35
*Neglect/Abuse Screening Last Done: 10/24/24 15:35
*ED COVID-19 Vaccine History Last Done: 10/24/24 15:35
*Nursing Disposition Last Done: 10/24/24 20:51
KG-Zxphsg-Uwtfiadrsx Assessment Last Done: 10/24/24 15:45
Discharge Date and Time
Discharge Date/Time: 10/24/24 20:52
[2024-10-24 16:22] LABS: ALT (SGPT) 40 U/L (0-35); AST (SGOT) 48 U/L (14-36); Albumin 4.7 g/dl (3.5-5.0); Alkaline Phosphatase 54 U/L (38-126); Blood Urea Nitrogen 15 mg/dl (7-17); Calcium 9.5 mg/dl (8.4-10.2); Carbon Dioxide 35 mmol/L (22-30); Chloride 91 mmol/L (98-107); Estimated Creatinine Clearance 40 ml/min; Glucose 82 mg/dl (70-99); Lipase 155 U/L (23-300); Potassium 4.2 mmol/L (3.5-5.1); Sodium 129 mmol/L (135-145); Total Protein 6.8 g/dl (6.3-8.2); eGFR > 60.00
[2024-10-24 16:42] LABS: Urine Red Blood Cell 0-2 /HPF (0-2); Urine Squamous Cell 0-2 /LPF (Few)
[2024-10-24 17:21] LABS: Troponin I < 0.012 ng/ml
[2024-10-24] MEDS: NSS 500 IV (19:09)
--- NOTE | 2024-10-24 19:57 | HPS.HSE ---
Family Physician
-
Family Physician: Kobe Shelton, DO
Chief Complaint
-
abdominal pain,
History of Present Illness
84-year-old female past medical history of giant cell arteritis, rheumatoid arthritis, asthma, hypothyroidism, dementia, anxiety/depression, spinal compression fractures, osteoporosis, hyperlipidemia, hypertension, GERD, severe constipation, gout,
blindness in the right eye, [facility]. She states abdominal pain has been going on for a long time but got worse today. She felt nauseous without vomiting. She has had occasional chest pain but denies
shortness of breath or cough. Her last bowel movement was a week ago but she has not been eating much due to lack of tasty foods. Her son are working on changing her food menu. Denies any urinary symptoms.
As per son she had a syncopal episode. ER spoke with [facility]ank at the [facility] who states that he did not witness the episode but states that the nurses had said that the patient approached the nurses station and said that she did not feel well and
became unresponsive and quickly became alert again. At baseline she can walk with a rollator independently.
She previously had a syncopal episode while using the toilet.
She does not smoke or drink alcohol.
Medical History
Past Medical History
Past Medical History: Reports Other (giant cell arteritis, rheumatoid arthritis, asthma, hypothyroidism, dementia, anxiety/depression, spinal compression fractures, osteoporosis, hyperlipidemia, hypertension, GERD, severe constipation, gout,
blindness in the right eye)
Past Surgical History: Reports Other (Tonsillectomy 1971 left tympanic membrane repair Bilateral oophorectomy Left foot unknown operation)
Social History
Tobacco: Non-smoker
Alcohol: None
Drug: None
Family History
Family History: Not pertinent
Allergies / Home Medications
Allergies reflects when Allergies were last updated in [facility].
Home Medications with original date entered in [facility]
Allergy/Medication List:
Allergies
Allergy/AdvReac Type Severity Reaction Status Date / Time
nickel Allergy Rash Verified 08/04/24 13:35
Penicillins Allergy Rash Verified 08/04/24 13:35
Home Medications
bisacodyl 10 mg rectal suppository 10 mg AK [id number] PRN if no bm aftr mom 07/03/23
divalproex 125 mg capsule,delayed release sprinkle (Depakote Sprinkles) 125 mg PO BID Neurological Condition 07/03/23
magnesium hydroxide 400 mg/5 mL oral suspension (Milk of Magnesia) 30 ml PO [id number] PRN if no by 3rd day 07/03/23
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
gabapentin 100 mg capsule 200 mg (2 x 100 mg) PO BID Neurological Condition #0 caps 07/10/23
baclofen 5 mg tablet 5 mg PO BID 07/25/23
calcium 600 mg (as carbonate)-vitamin D3 10 mcg (400 unit) tablet (Calcium 600 + D(3)) 1 tab PO DAILY 07/25/23
acetaminophen 325 mg tablet (Tylenol) 650 mg PO Q6HPRN PRN mild pain/temp>100.4 07/27/23
albuterol sulfate 90 mcg/actuation aerosol inhaler 2 puff inhalation R Q6HPRN PRN sob 10/24/24
amlodipine 5 mg tablet (Norvasc) 5 mg PO DAILY 10/24/24
bismuth subsalicylate 262 mg/15 mL oral suspension (Pepto-Bismol) 524 mg PO Q3HPRN PRN stoamch issuses 10/24/24
cholecalciferol (vitamin D3) 25 mcg (1,000 unit) tablet (Vitamin D3) 25 mcg PO DAILY 10/24/24
lidocaine 4 % topical cream 1 applic topical QIDPRN PRN lower back 10/24/24
mirtazapine 30 mg tablet 30 mg PO HS 10/24/24
pantoprazole 20 mg tablet,delayed release (Protonix) 20 mg PO DAILY 10/24/24
polyethylene glycol 3350 17 gram oral powder packet (HealthyLax) 17 g PO DAILY 10/24/24
saliva stimulant comb. no.3 (Biotene Moisturizing Mouth mucosal spray) 2 applic mucous membrane TIDPRN PRN dry mouth 10/24/24
witch betty 20 % topical pads (Preparation H (Witch Betty)) 1 pad topical TID after each bm 10/24/24
Review of Systems
-
History Source: Patient
A 12 point ROS was completed and negative except as noted: Yes
Constitutional: Reports No Symptoms
EENT: Reports No Symptoms
Respiratory: Reports No Symptoms
Cardiac: Reports No Symptoms
Abdomen/GI: Reports See HPI
: Reports No Symptoms
Musculoskeletal: Reports No Symptoms
Skin: Reports No Symptoms
Neurological: Reports No Symptoms
Endocrine: Reports No Symptoms
Hematologic/Lymphatic: Reports No Symptoms
Psych: Reports No Symptoms
Physical Exam
Vital Signs
Vital Signs
Temp Pulse Resp BP Pulse Ox
97.9 F 50 17 112/66 95
10/24/24 15:30 10/24/24 19:00 10/24/24 19:00 10/24/24 19:00 10/24/24 18:45
Physical Exam
General: Well Developed, Well Nourished and No Apparent Distress
HEENT: NormoCephalic, Moist mucous membranes and Atraumatic
Respiratory: Clear
Cardiac: S1/S2 and Regular Rhythm; No Murmur or Rub
GI: Soft, Non Tender, Non Distended and Normal Bowel Sounds; No Organomegaly
Rectal: Deferred by Provider
Musculoskeletal: No Clubbing, No Cyanosis and No Edema
Skin: No Rash
Neuro: Nonfocal/grossly intact
Laboratory Results
-
10/24/24 15:40
10/24/24 15:40
Laboratory Results
Total Bilirubin 0.8 mg/dl (0.2-1.3) 10/24/24 15:40
AST 48 U/L (14-36) H 10/24/24 15:40
ALT 40 U/L (0-35) H 10/24/24 15:40
Alkaline Phosphatase 54 U/L (38-126) 10/24/24 15:40
Troponin I < 0.012 ng/ml 10/24/24 16:50
Lipase 155 U/L (23-300) 10/24/24 15:40
Data Reviewed
-
Lab Data: Labs Reviewed by me
Old Records: Reviewed
Impression/Plan
-
IMPRESSION:
PLAN:
# Abdominal pain secondary to recurrent constipation likely from decreased p.o. intake
# History of stercoral colitis/fecal impaction
-No bowel movement in 1 week
- CT abdomen pelvis shows moderate diffuse colonic stool burden which may represent constipation,
- Continue MiraLAX increased to twice daily, Dulcolax
- Give mag citrate
# Syncopal episode likely from hypovolemia versus vagal
- IV fluids given
- EKG shows sinus bradycardia
- Telemetry monitoring
- Check orthostatics
# Mild hyponatremia secondary to decreased p.o. intake
- Sodium 129
# Mild transaminitis
- Continue to monitor
Giant cell arteritis
- Patient on Actemra
Rheumatoid arthritis
Asthma
- Continue albuterol
Hypothyroidism
Dementia
- Continue baclofen, gabapentin, Depakote for mood stabilization
Anxiety/depression
- Continue mirtazapine
Spinal compression fractures
Osteoporosis
Hyperlipidemia
Essential hypertension
- Continue amlodipine
GERD
- Continue Protonix
Gout
Blindness of right eye
Full code
DVT prophylaxis�heparin
DNR/DNI
[2024-10-24] MEDS: NEURONTIN 200 MG PO (21:44)
[2024-10-24] MEDS: HEPARIN 5000 UNITS SC (21:44)
[2024-10-24] MEDS: MIRALAX 17 GRAMS PO (21:44)
[2024-10-24] MEDS: REMERON 30 MG PO (21:44)
[2024-10-24] MEDS: DEPAKOTE SPRINKLE 125 MG PO (21:45)
[2024-10-24] MEDS: LIORESAL 5 MG PO (21:45)
[2024-10-24] MEDS: CITROMA 300 ML PO (21:55)
[2024-10-24] MEDS: TYLENOL 650 MG PO (22:06)
--- NOTE | 2024-10-24 23:00 | PTCARENOTE ---
Patient straight cath 700ml clear yellow urine.
[2024-10-25] VITALS (12 sets, daily range): BP systolic 105–130; BP diastolic 59–100; PULSE 80–88
--- NOTE | 2024-10-25 02:07 | PTCARENOTE ---
10/24 at 2054 Pt received from ED via stretcher w/ son at bedside; Medsurg orders> afebrile, HR 51, RR 16, BP 142/76, pox 98% 3LNC. C/o pain (chronic) to lower back- Tylenol administered. Per patient, takes pills crushed in applesauce. Patient AAOx2
(off to year) CHILKOOT- left b/l hearing aides at [facility], Rt eye blind. Sacrum and B/L heels blanchable red- protective foams placed. Static air overlay in place. Bed alarm in place. PMH reviewed by this RN and sonJames. Pt and son unsure of last medications
administered at [facility]. Plan of care discussed with Pt and son. Pt oriented to room, call cason within reach.
[2024-10-25] MEDS: DULCOLAX 10 MG RECTAL (02:37)
--- NOTE | 2024-10-25 02:47 | PTCARENOTE ---
Pt administered MOM beginning of shift and still has not had BM. Ducolex administered. Plan of care discussed with patient.
--- NOTE | 2024-10-25 07:55 | W.PN.HOSP.TC ---
Today's Communication/Plan
-
- Start levothyroxine
- Wean off O2 NC
- Advance bowel regimen laxatives
- Trend LFTs
Assessment / Plan
Assessment / Plan
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
constipation.
#Abdominal pain
Likely 2/2 constipation. Pt with poor PO intake for the last few days. Last BM multiple days ago. CT a/p with moderate diffuse colonic stool burden. 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 Pt also with hx of hypothyroid but
not on levothyroxine; hypothyroid may cause constipation. Elevated TSH > likely hypothyroid driving constipation. Pt afebrile, without leukocytosis, vomiting, diarrhea; UA negative for infection; CT a/p without abnormalities; low c/f infection.
Today, endorsing abd pain to palpation and saying she feels like she is about to have BM. (No BM yet as of exam)
- Check TSH
- Miralax 17g bid
- Standing bisacodyl daily
- Suppository now
- PRN enema
- Dulcolax 10mg q72h PRN
- Milk of magnesia 30ml q72h PRN
- Monitor for BM & improvement in abd sx
#Hypothyroidism, poorly controlled
Hypothyroid listed in chart but levothyroxine not on home meds. Last TSH 07/04/23 was 10.10. TSH 10/25/24 is 68.7. Likely contributing to clinical picture.
- Start levothyroxine 25mcg daily
- Confirm with SNF about home meds
- Plan to recheck TSH in 4-6 weeks
#Transaminitis
AST/ALT uptrendin>98 ALT, 48>128 AST. Alk phos wnl. Consider hypothyroid, hepatic steatosis.
- Continue to monitor
#Hyponatremia
Pt with Na 129 on admission. Likely in s/o potomania, poor PO solute intake.
Today, Na: 129>134
- Continue to monitor
- Encourage PO intake
#Recent syncopal episode
Per son, pt with recent syncopal episode at [facility]. Ambulates w rollator at baseline. Likely in s/o poor PO intake and dehydration. S/p 500cc IV NSS.
Today, BP 130/72 at rest.
- Follow orthostatic vitals, pending
- Compression socks
- Encourage PO intake
- Remove O2 NC today
#Leukopenia
WBC 3.8 today; appears to be chronic looking at patient's prior labs. Fluctuates in low normal to mildly decreased.
- Continue to monitor
#Hypochloremic alkalosis
Pt with bicarb 35 and Cl 91 on admission. Denied vomiting or diarrhea. K wnl. Not on diuretics. Pt does take calcium carbonate supplement. Ca wnl 9.5, low suspicion for milk alkali syndrome.
- Continue to monitor
#Chronic
- Asthma - albuterol prn
- Gout - no home allopurinol
- HLD - no home statin; lipid levels 10/25 (279 cholesterol; 216 TG; 141 LDL; 43 VLDL); can hold off on statin given age, frailty
- Mood disorder - depakote, mirtazapine
- Osteoporosis - oscal, cholecalciferol
- HTN - amlodipine
- GCA - ntd
- RA - gabapentin, baclofen
- Home meds - pantoprazole
#Global
- DVT ppx: lovenox
- Diet: cholesterol lowering
- Code: DNR/DNI
- Dispo: lives at [facility]; consult PT/OT
Anticipated Discharge: 24 - 48 hours
Subjective/Interval History
-
Date of Service: October 25, 2024
Pt groggy, with difficult to understand speech. Thought she was at [facility]. Knows year & her full name. Unable to endorse if uses NC at SNF (likely no). Endorses pain in abdomen. Says that she feels like she needs to have BM.
Objective Data
-
Labs:
Laboratory Results
10/25/24
06:00
WBC Pending
Hgb Pending
Hct Pending
Plt Count Pending
Sodium Pending
Potassium Pending
Chloride Pending
Carbon Dioxide Pending
BUN Pending
Creatinine Pending
Glucose Pending
Calcium Pending
Total Bilirubin Pending
AST Pending
ALT Pending
Alkaline Phosphatase Pending
Vital Signs:
Vital Signs
Temp Pulse Resp BP Pulse Ox
97.4 F 63 16 130/72 94
10/25/24 07:00 10/25/24 07:00 10/25/24 07:00 10/25/24 07:00 10/25/24 07:00
I&O
10/24/24 10/25/24 10/26/24
06:59 06:59 06:59
Intake Total 480 / 480
Output Total 700 / 700
Balance -220 / -220
Review of Systems
-
Unable to obtain full review of systems at this time due to: Dementia and Acuity
History Source: Patient
Abdomen/GI: Reports Abdominal Pain
Physical Exam
-
General: Other (appears elderly, frail)
HEENT: Normocephalic, Atraumatic, Anicteric and Oxygen (O2 NC)
Respiratory: Non Labored Respirations
Cardiac: Regular Rhythm
GI: Nondistended and Tender (all quadrants )
Musculoskeletal: No Edema
Skin: Warm and Dry
Neuro: Awake and Alert
Psych: Calm and Confused
Data Reviewed
-
Total Time Spent with Patient (in minutes): 15
Critical Care Time (in minutes): 45
CT Scan: Report Reviewed by me
Labs: Labs Reviewed by me
[2024-10-25] MEDS: PROTONIX 20 MG PO (08:00)
[2024-10-25] MEDS: HEPARIN 5000 UNITS SC (08:00)
[2024-10-25] MEDS: DEPAKOTE SPRINKLE 125 MG PO ×2 (08:00→20:54)
[2024-10-25] MEDS: LIORESAL 5 MG PO ×2 (08:00→20:54)
[2024-10-25] MEDS: NEURONTIN 200 MG PO ×2 (08:01→20:54)
[2024-10-25] MEDS: OSCAL 500 + D 500 MG PO (08:01)
[2024-10-25] MEDS: VITAMIN D3 (cholecalciferol) 25 MCG PO (08:01)
[2024-10-25] MEDS: MIRALAX 17 GRAMS PO (08:01)
[2024-10-25] MEDS: NORVASC 5 MG PO (08:01)
[2024-10-25 08:22] LABS: Hematocrit 39.7 % (37.0-47.0); Hemoglobin 13.6 g/dL (12.0-16.0); Mean Corp Hgb Conc. 34.3 g/dL (33.0-37.0); Mean Corpuscular Volume 94.1 fL (81.0-99.0); Nucleated Red Blood Cells % 0 %; Platelet Count 186 10^3/uL (130-400); Red Cell Dist. Width 13.6 % (11.5-14.5)
[2024-10-25 08:44] LABS: ALT (SGPT) 98 U/L (0-35); AST (SGOT) 128 U/L (14-36); Albumin 4.7 g/dl (3.5-5.0); Alkaline Phosphatase 65 U/L (38-126); Blood Urea Nitrogen 16 mg/dl (7-17); Calcium 8.6 mg/dl (8.4-10.2); Carbon Dioxide 36 mmol/L (22-30); Chloride 95 mmol/L (98-107); Estimated Creatinine Clearance 45 ml/min; Glucose 87 mg/dl (70-99); Potassium 4.6 mmol/L (3.5-5.1); Sodium 134 mmol/L (135-145); Total Protein 7.1 g/dl (6.3-8.2); eGFR > 60.00
[2024-10-25 08:56] LABS: HDL Cholesterol 95 mg/dl; LDL Cholesterol, Calculated 141 mg/dl; Very Low Density Lipoprotein 43 mg/dl (0-30)
--- NOTE | 2024-10-25 10:36 | CM ---
city maintenance manager reviewed patient's chart and met with patient and spoke with patient's son, James by phone, patient was admitted from [facility] where patient resides, per son patient was using a walker and w/c at nursing facility. Patient is
currently on 3 liters of oxygen, per nursing supervisor liquid yeast at [facility], patient was on oxygen at their facility 2 liters PRN, plan to return to [facility] when stable, referral sent in [facility].
Plan; Patient to return to [facility] when stable, referral sent to [facility], will need to reach out to admissions for numbers for report and fax.
[2024-10-25] MEDS: SYNTHROID 25 MCG PO (11:50)
[2024-10-25] MEDS: TYLENOL 650 MG PO (11:51)
[2024-10-25] MEDS: LOVENOX 40 MG SC (17:08)
--- NOTE | 2024-10-25 17:58 | W.PN.UPDATE ---
Update Note
Progress Note Update
Spoke on the phone with nursing staff at [facility] - confirmed that patient has not been receiving levothyroxine for at least the last year.
[2024-10-25] MEDS: MIRALAX PO (20:55)
[2024-10-25] MEDS: REMERON 30 MG PO (20:55)
[2024-10-26 03:25] VITALS: BP 115/64
[2024-10-26] MEDS: SYNTHROID 25 MCG PO (05:33)
[2024-10-26 06:01] VITALS: BMI 21.4
[2024-10-26 06:35] LABS: Hematocrit 39.4 % (37.0-47.0); Hemoglobin 13.4 g/dL (12.0-16.0); Mean Corp Hgb Conc. 34.0 g/dL (33.0-37.0); Mean Corpuscular Volume 96.1 fL (81.0-99.0); Nucleated Red Blood Cells % 0 %; Platelet Count 195 10^3/uL (130-400); Red Cell Dist. Width 13.6 % (11.5-14.5)
[2024-10-26 06:57] LABS: ALT (SGPT) 67 U/L (0-35); AST (SGOT) 66 U/L (14-36); Albumin 4.5 g/dl (3.5-5.0); Alkaline Phosphatase 75 U/L (38-126); Blood Urea Nitrogen 13 mg/dl (7-17); Calcium 8.4 mg/dl (8.4-10.2); Carbon Dioxide 38 mmol/L (22-30); Chloride 93 mmol/L (98-107); Estimated Creatinine Clearance 45 ml/min; Glucose 83 mg/dl (70-99); Potassium 4.3 mmol/L (3.5-5.1); Sodium 133 mmol/L (135-145); Total Protein 6.9 g/dl (6.3-8.2); eGFR > 60.00
[2024-10-26 07:00] VITALS: BP 100/59
[2024-10-26] MEDS: TYLENOL 650 MG PO (07:44)
[2024-10-26] MEDS: DEPAKOTE SPRINKLE 125 MG PO (07:45)
[2024-10-26] MEDS: NEURONTIN 200 MG PO (07:45)
[2024-10-26] MEDS: PROTONIX 20 MG PO (07:57)
[2024-10-26] MEDS: NORVASC 5 MG PO (07:58)
[2024-10-26] MEDS: LIORESAL 5 MG PO (07:58)
[2024-10-26] MEDS: DULCOLAX 5 MG PO (07:59)
[2024-10-26] MEDS: MIRALAX PO (07:59)
[2024-10-26] MEDS: VITAMIN D3 (cholecalciferol) 25 MCG PO (07:59)
[2024-10-26] MEDS: OSCAL 500 + D 500 MG PO (07:59)
--- NOTE | 2024-10-26 08:15 | W.PN.HOSP.TC ---
Today's Communication/Plan
-
- Discharge potentially today
- Continue levothyroxine 25mcg
- Standing miralax +/- senna
Assessment / Plan
Assessment / Plan
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
constipation, likely 2/2 uncontrolled hypothyroidism.
#Hypothyroidism, poorly controlled
Hypothyroid listed in chart but levothyroxine not on home meds. Per RN at [facility], no levothyroxine for at least 1 yr. No reason documented for holding. Last TSH 07/04/23 was 10.10. TSH 10/25/24 is 68.7. Likely driving clinical picture.
- Levothyroxine 25mcg daily
- Plan to recheck TSH in 4-6 weeks outpatient
#Abdominal pain
#Constipation
Discomfort likely 2/2 constipation. Pt with poor PO intake for the last few days. Last BM multiple days prior to admission. CT a/p with moderate diffuse colonic stool burden. 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 Pt also
with hx of hypothyroid but has not been on levothyroxine for at least a year. Elevated TSH > likely hypothyroid driving constipation. Pt afebrile, without leukocytosis, vomiting, diarrhea; UA negative for infection; CT a/p without abnormalities; low
c/f infection.
Pt with many documented loose BMs on 10/25 and one this morning 10/26.
- Miralax 17g bid
- Bisacodyl daily > convert to PRN
- Levothyroxine 25mcg daily
- PRN enema
- Dulcolax 10mg q72h PRN
- Milk of magnesia 30ml q72h PRN
- Monitor for BM & improvement in abd sx
#Transaminitis
AST/ALT: 40>98>67 ALT, 48>128>66 AST. Alk phos wnl. Consider hypothyroid, hepatic steatosis w elevated TG/cholesterol.
- Continue to monitor
#Hyponatremia
Pt with Na 129 on admission. Likely in s/o potomania, poor PO solute intake.
Na: 129>134>133
- Continue to monitor
- Encourage PO intake
#Recent syncopal episode
Per son, pt with recent syncopal episode at [facility]. Ambulates w rollator at baseline. Likely in s/o poor PO intake and dehydration. S/p 500cc IV NSS. Orthostatic vitals 10/25: no change HR; systolic BP increased by 20 from supine TO sitting/standing.
Today, BP 100/59 at rest supine. 97% on O2 NC.
- Compression socks
- Encourage PO intake
- Attempt to remove O2 NC today
#Leukopenia, resolved
WBC 3.8 on admission; appears to be chronic looking at patient's prior labs. Fluctuates in low normal to mildly decreased.
WBC: 3.8>7.0
- Continue to monitor
#Hypochloremic alkalosis
Pt with bicarb 35 and Cl 91 on admission. Denied vomiting or diarrhea. K wnl. Not on diuretics. Pt does take calcium carbonate supplement. Ca wnl 9.5, low suspicion for milk alkali syndrome.
- Continue to monitor
#Chronic
- Asthma - albuterol prn
- Gout - no home allopurinol
- HLD - no home statin; lipid levels 10/25 (279 cholesterol; 216 TG; 141 LDL; 43 VLDL); can hold off on statin given age, frailty
- Mood disorder - depakote, mirtazapine
- Osteoporosis - oscal, cholecalciferol
- HTN - amlodipine
- GCA - ntd
- RA - gabapentin, baclofen
- Home meds - pantoprazole
#Global
- DVT ppx: lovenox
- Diet: cholesterol lowering
- Code: DNR/DNI
- Dispo: lives at [facility]; consult PT/OT; potential dispo today
Anticipated Discharge: Today
Subjective/Interval History
-
Date of Service: October 26, 2024
Patient groggy this a.m., without hearing aids in. Somewhat difficult to communicate. However, endorses multiple loose stools yesterday and this morning after receiving laxative medications. States that she is not able to control BMs. Denies any
abdominal pain. Denies any shortness of breath. Confirms that she understands that she started Synthroid.
Objective Data
-
Labs:
Laboratory Results
10/26/24
05:59
WBC 7.0
Hgb 13.4
Hct 39.4
Plt Count 195
Sodium 133 L
Potassium 4.3
Chloride 93 L
Carbon Dioxide 38 H
BUN 13
Creatinine 0.7
Glucose 83
Calcium 8.4
Total Bilirubin 1.0
AST 66 H
ALT 67 H
Alkaline Phosphatase 75
Vital Signs:
Vital Signs
Temp Pulse Resp BP Pulse Ox
97.6 F 53 12 100/59 97
10/26/24 07:00 10/26/24 07:00 10/26/24 07:00 10/26/24 07:00 10/26/24 07:00
I&O
10/25/24 10/26/24 10/27/24
06:59 06:59 06:59
Intake Total 480 / 480 480 / 480
Output Total 700 / 700 500 / 500
Balance -220 / -220 -20 / -20
Review of Systems
-
Unable to obtain full review of systems at this time due to: Dementia and Other (Hearing aids not in)
History Source: Patient
Abdomen/GI: Reports Diarrhea
Physical Exam
-
General: Other (appears elderly, frail)
HEENT: Normocephalic, Atraumatic, Anicteric and Oxygen (O2 NC)
Respiratory: Non Labored Respirations
Cardiac: Regular Rhythm
GI: Soft, Nontender and Nondistended
Musculoskeletal: No Edema
Skin: Warm and Dry
Neuro: Awake and Alert
Psych: Calm and Confused
Data Reviewed
-
Total Time Spent with Patient (in minutes): 10
Critical Care Time (in minutes): 30
Labs: Labs Reviewed by me
[2024-10-26 11:00] VITALS: BP 90/63
--- NOTE | 2024-10-26 11:42 | W.DCSUMMARY ---
Documented by User: Jessica Gonzalez MD, Resident 10/26/24 11:51
Discharge Summary
Discharge Data
Date of Admission: 10/24/24
Date of Discharge: 10/26/24
Total time spent discharging patient (in min): 30
-
Pending Results: No
Hospital Course
Discharging Physician : Jeff Kan; Jessica Gonzalez
Disposition : to SNF ([facility])
Primary care physician : Kobe Shelton DO
Principal Discharge diagnosis : constipation in s/o uncontrolled hypothyroidism
Chronic Discharge diagnosis : asthma, osteoporosis, HLD, HTN, GCA, RA, dementia, MDD, stercoral colitis, gout, GERD
Hospital Course :
Patient presented to the ED on 10/24/2024 due to worsening of chronic abdominal pain, along with nausea, reduced appetite, and recent syncopal episode. On admission she was found to have hyponatremia (Na 129) and had abdominal CT scan demonstrating
moderate diffuse colonic stool burden. Patient had slightly elevated AST and ALT on admission. Patient's last BM was a week ago. Lives at [facility], has not been enjoying food at their and has not been eating much for the last few weeks.
Patient afebrile without leukocytosis. Low concern for any infectious etiology of abdominal pain. UA negative. CT A/P negative for any signs of infectious source.
Noted that hypothyroidism was listed as a problem for patient, but no levothyroxine was listed on home medication list. Called Bj Soto RN to discuss; discovered that patient had not taken levothyroxine for at least the past year. TSH
levels were checked � TSH on 10/25/2024 was 68.7. Prior TSH on 07/04/2023 was 10.10. Patient's constipation, abdominal pain likely secondary to uncontrolled hypothyroidism. Patient was started on 25 mcg daily of levothyroxine. Plan to recheck TSH
levels in 4 to 6 weeks, follow up with PCP, adjust dosing of levothyroxine as necessary. To be continued on levothyroxine. To also be continued on miralax and senna to address constipation while TSH levels normalize. Patient was given laxative
bowel regimen while inpatient and had multiple loose bowel movements on 10/25 and 10/26. Abdominal pain improved.
Other:
Transaminitis likely secondary to a combination of hypothyroidism and WARD/hepatic steatosis (lipid panel this admission demonstrated elevated cholesterol 279, triglycerides 216, LDL 141).
Patient's sodium improved with fluids and p.o. intake. Uptrended to 133-134 at time of discharge.
Due to concern for syncopal episode at SNF, orthostatic vitals were taken. Patient without orthostatic hypotension. Given compression stockings for prophylaxis.
Important imaging findings : N/A
Procedure findings : N/A
Discharge Plan
-
Patient Disposition: Detention/SNF
Discharge Diagnosis/Procedures: constipation in s/o uncontrolled hypothyroidism
Condition: Fair
Diet: Low Cholesterol
Activity: With assistance
Driving Restrictions: As prior to admission
Bathing Restrictions: None
Others Tests: Check TSH levels in 4-6 weeks
Referrals:
Kobe Shelton DO [Family Provider, Family Practice] - in one to two weeks
Additional Discharge Medication Instructions: START taking levothyroxine 25mcg daily (for your hypothyroidism).
Get bloodwork in 4-6 weeks to check your TSH levels and discuss with your primary care doctor.
Take miralax & senna daily to prevent constipation.
Continue the rest of your medications as prior.
Prescriptions:
New
levothyroxine 25 mcg Tablet
25 mcg PO DAILY @ 0600 60 Days Qty: 60 0RF
sennosides [senna] 8.6 mg tablet
8.6 mg PO DAILY 60 Days Qty: 60 0RF
Continued
magnesium hydroxide [Milk of Magnesia] 400 mg/5 mL Suspension
30 ml PO [id number] PRN (Reason: if no by 3rd day)
bisacodyl 10 mg Suppository
10 mg MI [id number] PRN (Reason: if no bm aftr mom)
Actemra 162 mg/0.9 mL Syringe
162 mg SC TH
Patient Comments:
left eye
divalproex [Depakote Sprinkles] 125 mg Capsule, Delayed Rel Sprinkle
125 mg PO BID
gabapentin 100 mg Capsule
200 mg PO BID Qty: 0 0RF
calcium carbonate-vitamin D3 [Calcium 600 + D(3)] 600 mg-10 mcg (400 unit) Tablet
1 tab PO DAILY
baclofen 5 mg Tablet
5 mg PO BID
acetaminophen [Tylenol] 325 mg tablet
650 mg PO Q6HPRN PRN (Reason: mild pain/temp>100.4)
amlodipine [Norvasc] 5 mg Tablet
5 mg PO DAILY
pantoprazole [Protonix] 20 mg Tablet,Delayed Release (Dr/Ec)
20 mg PO DAILY
mirtazapine 30 mg Tablet
30 mg PO HS
bismuth subsalicylate [Pepto-Bismol] 262 mg/15 mL Suspension
524 mg PO Q3HPRN PRN (Reason: stoamch issuses)
albuterol sulfate 90 mcg/actuation Hfa Aerosol Inhaler
2 puff INHALATION R Q6HPRN PRN (Reason: sob)
cholecalciferol (vitamin D3) [Vitamin D3] 25 mcg (1,000 unit) Tablet
25 mcg PO DAILY
Biotene Moisturizing Mouth [place],Non-Aerosol
2 applic MUCOUS MEMBRANE TIDPRN PRN (Reason: dry mouth)
Preparation H (Filippo Hernández) 20 % Pads, Medicated
1 pad topical TID
polyethylene glycol 3350 [HealthyLax] 17 gram powder in packet
17 g PO DAILY
lidocaine 4 % Cream
1 applic TOPICAL QIDPRN PRN (Reason: lower back)
Discharge Orders:
Discharge Patient (As Directed); Ordered 10/26/24
Ordered By: Jessica Gonzalez
Discharge Date and Time
Print Language: GABONESE

Documented by User: Jeff Kan DO 10/26/24 12:07
Discharge Summary
Discharge Data
Date of Admission: 10/24/24
Date of Discharge: 10/26/24
Total time spent discharging patient (in min): 31
Discharge Plan
-
Patient Disposition: Detention/SNF
Discharge Diagnosis/Procedures: constipation in s/o uncontrolled hypothyroidism
Condition: Fair
Diet: Low Cholesterol
Activity: With assistance
Driving Restrictions: As prior to admission
Bathing Restrictions: None
Others Tests: Check TSH levels in 4-6 weeks
Referrals:
Kobe Shelton DO [Family Provider, Family Practice] - in one to two weeks
Additional Discharge Medication Instructions: START taking levothyroxine 25mcg daily (for your hypothyroidism).
Get bloodwork in 4-6 weeks to check your TSH levels and discuss with your primary care doctor.
Take miralax & senna daily to prevent constipation.
Continue the rest of your medications as prior.
Prescriptions:
New
levothyroxine 25 mcg Tablet
25 mcg PO DAILY @ 0600 60 Days Qty: 60 0RF
sennosides [senna] 8.6 mg tablet
8.6 mg PO DAILY 60 Days Qty: 60 0RF
Continued
magnesium hydroxide [Milk of Magnesia] 400 mg/5 mL Suspension
30 ml PO [id number] PRN (Reason: if no by 3rd day)
bisacodyl 10 mg Suppository
10 mg MI [id number] PRN (Reason: if no bm aftr mom)
Actemra 162 mg/0.9 mL Syringe
162 mg SC TH
Patient Comments:
left eye
divalproex [Depakote Sprinkles] 125 mg Capsule, Delayed Rel Sprinkle
125 mg PO BID
gabapentin 100 mg Capsule
200 mg PO BID Qty: 0 0RF
calcium carbonate-vitamin D3 [Calcium 600 + D(3)] 600 mg-10 mcg (400 unit) Tablet
1 tab PO DAILY
baclofen 5 mg Tablet
5 mg PO BID
acetaminophen [Tylenol] 325 mg tablet
650 mg PO Q6HPRN PRN (Reason: mild pain/temp>100.4)
amlodipine [Norvasc] 5 mg Tablet
5 mg PO DAILY
pantoprazole [Protonix] 20 mg Tablet,Delayed Release (Dr/Ec)
20 mg PO DAILY
mirtazapine 30 mg Tablet
30 mg PO HS
bismuth subsalicylate [Pepto-Bismol] 262 mg/15 mL Suspension
524 mg PO Q3HPRN PRN (Reason: stoamch issuses)
albuterol sulfate 90 mcg/actuation Hfa Aerosol Inhaler
2 puff INHALATION R Q6HPRN PRN (Reason: sob)
cholecalciferol (vitamin D3) [Vitamin D3] 25 mcg (1,000 unit) Tablet
25 mcg PO DAILY
Biotene Moisturizing Mouth [place],Non-Aerosol
2 applic MUCOUS MEMBRANE TIDPRN PRN (Reason: dry mouth)
Preparation H (Filippo Hernández) 20 % Pads, Medicated
1 pad topical TID
polyethylene glycol 3350 [HealthyLax] 17 gram powder in packet
17 g PO DAILY
lidocaine 4 % Cream
1 applic TOPICAL QIDPRN PRN (Reason: lower back)
Discharge Orders:
Discharge Patient (As Directed); Ordered 10/26/24
Ordered By: Jessica Gonzalez
Discharge Date and Time
Print Language: GABONESE
--- NOTE | 2024-10-26 11:43 | CM ---
Per team, stable for dc.
Spoke with Omid/Bj Madsenor and Nursing roll shop supervisor at [phone] confirming pt is LTC there and can return.
Will request 3pm transport.
Left VM for son James at [phone] to update of a dc happening today and CM contact info.
--- NOTE | 2024-10-26 11:44 | CM ---
Bj Soto:
Report # [phone]
[2024-10-26 15:00] VITALS: BP 95/58
== END 2024-10-26 15:48 | DRG 644 ==
LOC: 4 WEST ACU 20:24
PROVIDERS: Registered Nurse; ADMITTING PHYSICIAN Hospitalist; ATTENDING PHYSICIAN Internal Medicine; EMERGENCY PHYSICIAN Emergency Medicine; FAMILY PHYSICIAN Student in an Organized Health Care Education/Training Program
DX: E03.9 Hypothyroidism, unspecified (principal); E87.1 Hypo-osmolality and hyponatremia; F03.93 Unspecified dementia, unspecified severity, with mood disturbance; F03.94 Unspecified dementia, unspecified severity, with anxiety; E87.3 Alkalosis; Z66 Do not resuscitate; K59.09 Other constipation; I10 Essential (primary) hypertension; J45.909 Unspecified asthma, uncomplicated; K21.9 Gastro-esophageal reflux disease without esophagitis; E78.00 Pure hypercholesterolemia, unspecified; R74.01 Elevation of levels of liver transaminase levels; M10.9 Gout, unspecified; K76.0 Fatty (change of) liver, not elsewhere classified; M81.0 Age-related osteoporosis without current pathological fracture; M06.9 Rheumatoid arthritis, unspecified; F32.A Depression, unspecified; M31.6 Other giant cell arteritis; H54.61 Unqualified visual loss, right eye, normal vision left eye; D72.819 Decreased white blood cell count, unspecified; G89.29 Other chronic pain; E86.0 Dehydration; Z88.0 Allergy status to penicillin; Z79.890 Hormone replacement therapy; Z79.899 Other long term (current) drug therapy; Z87.891 Personal history of nicotine dependence
CPT/HCPCS: 74177; 80053; 80061; 81003; 81015; 82962; 83690; 84439; 84443; 84484; 85025; 93005; 96360; 97162; 97530; 99285; Q9967

== ENCOUNTER 2024-10-30 13:27 | Inpatient (IN) | payer MEDICARE, OTHER, SELFPAY ==
[2024-10-30] VITALS (14 sets, daily range): BP systolic 95–144; BP diastolic 53–68; BMI 17.9
--- NOTE | 2024-10-30 09:35 | ED.CVA ---
History of Present Illness
General
Chief Complaint: CVA/TIA Symptoms
Source: ambulance crew
Exam Limitations: altered mental status and dementia
Time Seen by Provider: 10/30/24 09:32
Nursing documentation reviewed up to this point in time: agreed with
Onset of Stroke Symptoms
Onset of symptoms known: Yes
Date of onset of symptoms: 10/30/24
Time of onset of symptoms: 08:45
History of Present Illness
History of Present Illness:
Note:
CHIEF COMPLAINT(S)
Unresponsiveness and altered mental status in an 84-year-old female with dementia.
HISTORY OF PRESENT ILLNESS
The patient is an 84-year-old female with a known history of dementia, who was reported to be unresponsive. Her usual caretakers noted that she was acting normally while sitting in her wheelchair earlier today. About an hour before presentation, she
became non-responsive, which is uncharacteristic of her usual behavior despite her dementia. Attempts to elicit a response, such as moving her eyelids, showed voluntary resistance as she closed them. The patient has a history of syncope, raising the
possibility that she might have had an episode preceding her current state. It is notable that the patient is not on anticoagulant therapy.
CHRONIC MEDICAL CONDITIONS SIGNIFICANTLY AFFECTING CARE
Dementia and history of syncope.
PHYSICAL EXAM
General: Unresponsive, unable to engage in conversation, non-verbal but exhibits voluntary eyelid movement when examined.
Skin: Warm, dry. Bruising observed but not specified in detail.
Head: Normocephalic, atraumatic.
Neck: Supple, trachea midline.
Eye Ears, nose, mouth, and throat: Oral mucosa moist.
Cardiovascular: Normal peripheral perfusion, no edema.
Respiratory: Respirations are non-labored.
Gastrointestinal: Abdomen nondistended.
Back: Normal range of motion, normal alignment.
Musculoskeletal: globally weak, no signs of trauma
Neurological: Unresponsive to verbal stimuli, voluntary eyelid movement noted. not following commands
Psychiatric: Non-responsive.
PROBLEM LIST
Acute:
- Unresponsiveness
- Altered mental status
Chronic:
- Dementia
- Syncope
PLAN
- Initiate further diagnostic workup including blood gas analysis, complete blood count review, and additional investigations to determine the cause of the current episode.
- Consider monitoring for potential syncope-related events.
DIFFERENTIAL DIAGNOSIS
The Differential Diagnosis includes, in no particular order and is not limited to:
1. Stroke
2. Transient ischemic attack
3. Seizure
4. Syncope
5. Medication-related altered mental status
6. Sepsis
7. Delirium
8. Hypoglycemia
9. Electrolyte imbalance
10. Intracranial hemorrhage
EKG
My independent EKG interpretation is as follows:
- Time of EKG: Not specified
- Rhythm: Sinus bradycardia
- Heart Rate: 56 bpm
- LA Interval: Normal
- QRS Duration: Normal
- QT Interval: Normal
- [place]: Left axis deviation
- Abnormalities: None indicated
- Comparison: No change from EKG on October 24, 2024
EKG
No Content
CARE-UPDATE
10/30/24 - 13:37
The patient exhibits decreased responsiveness, possibly due to toxicological encephalopathy or hypothyroidism, though myxedema coma is unlikely given the stability. The decision has been made to admit the patient to the hospital for further
evaluation. Dr. Larry, neurology independent marketing consultant, assessed the situation and determined that TNK administration is not indicated at this time.
Disposition:
SUMMARY OF ENCOUNTER
The patient, an 84-year-old female with a known history of dementia, was seen in the emergency department due to an episode of unresponsiveness and altered mental status. The episode was noted by her caretakers who reported her becoming
non-responsive to her usual stimuli, which was atypical compared to her established dementia-related behavior. Due to her history of syncope and lack of anticoagulation therapy, a broad differential was considered, including potential stroke,
transient ischemic attack, seizure, and metabolic imbalances. Management strategies in the emergency department involved initiating diagnostic studies, including blood gas analysis and complete blood count review. Neurological consultation by
Laron ruled out the need for TNK (tenecteplase) administration.
DISPOSITION
Admit.
ASSESSMENT
Acute unresponsiveness in a patient with a background of dementia, potentially secondary to toxicological encephalopathy or hypothyroidism. Differential diagnosis included stroke, transient ischemic attack, seizure, syncope, and other metabolic
causes.
MANAGEMENT OF THE PATIENTS CARE WAS DISCUSSED WITH
Dr. Larry, neurology independent marketing consultant, assessed the need for TNK and provided input regarding the patients neurological stability.
PLAN
The plan is to conduct a thorough diagnostic workup to establish the etiology of the altered mental status, with focused monitoring for syncope-related episodes and other potential causes based on the differential diagnosis.
INDEPENDENT REVIEW OF LABS AND INTERPRETATION OF TESTS
My independent EKG interpretation is as follows: Sinus bradycardia with a heart rate of 56 bpm, left-axis deviation, and no change from the EKG dated October 24, 2024.
MEDICAL DECISION MAKING
1. Number and Complexity of Problems Addressed:
Chronic conditions affecting care include a history of dementia and syncope. Differential diagnoses considered included stroke, transient ischemic attack, seizure, syncope, medication-related altered mental status, sepsis, delirium, hypoglycemia,
electrolyte imbalance, and intracranial hemorrhage.
2. Data:
Category 1:
Tests ordered included blood gas analysis and complete blood count. My independent interpretation of EKG revealed sinus bradycardia and left-axis deviation consistent with prior findings.
Category 3:
Discussion of management with Dr. Larry, neurology independent marketing consultant, regarding the patients neurological status and the decision against TNK administration.
DIAGNOSIS
- Altered mental status, unspecified (ICD-10 R41.82)
- Dementia without behavioral disturbance, unspecified severity (ICD-10 F03.90)
- Syncope and collapse (ICD-10 R55)
Past History
Past History
ED Past Medical History: Asthma, Hypercholesterolemia, Hypothyroidism, Other (Dementia, Constipation, Bowel obstruction, Spinal compression fractures, Osteoporosis) and Other (GCA, RA, gout, major depressive disorder, blindness right eye)
ED Past Surgical History: None
Social History
Tobacco: Former smoker
Alcohol: None
Drug: None
Personal:
Living: alf ([facility])
Employment: Not employed
Phy Exam
Physical Exam
Physical Exam:
.
Course
Orders/Labs/Results
Orders:
Orders
10/30/24 09:32
Electrocardiogram (*1) Stat
Reason for Study: Other
Other Reason for Exam: neuro symptoms
CT HEAD STROKE ALERT W/o Cont Urgent
Comment:
Reason For Exam: global weakness, unresponsive
CT HEAD/NECK ANG STROKE ALERT Urgent
Comment:
Reason For Exam: global weakness, unresponsive
Cardiac Monitoring- Treatment ONCE
EKG- Treatment ONCE
Pulse Ox/cont/shift [RESP] Stat
Quantity: 1
10/30/24 09:43
Complete Blood Count/With Diff Urgent
Erythrocyte Sed Rate Urgent
Comment: ADD ON
Ferritin Urgent
Comment: ADD ON
Folate Urgent
Comment: ADD ON
Free T4 Urgent
PTT Urgent
Prothrombin Time Urgent
TSH Reflex To Free T4 Urgent
Comment: ADD ON
Vitamin B12 Urgent
Comment: ADD ON
10/30/24 09:46
Add On- LAB Routine
Tests Added?: folate, ferritin, TSH reflex, B12, ESR
10/30/24 10:01
Valproic Acid Level [Depakane] Urgent
10/30/24 10:08
NEUROLOGY CONSULT Urgent
Consulting Provider: Dylan Larry
Was physician already notified: Yes
Reason for consult: global weakness, cva alert
10/30/24 10:26
Comprehensive Metabolic Panel Urgent
Cortisol, Random Urgent
Comment: ADD ON
10/30/24 10:54
Urinalysis Reflex To Culture Urgent
Date Specimen was Collected: 10/30/24
Time Specimen was Collected: 10:53
Urine Drug Abuse Screen Urgent
Date Specimen was Collected: 10/30/24
Time Specimen was Collected: 10:53
Urine Microscopic Reflex Cult Urgent
Urine Culture Urgent
SHENA Source: U
Specimen Description:
Date Specimen was Collected: 10/30/24
Time Specimen was Collected: 10:53
10/30/24 12:29
Levothyroxine [Levothroid] 25 mcg IV NOW STA
Patient requires IV dosing to begin now?: Yes
Reason to begin IV dosing now:: TSH greater than 10
10/30/24 12:33
Add On- LAB Urgent
Tests Added?: cortisol
10/30/24 12:34
Hydrocortisone Sod Succinate [Solu-Cortef] 50 mg IV NOW STA
Levothyroxine [Levothroid] 75 mcg IV NOW STA
Patient requires IV dosing to begin now?: Yes
Reason to begin IV dosing now:: TSH greater than 10
10/30/24 12:37
Admit/Transfer Patient As Directed
Co-Sign Provider:
Level of Care: Inpatient admission
Assign to:: IMU- Intermediate Care
Physician / Group: Mable Bateman
Diagnosis: myxedema coma
Reason for Hospitalization: myxedema coma
Expected length of stay greater than two midnights?: Yes
ELOS- Estimated Length of Stay in days: 3
I certify the patient meets the requirements for IP care: Yes
PRN Pain Medication Management As Directed
May give lesser potent ordered pain med per pt: Yes
preference::
Protocol:: Medication orders for pain may be administered in a
manner that supports deferring to patient preference
when the pt is:
- Requesting an ordered lesser potent pain medication.
Least to most potent pain medications are defined
as: acetaminophen < NSAID < tramadol < opioids
(morphine, oxycodone, hydromorphone).
- Requesting a lesser dose of the same medication IF
ORDERED.
- Requesting a less intrusive route of administration
if both routes are prescribed by the provider (PO <
IV).
10/30/24 12:39
Code Status As Directed
Resuscitation Status: Do not resuscitate
Reached after discussion with pt or family/Healthcare POA: Yes
10/30/24 12:41
DNR Bracelet Application ONCE
10/30/24 13:00
Flush (0.9% Sodium Chloride) [Flush (Nss)] See Dose Instructions IV PER PROTOCOL
10/30/24 14:00
CefTRIAXone [Rocephin] 1,000 mg IV Q24H
Sterile Water [Sterile Water For Injection] 10 ml IV Q24H
10/30/24 Dinner
NPO
Reason for opting out of Informatics Physician Liaison order writing: Provider Decision
Allow oral meds: No
Allow clear liquids: No
10/31/24 13:00
Thiamine Injection 100 mg IV DAILY
Abnormal Lab Results
10/30/24 10/30/24 10/30/24
09:35 09:43 10:01
WBC 4.6 L 10^3/uL
(4.8-10.8)
RBC 3.73 L 10^6/uL
(4.20-5.40)
Hct 36.2 L %
(37.0-47.0)
MCH 32.4 H pg
(27.0-31.0)
Immature Gran % 0.6 H %
(0-0.5)
Chloride
Carbon Dioxide
BUN
AST
ALT
Vitamin B12 > 1000 H pg/ml
(239931)
TSH (Reflex) 67.80 H uIU/ml
(0.47-4.68)
Free T4 0.14 L ng/dl
(0.78-2.19)
Ur Occult Blood Reflex
Leukocyte Esterase Rfl
Urine WBC (Reflex)
Urine Bacteria (Reflex)
Urine Albumin (Reflex)
Valproic Acid 21.9 L ug/ml
(50.0-120.0)
POC Glucose 114 H mg/dl
(70-99)
10/30/24 10/30/24
10:26 10:54
WBC
RBC
Hct
MCH
Immature Gran %
Chloride 97 L mmol/L
(98-107)
Carbon Dioxide 32 H mmol/L
(22-30)
BUN 18 H mg/dl
(7-17)
AST 77 H U/L
(14-36)
ALT 73 H U/L
(0-35)
Vitamin B12
TSH (Reflex)
Free T4
Ur Occult Blood Reflex 2+ A
(Negative)
Leukocyte Esterase Rfl 2+ A
(Negative)
Urine WBC (Reflex) 50-60 A /HPF
(0-5)
Urine Bacteria (Reflex) Many A
(Negative)
Urine Albumin (Reflex) 2+ A
(Neg - Trace)
Valproic Acid
POC Glucose
10/30/24 09:43
10/30/24 10:26
Vital Signs
Initial and Last Documented VS:
Initial Vital Signs
Temp Pulse Resp BP Pulse Ox
97.9 F 60 13 134/62 98
10/30/24 09:29 10/30/24 09:29 10/30/24 09:29 10/30/24 09:29 10/30/24 09:29
Last Documented Vital Signs
Temp Pulse Resp BP Pulse Ox
97.9 F 51 12 104/66 94
10/30/24 09:29 10/30/24 13:00 10/30/24 13:00 10/30/24 13:00 10/30/24 09:31
*Pulse Oximetry
SaO2: 98
Oxygen Mode of Delivery: Room air
Patient hypoxic: no
*Critical Care Note
Total Time (30-74mins, 75-104mins- exclusive of procedures): 32
comment:
Critical care statement: A total of 32 minutes of critical care time was provided for this patient. This includes management of unstable vital signs, evaluation of the patient at bedside, reviewing the patient's pertinent medical records, discussion
with consultants, review of old EKGs and review of pertinent medical records. This time with separate from time utilized to perform the aforementioned documented procedures
ED Attending Note
-
Portions of this chart may have been created with voice recognition software.� Occasional wrong word or��sound alike� substitutions may have occurred due to the inherent limitations of voice recognition software.
Discharge Plan
Departure
Patient Disposition: Admit
Date of Disposition: 10/30/24
Time of Disposition: 11:17
Admit to: Telemetry
Presentation/result/management discussed w/ accepting MD/DO: Hospitalist
Patient with high blood pressure during this ER visit?: No
Condition: Fair
Discharge Problem:
Acute alteration in mental status, Hypothyroid, Toxic metabolic encephalopathy
Interventions
Interventions:
*Risk Screen - Suicide Last Done: 10/30/24 09:29
*General Assessment Last Done: 10/30/24 09:29
*Neglect/Abuse Screening Last Done: 10/30/24 09:29
*ED- Fall Risk Assessment Last Done: 10/30/24 09:30
*ED COVID-19 Vaccine History Last Done: 10/30/24 09:30
ED- Pulmonary Assessment Last Done: 10/30/24 09:31
ED- Neurological Assessment Last Done: 10/30/24 09:31
ED- Cardiac Assessment Last Done: 10/30/24 09:31
ED Swallowing Screen Last Done: 10/30/24 09:31
[2024-10-30 09:37] LABS: Glucose - Point of Care 114 mg/dl (70-99)
--- NOTE | 2024-10-30 09:47 | CON.NEURO4 ---
Addendum entered and electronically signed by Dylan Larry MD 10/30/24 11:06:
Studies reviewed independently by me.
I have personally examined the patient. I reviewed and agree with the PLASTIC SURGERY MANAGER's Note.
My addenda:
Not awake, alert, or interactive. Maintains eyes open for approximately 1-1/2 seconds before spontaneously slowly closing symmetrically. No acute distress.
Speech: Mute.
Follows no requests w/o difficulty. No tremor.
Extra-ocular movements grossly intact.
Facial movements full and symmetric. Hearing: Unable to assess.
No spontaneous movements bilaterally.
Neck: full ROM.
Chest: no dyspnea
Heart: no JVD
Ext: (-) Clubbing, (-) Cyanosis, (-) Edema
IMPRESSIONS/RECOMMENDATIONS:
Abrupt onset of change in mental status
Not clear that this represents a primary neurological event. Patient most likely is experiencing toxic metabolic encephalopathy
Check urgent CT of head and CTA head and neck, completed and do not show obvious abnormalities producing symptoms
Check blood work potential metabolic causes
If no obvious cause for symptoms beyond known elevated TSH, would check EEG and potentially spinal tap
Follow valproic acid level
Will continue to follow pending results.
Original Note:
Documented by User: Darya Anderson NP 10/30/24 10:26
Consultation - Neurology 4
-
CONSULTING PHYSICIAN: Dylan Larry MD
REFERRING PHYSICIAN: ER/Dr. Pang
DICTATED BY: CULLEN Villanueva
DATE/TIME OF REQUEST: 10/30/24
DATE/TIME OF CONSULTATION: 10/30/24
Reason for Consultation: Stroke Alert
History of Present Illness:
This is an 84-year-old female who has presented to the hospital with report of unresponsiveness. Patient was recently hospitalized here from 10/24/24-10/26/24 with abdominal pain and syncope and was found to be hyponatremic, TSH was significantly
abnormal, and liver enzymes were elevated. At baseline she is legally blind and uses a wheelchair for ambulation. This morning she was sitting in her wheelchair eating breakfast at her NH when staff report that she suddenly slumped over and became
unresponsive. EMS were called who activated a stroke alert. CT head and CTA head/neck were obtained and are negative for any acute abnormalities. NIHSS is 21. She is not a candidate for TNK/IAT due to examination more supportive of a metabolic
disturbance producing altered mental status and no LVO, low concern for stroke. She is taking Depakote, it appears for mental health reasons, no evidence of a history of seizure in the medical record.
Past Medical History: Dementia, giant cell arteritis, blind L eye, HTN, HLD, COPD, asthma, depression, anxiety, dementia, rheumatoid arthritis, multiple thoracic compression fractures due to chronic steroid use
Surgical History: R knee surgery.
Family History: Mother- from a stroke age 47.
Social History: Former smoker, 1 PPD for 20 years. No alcohol or illicit drug use.
Allergies: Penicillins, nickel.
Home Medications: See below.
Review of Symptoms:
Per the HPI. I am unable to obtain a complete review of systems�because of patient's inability to provide history.
Physical Exam:
The patient is afebrile, abdomen is nondistended, breathing is unlabored, skin is warm and dry, no edema.
NIH Stroke Scale:
I performed the NIH stroke scale on the patient on 10/30/24 at 0940. The patient scored 21 points on the NIH stroke scale assessment, which were assigned as follows: See below.
Neurologic Examination:
The patient is obtunded, opens eyes briefly to pain/loud voice but does not speak. She is unable to follow commands and answer questions appropriately. She is mute. On cranial nerve assessment, pupils are 3 mm bilateral, round and reactive to light
and accommodation. MILAGROS visual childers. Mildly positive dolls eyes. There is no apparent facial asymmetry. MILAGROS hearing. MILAGROS tongue/palate. Flicker withdrawal in all four extremities to pain, not moving spontaneously. MILAGROS drift. Slight tremor of the
lower jaw, possibly shivering. Deep tendon reflexes are 2+ bilateral upper and lower extremities and Babinski is absent bilaterally. MILAGROS sensation, coordination, double simultaneous..
Lab Results: See below.
Neuro Imaging:
1. CT Head 10/30/24: No acute intracranial pathology. Moderate atrophy. Stable. ASPECT score: 10.
2. CTA head/neck 10/30/24: final read is pending.
Differentials for the patient's presentation include:
1. Change in mental status; etiology is likely toxic metabolic encephalopathy. CT head is negative for hemorrhage. Small ischemic stroke is possible but much less likely.
Patient has the following risk factors for their symptoms: Abnormal labs days ago, age, Depakote usage
IV Tenecteplase/IAT candidacy: She is not a candidate for TNK/IAT due to examination more supportive of a metabolic disturbance producing altered mental status and no LVO, low concern for stroke.
Recommendations:
-Checking blood work for metabolic abnormalities.
-UDS pending.
-Valproic acid level pending.
-If no clear metabolic source of symptoms is found, will pursue further neurological workup.
Discussed patient care with: Dr. Larry, the patient
Vital Signs and Labs
-
Vital Signs and Labs:
Vital Signs
Temp Pulse Resp BP Pulse Ox
97.9 F 56 10 115/60 98
10/30/24 09:29 10/30/24 10:00 10/30/24 10:00 10/30/24 10:00 10/30/24 09:29
Lab Results
10/30/24 09:43
PT 13.6 Sec (11.4-14.6) 10/30/24 09:43
INR 0.99 10/30/24 09:43
APTT 27.9 Sec (23.4-35.0) 10/30/24 09:43
Sodium Cancelled 10/30/24 09:43
Potassium Cancelled 10/30/24 09:43
BUN Cancelled 10/30/24 09:43
Glucose Cancelled 10/30/24 09:43
Calcium Cancelled 10/30/24 09:43
Medications
-
Home Medications
�Medication �Instructions �Recorded
bisacodyl 10 mg rectal suppository 10 mg NJ [id number] PRN if no bm aftr 07/03/23
mom
divalproex 125 mg capsule,delayed 125 mg PO BID Neurological 07/03/23
release sprinkle (Depakote Condition
Sprinkles)
magnesium hydroxide 400 mg/5 mL 30 ml PO [id number] PRN if no by 3rd 07/03/23
oral suspension (Milk of Magnesia) day
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
subcutaneous syringe (Actemra)
gabapentin 100 mg capsule 200 mg (2 x 100 mg) PO BID 07/10/23
Neurological Condition #0 caps
baclofen 5 mg tablet 5 mg PO BID Muscle Spasms 07/25/23
calcium 600 mg (as 1 tab PO DAILY Supplement 07/25/23
carbonate)-vitamin D3 10 mcg (400
unit) tablet (Calcium 600 + D(3))
acetaminophen 325 mg tablet 650 mg PO Q6HPRN PRN mild 07/27/23
(Tylenol) pain/temp>100.4
albuterol sulfate 90 mcg/actuation 2 puff inhalation R Q6HPRN PRN sob 10/24/24
aerosol inhaler
amlodipine 5 mg tablet (Norvasc) 5 mg PO DAILY Blood Pressure 10/24/24
bismuth subsalicylate 262 mg/15 mL 524 mg PO Q3HPRN PRN stoamch 10/24/24
oral suspension (Pepto-Bismol) issuses
cholecalciferol (vitamin D3) 25 25 mcg PO DAILY Supplement 10/24/24
mcg (1,000 unit) tablet (Vitamin
D3)
lidocaine 4 % topical cream 1 applic topical QIDPRN PRN lower 10/24/24
back
mirtazapine 30 mg tablet 30 mg PO HS Sleep 10/24/24
pantoprazole 20 mg tablet,delayed 20 mg PO DAILY Gastrointestinal 10/24/24
release (Protonix) Issue
polyethylene glycol 3350 17 gram 17 g PO DAILY Constipation 10/24/24
oral powder packet (HealthyLax)
saliva stimulant comb. no.3 2 spray mucous membrane TIDPRN PRN 10/24/24
(Biotene Moisturizing Mouth dry mouth
mucosal spray)
witch tia 20 % topical pads 1 pad topical TID after each bm 10/24/24
(Preparation H (Witch Tia))
levothyroxine 25 mcg tablet 25 mcg PO DAILY @ 0600 hypothyroid 10/26/24
2 months #60 tabs
sennosides 8.6 mg tablet (senna) 8.6 mg PO DAILY 2 months #60 tabs 10/26/24
NIH Stroke Score
Subsequent NIH Scale
Date of Subsequent NIH Scale: 10/30/24
Time of Subsequent NIH Scale: 09:40
NIH Stroke Score
Level of Consciousness: 2 - Obtunded
LOC Questions: 2-Neither correct
LOC Commands: 2-Performs neither correctly
Best Horizontal Gaze: 0-Normal
Visual Childers: 0=Normal, no visual loss
Facial Palsy: 0=Normal, symmetrical
Motor - Right Arm: 3=None vs. gravity
Motor - Left Arm: 3=None vs. gravity
Motor - Right Le-None vs. gravity
Motor - Left Le-None vs. gravity
Limb Ataxia: UN-Amputation/jointfusion
Sensation: 0-Normal
Best Language: 3-Mute/global aphasia
Dysarthria: UN-Intubated, other
Extinction and Inattention: 0-No abnormality
NIH Total Score:: 21
Modified Chase (mRS) Score
Modified Chase Scale (mRS): Severe disability. Requires constant nursing care.
Score: 5
Alteplase Contraindication
Inclusion and Exclusion criteria reviewed: Yes

Documented by User: Dylan Larry MD 10/30/24 10:53
NIH Stroke Score
NIH Stroke Score
NIH Total Score:: 21
Modified Joe (mRS) Score
Score: 5
[2024-10-30 10:00] LABS: INR 0.99; PT 13.6 Sec (11.4-14.6)
[2024-10-30 10:01] LABS: APTT 27.9 Sec (23.4-35.0)
[2024-10-30 10:06] LABS: Hematocrit 36.2 % (37.0-47.0); Hemoglobin 12.1 g/dL (12.0-16.0); Mean Corp Hgb Conc. 33.4 g/dL (33.0-37.0); Mean Corpuscular Volume 97.1 fL (81.0-99.0); Nucleated Red Blood Cells % 0 %; Platelet Count 184 10^3/uL (130-400); Red Cell Dist. Width 14.2 % (11.5-14.5)
[2024-10-30 10:39] LABS: Depakane 21.9 ug/ml (50.0-120.0)
[2024-10-30 10:50] LABS: ALT (SGPT) 73 U/L (0-35); AST (SGOT) 77 U/L (14-36); Albumin 4.5 g/dl (3.5-5.0); Alkaline Phosphatase 62 U/L (38-126); Blood Urea Nitrogen 18 mg/dl (7-17); Calcium 9.4 mg/dl (8.4-10.2); Carbon Dioxide 32 mmol/L (22-30); Chloride 97 mmol/L (98-107); Estimated Creatinine Clearance 36 ml/min; Glucose 87 mg/dl (70-99); Potassium 4.2 mmol/L (3.5-5.1); Sodium 135 mmol/L (135-145); Total Protein 6.8 g/dl (6.3-8.2); eGFR > 60.00
[2024-10-30 10:53] LABS: Ferritin 52.0 ng/ml (11.1-264.0)
[2024-10-30 11:16] LABS: Urine Character Cloudy (Clear)
[2024-10-30 11:29] LABS: Urine Red Blood Cell 0-2 /HPF (0-2); Urine White Cell 50-60 /HPF (0-5)
--- NOTE | 2024-10-30 12:09 | HPS.HSE ---
Family Physician
-
Family Physician: Kobe Shelton,
Chief Complaint
-
confusion
History of Present Illness
Ms. Hiwot Pacheco is a 84 yo woman with hx GCA, RA, asthma, dementia, anxiety/depression, HLD, HTN, GERD, blindness right eye, recent admission 10/24-10/26 for constipation in setting of hypothyroidism (started on Synthroid) presents with episode
of acute confusion. She was sitting in wheelchair eating breakfast at [place] when staff noticed she suddenly slumped over.
On my exam today patient is able to open eyes slightly and tell me that she has asthma. She denies pain. She cannot tell me when she is in the hospital.
Medical History
Past Medical History
Past Medical History: Reports Other (giant cell arteritis, rheumatoid arthritis, asthma, hypothyroidism, dementia, anxiety/depression, spinal compression fractures, osteoporosis, hyperlipidemia, hypertension, GERD, severe constipation, gout,
blindness in the right eye)
Past Surgical History: Reports Other (Tonsillectomy 1971 left tympanic membrane repair Bilateral oophorectomy Left foot unknown operation)
Social History
Tobacco: Non-smoker
Alcohol: None
Drug: None
Family History
Family History: Not pertinent
Allergies / Home Medications
Allergies reflects when Allergies were last updated in [facility].
Home Medications with original date entered in [facility]
Allergy/Medication List:
Allergies
Allergy/AdvReac Type Severity Reaction Status Date / Time
nickel Allergy Rash Verified 10/30/24 09:33
Penicillins Allergy Rash Verified 10/30/24 09:33
Home Medications
bisacodyl 10 mg rectal suppository 10 mg SD [id number] PRN if no bm aftr mom 07/03/23
divalproex 125 mg capsule,delayed release sprinkle (Depakote Sprinkles) 125 mg PO BID Neurological Condition 07/03/23
magnesium hydroxide 400 mg/5 mL oral suspension (Milk of Magnesia) 30 ml PO [id number] PRN if no by 3rd day 07/03/23
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
gabapentin 100 mg capsule 200 mg (2 x 100 mg) PO BID Neurological Condition #0 caps 07/10/23
baclofen 5 mg tablet 5 mg PO BID Muscle Spasms 07/25/23
calcium 600 mg (as carbonate)-vitamin D3 10 mcg (400 unit) tablet (Calcium 600 + D(3)) 1 tab PO DAILY Supplement 07/25/23
acetaminophen 325 mg tablet (Tylenol) 650 mg PO Q6HPRN PRN mild pain/temp>100.4 07/27/23
albuterol sulfate 90 mcg/actuation aerosol inhaler 2 puff inhalation R Q6HPRN PRN sob 10/24/24
amlodipine 5 mg tablet (Norvasc) 5 mg PO DAILY Blood Pressure 10/24/24
bismuth subsalicylate 262 mg/15 mL oral suspension (Pepto-Bismol) 524 mg PO Q3HPRN PRN stoamch issuses 10/24/24
cholecalciferol (vitamin D3) 25 mcg (1,000 unit) tablet (Vitamin D3) 25 mcg PO DAILY Supplement 10/24/24
lidocaine 4 % topical cream 1 applic topical QIDPRN PRN lower back 10/24/24
mirtazapine 30 mg tablet 30 mg PO HS Sleep 10/24/24
pantoprazole 20 mg tablet,delayed release (Protonix) 20 mg PO DAILY Gastrointestinal Issue 10/24/24
polyethylene glycol 3350 17 gram oral powder packet (HealthyLax) 17 g PO DAILY Constipation 10/24/24
saliva stimulant comb. no.3 (Biotene Moisturizing Mouth mucosal spray) 2 spray mucous membrane TIDPRN PRN dry mouth 10/24/24
witch betty 20 % topical pads (Preparation H (Witch Betty)) 1 pad topical TID after each bm 10/24/24
levothyroxine 25 mcg tablet 25 mcg PO DAILY @ 0600 hypothyroid 2 months #60 tabs 10/26/24
sennosides 8.6 mg tablet (senna) 8.6 mg PO DAILY 2 months #60 tabs 10/26/24
Review of Systems
-
Unable to obtain full review of systems at this time due to: Patient Non-verbal
History Source: Patient
A 12 point ROS was completed and negative except as noted: Yes
Physical Exam
Vital Signs
Vital Signs
Temp Pulse Resp BP Pulse Ox
97.9 F 53 10 144/66 94
10/30/24 09:29 10/30/24 11:30 10/30/24 11:30 10/30/24 11:00 10/30/24 09:31
Physical Exam
General: Other (in no acute distress, lethargic, opens eyes slightly to tell me she is in the hospital )
HEENT: PERRLA
Respiratory: Clear; No Wheezes
Cardiac: S1/S2 and Regular Rhythm
GI: Soft and Non Tender
Musculoskeletal: No Edema
Skin: Warm and Dry; No Rash
Neuro: Other (cannot follow commands 2/2 somnolence ); No Awake or Alert
Psych: Calm
Laboratory Results
-
10/30/24 09:43
10/30/24 10:26
Laboratory Results
PT 13.6 Sec (11.4-14.6) 10/30/24 09:43
INR 0.99 10/30/24 09:43
APTT 27.9 Sec (23.4-35.0) 10/30/24 09:43
Total Bilirubin 0.8 mg/dl (0.2-1.3) 10/30/24 10:26
AST 77 U/L (14-36) H 10/30/24 10:26
ALT 73 U/L (0-35) H 10/30/24 10:26
Alkaline Phosphatase 62 U/L (38-126) 10/30/24 10:26
Data Reviewed
-
Diagnostic Radiology: Report Reviewed by me
Lab Data: Labs Reviewed by me
Impression/Plan
-
Ms. Hiwot Pacheco is a 84 yo woman with hx GCA, RA, asthma, dementia, anxiety/depression, HLD, HTN, GERD, blindness right eye, recent admission 10/24-10/26 for constipation in setting of hypothyroidism (started on Synthroid) presents with episode
of acute confusion. She was sitting in wheelchair eating breakfast at [place] when staff noticed she suddenly slumped over. Patient was brought to the ER as a stroke alert
Triage VS: T 97.9, P 60, BP 134/62, RR 13, SpO2 94% RA
LABS: WBC 5.6, Hg 12.1, PLT 184, Na 135, K+ 5.2, Cl 97, CO2 32, BUN 18, Cr 0.8, Glucose 87, t. Bili 0.8, AST 77, ALT 73, AlkP hos 62
TSH 67.8, free T4 0.14
UA with 50-[address]
IMPRESSION:
No acute intracranial pathology.
Moderate atrophy. Stable
HEAD/NECK CTA
IMPRESSION: No acute vascular pathology. No M1 and M2 occlusion.
Less than 50% stenosis of the distal right common carotid artery and proximal right internal carotid artery
MAR: IV Thiamine
Acute change in Mental Status
Toxic Metabolic Encephalopathy
Hypothyroidism - recently started on T4 replacement with TSH 67.8
-patient doesn't meet criteria for Myxedema Coma as she is not hypothermic, BP stable, sodium and electrolytes stable. I discussed the case with Dr. Miguel and given patient's significant lethargy, he suggest treating with higher dose IV
Synthroid, 75 mcg daily. It is ordered with 50mg Hydrocortisone until we confirm adrenal insufficiency ruled out
-admit to IMU, can likely transfer to tele tomorrow once confirm vitals stable overnight
-NPO, RN to TT me if mentation improves for diet
-start Levothyroxine 75mcg daily once patient able to take PO (confirmed dose with Dr. Miguel)
-given stable vitals, no need to give T3 at this time
-F/U Cortisol value and stop hydrocortisone if WNL
-D5 NS
-PT/OT/ST
-appreciate Neurology consult, presentation not concerning for CVA, TME can be explained by elevated TSH. If no improvement can consider EEG
-hold [employer] Remeron, Gabapentin. Baclofen is ordered as can have significant withdrawal, but ordered to hold for sedation
-continue IV thiamine ordered by Neurology
UTI
-potentially contributing to presentation, start IV Ceftriaxone and follow up cultures
Anxiety/Depression
-[employer] Depakote
Essential HTN
-[employer] Amlodipine
GERD
-[employer] Protonix
Constipation
-continue bowel regimen
DVT PPx Lovenox subQ
DNR
76 MINUTES spent on patient evaluation
left VM for son
--- NOTE | 2024-10-30 12:57 | EDCM ---
CM reviewed chart, pt not responding and no family at bedside in ED.
Resides in LTC at [facility].
CM will continue to follow for any discharge planning needs.
[2024-10-30] MEDS: LEVOTHROID 75 MCG IV (12:59)
[2024-10-30] MEDS: SOLU-CORTEF 50 MG IV (12:59)
[2024-10-30] MEDS: ROCEPHIN 1000 MG IV (13:00)
[2024-10-30 13:22] LABS: Folate 4.1 ng/ml (2.76-20); Vitamin B12 > 1000 pg/ml (239-931)
[2024-10-30 14:56] LABS: Urine Squamous Cell 0-2 /LPF (Few)
[2024-10-30 15:59] LABS: Cortisol, Random 9.3 ug/dl
--- NOTE | 2024-10-30 16:40 | PTCARENOTE ---
Patient arrived to unit via stretcher, she is lethargic but does arouse to loud voice and touch. Pt very [place] and says'I cannot hear you' conversation repeated. Pt opens left eye and tells me she is blind in RT eye, will review chart to confirm. Pt
back to sleep immediately after responding to questions. Resp. snoring at 12/min with oxygen @ 2L, Puse ox drops to 88% while snoring. Pt awoken for deep breaths and Pulse x up to 92%. Lungs diminished with crackles in rt lower lobe. Abdomen soft
with hypoactive bowel tones. Follows an occasional command. hand grasps equally weak bilateral.
[2024-10-30] MEDS: D5/0.9% SODIUM CHLORIDE 1000 IV (16:55)
--- NOTE | 2024-10-30 17:58 | PTCARENOTE ---
patient arrived to unit she will respond occasional to verbal questions -she is very [place] but hearing aids are not here. She is requiring 3L oxygen to maintain sat >92%. Difficult to complete admission assessment, obtained answers from medical record
and son to best available.
[2024-10-30] MEDS: LOVENOX 40 MG SC (18:12)
[2024-10-30] MEDS: DEPACON 50.625 MG IV ×2 (19:17→23:08)
[2024-10-30] MEDS: LIORESAL 5 MG PO (20:09)
[2024-10-31] VITALS (14 sets, daily range): BP systolic 92–149; BP diastolic 50–75; PULSE 70–135; O2SAT 95–97
--- NOTE | 2024-10-31 00:25 | PTCARENOTE ---
assumed care of patient. pt is AAOx2- oriented to self and place, not time. at times patient calling out, but patient reoriented without issues. VSS. on 3L NC 97%. pt is WC bound at baseline, PW in use. pt was able to take pills with applesauce and
drink some water without issues. per order, notified covering EDGER MACHINE SETTER of patient status, diet order entered. q2t. care ongoing.
[2024-10-31] MEDS: DEPACON 50.625 MG IV ×2 (05:14→12:03)
[2024-10-31 05:43] LABS: Hematocrit 38.6 % (37.0-47.0); Hemoglobin 12.6 g/dL (12.0-16.0); Mean Corp Hgb Conc. 32.6 g/dL (33.0-37.0); Mean Corpuscular Volume 96.3 fL (81.0-99.0); Nucleated Red Blood Cells % 0 %; Platelet Count 184 10^3/uL (130-400); Red Cell Dist. Width 14.2 % (11.5-14.5)
[2024-10-31 06:18] LABS: ALT (SGPT) 67 U/L (0-35); AST (SGOT) 57 U/L (14-36); Albumin 4.7 g/dl (3.5-5.0); Alkaline Phosphatase 54 U/L (38-126); Blood Urea Nitrogen 19 mg/dl (7-17); Calcium 8.9 mg/dl (8.4-10.2); Carbon Dioxide 30 mmol/L (22-30); Chloride 103 mmol/L (98-107); Estimated Creatinine Clearance 38 ml/min; Glucose 105 mg/dl (70-99); Magnesium 2.4 mg/dl (1.6-2.3); Potassium 4.8 mmol/L (3.5-5.1); Sodium 137 mmol/L (135-145); Total Protein 7.2 g/dl (6.3-8.2); eGFR > 60.00
[2024-10-31] MEDS: PROTONIX IV 40 MG IV (08:27)
[2024-10-31] MEDS: NSS (PRESERVATIVE FREE) 10 ML IV (08:28)
[2024-10-31] MEDS: D5/0.9% SODIUM CHLORIDE 1000 IV ×2 (08:31→21:32)
[2024-10-31] MEDS: MIRALAX 17 GRAMS PO (08:33)
[2024-10-31] MEDS: LIORESAL 5 MG PO ×2 (08:37→19:32)
[2024-10-31] MEDS: NORVASC 5 MG PO (08:37)
[2024-10-31] MEDS: SENOKOT 8.6 MG PO (08:38)
[2024-10-31] MEDS: VITAMIN D3 (cholecalciferol) 25 MCG PO (08:38)
--- NOTE | 2024-10-31 09:40 | PTOTSP ---
Speech Language Pathology
Pt seen for clinical bedside swallow evaluation. P.O. trials of puree, regular solids, and thin liquids provided. Initially pt took 7 consecutive sips of thin liquids with resultant brief cough. Asked pt to cough more, and prolonged wet coughing
noted. With single sip, no coughing noted. Adequate mastication, bolus formation, and A-P transit noted with no oral residue.
Recommend:
(1) Regular solids/thin liquids
(2) Aspiration precautions: single sips only (pinch straw to ensure single sip), sit upright, slow rate
(3) Meds crushed in puree
(4) TIMBER FALLER to continue to follow
--- NOTE | 2024-10-31 09:49 | W.PN.NEURO.1 ---
Today's Communication / Plan
-
Continue supportive care
No indication at this time patient would benefit from additional neuroimaging or EEG
Neuro Assessment/Plan
Assessment
Acute onset change in mental status; most likely secondary to toxic metabolic encephalopathy, currently resolved
Plan
Continue supportive care
No indication at this time patient would benefit from additional neuroimaging or EEG
Will follow as needed
Subjective/Objective
Subjective Data
Date of Service: October 31, 2024
Patient reports no symptoms currently
Objective Data
Vital Signs
Temp Pulse Resp BP Pulse Ox
36.6 C 55 14 133/66 98
10/31/24 09:06 10/31/24 08:37 10/31/24 06:00 10/31/24 08:37 10/31/24 06:00
Lab Results
10/31/24 05:27
10/31/24 05:27
PT 13.6 Sec (11.4-14.6) 10/30/24 09:43
INR 0.99 10/30/24 09:43
APTT 27.9 Sec (23.4-35.0) 10/30/24 09:43
Sodium 137 mmol/L (135-145) 10/31/24 05:27
Potassium 4.8 mmol/L (3.5-5.1) 10/31/24 05:27
BUN 19 mg/dl (7-17) H 10/31/24 05:27
Glucose 105 mg/dl (70-99) H 10/31/24 05:27
Calcium 8.9 mg/dl (8.4-10.2) 10/31/24 05:27
Vitamin B12 > 1000 pg/ml (239-931) H 10/30/24 09:43
Ur Buprenorphine Negative (Negative) 10/30/24 10:54
Patient Allergies
nickel Allergy (Verified 10/30/24 09:33)
Rash
Penicillins Allergy (Verified 10/30/24 09:33)
Rash
Review of Systems
-
Unable to obtain full review of systems at this time due to: Dementia
History Source: Patient
All other systems: Reviewed and negative
Physical Exam
-
General: No Apparent Distress, Appears Stated Age and Wearing Oxygen
Eyes: Round OU, [place] Conjunctivae and No Ptosis
HEENT: Anicteric and Moist Mucous Membranes
Neck: Full Range of Motion
Respiratory: No Dyspnea
Cardiac: No JVD
GI: Non-distended
Skin: Unremarkable
Extremities: No Clubbing, No Cyanosis and No Edema
Psych: Negative Intact Judgement/Insight
Extended Neurological Exam
Mood & Affect: Mood Unremarkable and Affect Unremarkable
Attention Span & Concentration: Awake and Interactive
Memory: Unable to Recall Personal History
Tremor: Hand Tremor Absent and Head Tremor Absent
Speech: Quality Unremarkable and Quantity Unremarkable
Cranial Nerve II: Left Eye: Pupillary Size Unremarkable and Visual [place] Grossly Intact
Cranial Nerve II: Right Eye: Pupillary Size Unremarkable and Visual [place] Grossly Intact
Cranial Nerves III, IV, : Extraocular Movement: Grossly Intact
Cranial Nerve VII: Facial Symmetry: Normal Facial Symmetry
Cranial Nerve VIII: Hearing: Negative Unremarkable Hearing to Normal Conversational Volume
Muscle Bulk & Tone: Bulk Unremarkable and Tone Unremarkable
Pronator Drift: No Drift in Upper Extremities
Touch Sensation: Unremarkable
Coordination: Kkopmo-bhyd-zytaty Testing Unremarkable
Data Reviewed
-
CT-A: Report Reviewed
CT Head: Report Reviewed
Reviewed with: Nurse and Nurse Practioner
Old Records: Summarized
Past History
Past History
ED Past Medical History: Asthma, Hypercholesterolemia, Hypothyroidism, Other (Dementia, Constipation, Bowel obstruction, Spinal compression fractures, Osteoporosis) and Other (GCA, RA, gout, major depressive disorder, blindness right eye)
ED Past Surgical History: None
Social History
Tobacco: Former smoker
Alcohol: None
Drug: None
Personal:
Living: [facility] ([facility])
Employment: Not employed
Medications
-
Medications:
Generic Name Dose Route Start Last Admin
Trade Name Freq PRN Reason Stop Dose Admin
Acetaminophen 650 mg 10/30/24 16:14
Acetaminophen 650 Mg Rectal Suppository RECTAL 11/27/24 16:13
Q4HPRN PRN
mild pain/PETTY/temp> 100.4F
Albuterol 2 puff 10/30/24 16:14
Albuterol Hfa [90 Mcg/Dose] Inhaler INH
R Q6HPRN PRN
sob
Protocol
Amlodipine Besylate 5 mg 10/31/24 08:00 10/31/24 08:37
Amlodipine 5 Mg Tablet PO 11/28/24 07:59 5 mg
DAILY GOGO Administration
Baclofen 5 mg 10/30/24 20:00 10/31/24 08:37
Baclofen 5 Mg Tablet PO 11/27/24 19:59 5 mg
BID GOGO Administration
Bisacodyl 10 mg 10/30/24 16:14
Bisacodyl 10 Mg Rectal Suppository RECTAL 11/27/24 16:13
[id number] PRN
constipation
Ceftriaxone Sodium 1,000 mg 10/30/24 14:00 10/30/24 13:00
Ceftriaxone 1000 Mg / 10 Ml Vial IV 1,000 mg
Q24H GOGO Administration
Cholecalciferol 25 mcg 10/31/24 08:00 10/31/24 08:38
Cholecalciferol (Vitamin D3) 25 Mcg Tablet (1,000 Units) PO 11/28/24 07:59 25 mcg
DAILY GOGO Administration
Enoxaparin Sodium 40 mg 10/30/24 18:00 10/30/24 18:12
Enoxaparin Sodium 40 Mg/0.4 Ml Syringe SC 11/27/24 17:59 40 mg
QPM GOGO Administration
Dextrose/Sodium Chloride 1,000 mls @ 70 mls/hr 10/30/24 16:14 10/31/24 08:31
D5/0.9% Sodium Chloride IV 1,000 mls
[id number] GOGO Administration
Valproate Sodium 62.5 mg/ 50.625 mls @ 55 mls/hr 10/30/24 18:00 10/31/24 05:14
Sodium Chloride IV 11/27/24 17:59 50.625 mls
Q6 GOGO Administration
Levothyroxine Sodium 75 mcg 10/31/24 18:00
Levothyroxine 100 Mcg (20 Mcg/Ml) Vial IV 11/28/24 17:59
DAILY@1800 GOGO
Protocol
Pantoprazole Sodium 40 mg 10/31/24 08:00 10/31/24 08:27
Pantoprazole Sodium 40 Mg/10 Ml Vial IV 11/28/24 07:59 40 mg
DAILY GOGO Administration
Polyethylene Glycol 17 grams 10/31/24 08:00 10/31/24 08:33
Polyethylene Glycol Powder 17 Grams Packet PO 11/28/24 07:59 17 grams
DAILY GOGO Administration
Sennosides 8.6 mg 10/31/24 08:00 10/31/24 08:38
Sennosides (Senokot) 8.6 Mg Tablet PO 11/28/24 07:59 8.6 mg
DAILY GOGO Administration
Sodium Chloride 0 flush 10/30/24 13:00
Sodium Chloride 0.9% (Flush) Syringe IV 11/27/24 12:59
PER PROTOCOL GOGO
Sodium Chloride 10 ml 10/31/24 08:00 10/31/24 08:28
Sodium Chloride 0.9% (Preservative Free) 10 Ml Vial IV 11/28/24 07:59 10 ml
DAILY GOGO Administration
Sterile Water 10 ml 10/31/24 14:00
Sterile Water For Injection 10 Ml Vial IV 11/28/24 13:59
Q24H GOGO
Thiamine HCl 100 mg 10/31/24 13:00
Thiamine (100 Mg/Ml) 2 Ml Vial IV 11/03/24 12:59
DAILY GOGO
[2024-10-31] MEDS: THIAMINE INJECTION 100 MG IV (12:03)
--- NOTE | 2024-10-31 13:13 | CM ---
Following up on Patient. RN stated that patient still needs to stay in the IMU today, may downgrade over the weekend. Return LTC Referral sent to [facility] because patient is LTC there.
PLAN: Return to [facility] when ready.
[2024-10-31] MEDS: ROCEPHIN 1000 MG IV (13:54)
[2024-10-31] MEDS: STERILE WATER FOR INJECTION 10 ML IV (13:54)
--- NOTE | 2024-10-31 15:44 | W.PN.HOSP.TC ---
Addendum entered and electronically signed by Bill Leigh MD 10/31/24 20:13:
Attending Addendum-
I saw and evaluated the patient. I reviewed the resident�s note and agree with findings and plan as documented in the resident�s note. Sub: Patient back to baseline mentation. Feels fatigued no other complaints. Denies fevers chills cough neuro sxs
or urinary sxs. Full 12 point ROS reviewed and negative except as documented Exam: Vitals reviewed in chart GEN-NAd heart RRR lungs clear abd distended soft NT pos BS LE no edema Neruo AAO x 3 MS 06/09
Plan:
#Acute change in Mental Status
#Toxic Metabolic Encephalopathy
#Severe Hypothyroidism
-CTA head/neck and head ct- no acute abnormalities
-recently started on T4 replacement with TSH 67.8 at 25mcg (admitted from 10/24-10/30)
-patient doesn't meet criteria for Myxedema Coma, case discussed with Dr. Miguel- treat with higher dose Synthroid 75 mcg->transition from IV to PO
-given one dose Hydrocortisone-no need for further doses
-transfer to tele
-PT/OT/ST
-appreciate Neurology consult, presentation not concerning for CVA, TME can be explained by elevated TSH
-continue IV thiamine ordered by Neurology
# UTI
-patient without sxs currently
-potentially contributing to presentation-cont Ceftriaxone for now
-await urine cx
# Depression-restart remeron
# Mood disorder- cont Depakote and gabapentin
# Essential HTN- cont Amlodipine
# GERD-cont Protonix
# Constipation-continue bowel regimin
DVT PPx Lovenox subQ
CODE-DNR
Dispo- hopeful DC back to [facility] weekend
ACP
Patient consented to discuss, was alone, time spent explanation of advance directives, changes in health status, patient�s health care wishes if the patient becomes unable to make health decisions, goals of care, code status, and prognosis, verified
with facility patient adamant on wanting to be DNR- 16 minutes
Time spent coordinating care, review of plan of care with resident, personally reviewed previous records in EMR, med rec, labs, radiology, d/w nursing, total time documented is exclusive of any additional time listed that was spent in advance care
planning discussion -�52 minutes
Original Note:
Today's Communication/Plan
-
Transitioned to PO meds
Improved mental status
Dr. Miguel (Mariana) OK to start on Levothyroxine 75mcg daily
Monitor for BM
Downgrade to tele
Assessment / Plan
Assessment / Plan
Ms. Hiwot Pacheco is a 84 yo woman with GCA, RA, asthma, dementia, anxiety/depression, HLD, HTN, GERD, blindness right eye, recent admission 10/24-10/26 for constipation in setting of uncontrolled hypothyroidism (started on Synthroid 25mcg and
discharged with 4-6wk TSH recheck & f/u op) presents from [facility] with episode of acute confusion iso TSH 67.8. She was admitted to IMU for further management. Neuro is following.
HEAD CT
No acute intracranial pathology.
Moderate atrophy. Stable
HEAD/NECK CTA
No acute vascular pathology. No M1 and M2 occlusion.
Less than 50% stenosis of the distal right common carotid artery and proximal right internal carotid artery
#Acute Change in Mental Status
#Hypothyroidism, recent diagnosis and poorly controlled
TSH 67.8. Patient started on Synthroid 25mcg 10/24. Initial c/f Myxedema coma, but she is not hypothermic, BP stable, sodium, K stable.�Admitting provider discussed the case with Dr. Miguel (mariana) and given patient's significant lethargy, he suggest
treating with higher dose IV Synthroid 75 mcg daily as well as 50mg Hydrocortisone until adrenal insufficiency ruled out. This was done so on 10/31. Her mentation is significantly improved on 10/31 am. All IV meds transitioned to PO.
- s/p IV Synthroid 75mcg x 1 and 50mg Hydrocortisone x [address] Miguel
--discussed via TT today, IV Synthroid 75mcg --> PO Synthroid 75mcg daily
--Plan to recheck TSH in 4-6 weeks outpatient with follow-up
- Neuro following
-- IV thiamine
-- Restart home Remeron, Gabapentin
-- Continue home Baclofen
-- CTM Valproid acid; current level not reliable per pharm given time of measurement
- D5 NS
- PT/OT/ST
- Downgrade from IMU to tele
#UTI
UA with WBC, 2+ LE, RBC, and urine bacteria. Patient complaining of dysuria. Likely reason for AMS.
- IV Ceftriaxone
- Follow-up cultures
#Constipation
Last hospitalization, suffered from constipation requiring PRN enemas. Endorsing abdominal discomfort today and unable to recall last BM.
- Miralax 17g bid
- Bisacodyl rectal q72h PRN
- Dulcolax 10mg q72h PRN
- Milk of magnesia 30ml q72h PRN
- Monitor for BM & improvement in abd sx
---Consider PRN enema
#Asthma
- albuterol prn
#Anxiety/Depression
#Dementia
Unclear why she is on Depakote.
- Continue home Depakote and Mirtazapine 30mg daily
#HTN
- Home amlodipine 5mg daily
#RA
- Home gabapentin 200mg BID and baclofen 5mg daily
#GERD
- Home pantoprazole 40mg daily
DVT ppx: Lovenox 30mg SC
Code Status: DNR/DNI
Anticipated Discharge: 24 - 48 hours
Subjective/Interval History
-
Date of Service: October 31, 2024
- This morning, alert and oriented, responsive. Complaining of confusion and overall body fatigue.
- Reports abdominal pain; unsure when last BM was.
- Able to swallow safely; IV meds switched to PO.
Objective Data
-
Labs:
Laboratory Results
10/31/24
05:27
WBC 8.2
Hgb 12.6
Hct 38.6
Plt Count 184
Sodium 137
Potassium 4.8
Chloride 103
Carbon Dioxide 30
BUN 19 H
Creatinine 0.8
Glucose 105 H
Calcium 8.9
Total Bilirubin 0.7
AST 57 H
ALT 67 H
Alkaline Phosphatase 54
Vital Signs:
Vital Signs
Temp Pulse Resp BP Pulse Ox
97.8 F 63 17 124/60 98
10/31/24 09:06 10/31/24 14:00 10/31/24 14:00 10/31/24 14:00 10/31/24 14:00
I&O
10/30/24 10/31/24 11/01/24
06:59 06:59 06:59
Intake Total 155 / 155
Balance 155 / 155
Review of Systems
-
Unable to obtain full review of systems at this time due to: Dementia
History Source: Patient
All other systems: Reviewed and negative
Constitutional: Reports Fatigue and Sleep Disturbance
Abdomen/GI: Reports Abdominal Pain
Physical Exam
-
General: Well Developed, No Apparent Distress, Comfortable, Appears Chronically Ill and Cachectic
HEENT: Normocephalic, Atraumatic, Moist Mucous Membranes and Hearing Impaired
Respiratory: Crackles and Non Labored Respirations
Cardiac: Regular Rhythm and S1/S2
GI: Soft, Nondistended and Tender (RLQ)
Skin: Warm and Dry
Neuro: AO x 3
Psych: Calm
[2024-10-31] MEDS: LOVENOX 30 MG SC (17:43)
[2024-10-31] MEDS: SYNTHROID 75 MCG PO (19:32)
[2024-10-31] MEDS: DEPAKOTE SPRINKLE 125 MG PO (19:32)
[2024-10-31] MEDS: NEURONTIN 200 MG PO (19:32)
[2024-10-31] MEDS: REMERON 30 MG PO (20:55)
--- NOTE | 2024-10-31 21:05 | PTCARENOTE ---
pt tele level of care, pt is AAOx2- oriented to self, place, not time. bed alarm on. VSS. on 3L NC 97%. pt to be moved to [facility], report called to RN, pt transferred by wc will all belongings. pt able to take meds with applesauce without issues.
[2024-10-31] MEDS: TYLENOL 650 MG PO (21:45)
[2024-11-01] MEDS: TYLENOL 650 MG PO (02:32)
[2024-11-01 03:05] VITALS: BP 142/67
[2024-11-01 04:02] VITALS: BP 142/67
[2024-11-01] MEDS: SYNTHROID 75 MCG PO (04:31)
[2024-11-01 06:00] VITALS: BMI 17.4
[2024-11-01 07:12] VITALS: BP 123/79
--- NOTE | 2024-11-01 07:35 | W.PN.HOSP.TC ---
Addendum entered and electronically signed by Uzair Stauffer MD 11/01/24 14:16:
dc to [facility]
levothyroxine increased to 75mcg
will need repeat tft's in 4-6weeks
will need outpatient endo follow up
Original Note:
Today's Communication/Plan
-
Discharge on oral antibiotics back to NH
Assessment / Plan
Assessment / Plan
Ms. Hiwot Pacheco is a 84 yo woman with GCA, RA, asthma, dementia, anxiety/depression, HLD, HTN, GERD, blindness right eye, recent admission 10/24-10/26 for constipation in setting of uncontrolled hypothyroidism (started on Synthroid 25mcg and
discharged with 4-6wk TSH recheck & f/u op) presents from [facility] with episode of acute confusionin setting of TSH 67.8. She was admitted to IMU for further management. Neuro is following.
#Acute Change in Mental Status secondary to Toxic metabolic encephalopathy
#CTA head/neck and head ct- no acute abnormalities
Less than 50% stenosis of the distal right common carotid artery and proximal right internal carotid artery
Severe hypothyroidism with a TSH of 67.8.-Case discussed with -S/P 50mg Hydrocortisone d/C after cortisol levels checked
Currently on 75mcg of oral thyroxine-Repeat TFTs on o/p basis in 4-6 weeks
continue home Remeron, Gabapentin, Baclofen
Neuro recs appreciated-No concern for acute CVA--continue IV thiamine as ordered-TME explained by severe hypothyroidism
PT/OT/ST
#UTI
UA with WBC, 2+ LE, RBC, and urine bacteria.contributory
Sensitivities back-can discharge on oral doxycycline
# Depression-restart remeron
# Mood disorder- cont Depakote and gabapentin
# Essential HTN- cont Amlodipine
# GERD-cont Protonix
# Constipation-continue bowel regimin
DVT ppx: Lovenox 30mg SC
Code Status: DNR/DNI
Anticipated Discharge: Within 24 hours
Subjective/Interval History
-
Date of Service: November 01, 2024
Patient seen and examined at bedside
Lying comfortably on bed with 3 liter oxygen via nasal cannula
No complains
Alert, oriented to name , place and time
Objective Data
-
Vital Signs:
Vital Signs
Temp Pulse Resp BP Pulse Ox
97.2 F 57 12 142/67 99
11/01/24 03:05 11/01/24 03:05 11/01/24 03:05 11/01/24 03:05 11/01/24 03:05
I&O
10/31/24 11/01/24 11/02/24
06:59 06:59 06:59
Intake Total 155 / 155 1560 / 1560
Output Total 1800 / 1800
Balance 155 / 155 -240 / -240
Review of Systems
-
All other systems: Reviewed and negative
Physical Exam
-
General: No Apparent Distress, Comfortable, Conversant and Other (fragile)
HEENT: Moist Mucous Membranes and Oxygen (3 liters via nasal cannula)
Respiratory: Clear to Auscultation; Negative Wheezes, Rales or Rhonchi
Cardiac: Regular Rhythm and S1/S2
GI: Soft, Nontender and Normal Bowel Sounds
Musculoskeletal: No Clubbing, No Cyanosis and No Edema
Skin: Other (Bruises over skin)
Neuro: Awake, AO x 3 and Nonfocal/Grossly Intact
Psych: Calm
[2024-11-01] MEDS: MIRALAX 17 GRAMS PO (08:52)
[2024-11-01] MEDS: LIDOCAINE 4% PATCH 1 PATCH TOPICAL (08:52)
[2024-11-01] MEDS: DEPAKOTE SPRINKLE 125 MG PO (08:53)
[2024-11-01] MEDS: NEURONTIN 200 MG PO (08:53)
[2024-11-01] MEDS: LIORESAL 5 MG PO (08:53)
[2024-11-01] MEDS: NORVASC 5 MG PO (08:54)
[2024-11-01] MEDS: PROTONIX 40 MG PO (08:54)
[2024-11-01] MEDS: VITAMIN D3 (cholecalciferol) 25 MCG PO (08:54)
[2024-11-01] MEDS: SENOKOT 8.6 MG PO (08:54)
[2024-11-01] MEDS: VITAMIN B1 100 MG PO (08:54)
--- NOTE | 2024-11-01 10:38 | CM ---
Reviewed the chart notes and spoke with the patient's son via telephone. IMM reviewed. CM continues to be available to patient/family and is monitoring medical plan for needs at discharge.
Plan: Discharge back to [facility].
Call report to: [phone]
Fax report to: [phone]
Medical necessity and transport forms on chart.
[2024-11-01 11:20] VITALS: BP 133/64
[2024-11-01] MEDS: ROCEPHIN 1000 MG IV (13:04)
[2024-11-01] MEDS: STERILE WATER FOR INJECTION 10 ML IV (13:04)
[2024-11-01] MEDS: FLUSH (NSS) 2 FLUSH IV (13:05)
--- NOTE | 2024-11-01 13:38 | W.DCSUMMARY ---
Documented by User: Lebron Cleveland MD, Resident 11/01/24 13:47
Discharge Summary
Discharge Data
Date of Admission: 10/30/24
Date of Discharge: 11/01/24
-
Pending Results: No
Hospital Course
Discharging Physician :
Uzair Stauffer
Disposition :
group home
Principal Discharge diagnosis :
Acute Change in Mental Status secondary to Toxic metabolic encephalopathy/UTI
Chronic Discharge diagnosis :
giant cell arteritis, rheumatoid arthritis, asthma, hypothyroidism, dementia, anxiety/depression, spinal compression fractures, osteoporosis, hyperlipidemia, hypertension, GERD, severe constipation, gout, blindness in the right eye
Hospital Course :
Ms. Hiwot Pacheco is a 84 yo woman who presents from [facility] with episode of acute confusion in setting of TSH of 67.8. She was recently discharged from hospital on 10/24 on thyroxine 25 mcg daily for a TSH of 67.8, the reason of
admission was constipation. Plan was to recheck TFTs in 4 to 6 weeks and adjust medications. She presented back to the hospital with acute change in mental status, she does not fulfill criteria of myxedema coma as she does not have bradycardia,
hypotension, ankle jerk or any other criteria to fulfill myxedema coma. Neurological causes were ruled out with CT head and CTA of head and neck. Case was discussed with Dr. Miguel who suggested to give 50 mg IV hydrocortisone and 75 mcg of IV
levothyroxine. Patient's mental status improved. Cortisol levels checked which were within normal limits. Patient started on 75 mcg of levothyroxine orally as per recommendations of Dr. Miguel. Plan to follow-up on outpatient basis and repeat
TFTs in 4 to 6 weeks.
She also was found to have a UTI which could be contributory to the presentation. She received ceftriaxone in the hospital for 2 days, sensitivities back, discharged on doxycycline 100 mg twice daily for 1 more day.
Important imaging findings :
HEAD CT 10/30/24
No acute intracranial pathology.
Moderate atrophy. Stable
HEAD/NECK CTA10/30/24
No acute vascular pathology. No M1 and M2 occlusion.
Less than 50% stenosis of the distal right common carotid artery and proximal right internal carotid artery
Discharge Plan
-
Patient Disposition: [facility]/SNF
Discharge Diagnosis/Procedures: Toxic metabolic encephalopathy secondary to severe hypothyroidism/UTI
Condition: Fair
Diet: As tolerated
Activity: As tolerated
Driving Restrictions: As prior to admission
Bathing Restrictions: OK to Shower
Referrals:
Kobe Shelton DO [Family Provider, [facility]] - in less than 1 week
Additional Discharge Medication Instructions: Increased dose of levothyroxine to 75 mcg daily-repeat thyroid function tests in 4 to 6 weeks
Added doxycycline 100 mg twice daily-for 1 more day for UTI
Prescriptions:
New
levothyroxine [Levoxyl] 75 mcg tablet
75 mcg PO DAILY 30 Days Qty: 30 0RF
doxycycline monohydrate 100 mg capsule
100 mg PO BID 1 Days Qty: 2 0RF
Continued
magnesium hydroxide [Milk of Magnesia] 400 mg/5 mL Suspension
30 ml PO [id number] PRN (Reason: if no by 3rd day)
bisacodyl 10 mg Suppository
10 mg IL [id number] PRN (Reason: if no bm aftr mom)
Actemra 162 mg/0.9 mL Syringe
162 mg SC TH
divalproex [Depakote Sprinkles] 125 mg Capsule, Delayed Rel Sprinkle
125 mg PO BID
gabapentin 100 mg Capsule
200 mg PO BID Qty: 0 0RF
calcium carbonate-vitamin D3 [Calcium 600 + D(3)] 600 mg-10 mcg (400 unit) Tablet
1 tab PO DAILY
baclofen 5 mg Tablet
5 mg PO BID
acetaminophen [Tylenol] 325 mg tablet
650 mg PO Q6HPRN PRN (Reason: mild pain/temp>100.4)
amlodipine [Norvasc] 5 mg Tablet
5 mg PO DAILY
pantoprazole [Protonix] 20 mg Tablet,Delayed Release (Dr/Ec)
20 mg PO DAILY
mirtazapine 30 mg Tablet
30 mg PO HS
bismuth subsalicylate [Pepto-Bismol] 262 mg/15 mL Suspension
524 mg PO Q3HPRN PRN (Reason: stoamch issuses)
albuterol sulfate 90 mcg/actuation Hfa Aerosol Inhaler
2 puff INHALATION R Q6HPRN PRN (Reason: sob)
cholecalciferol (vitamin D3) [Vitamin D3] 25 mcg (1,000 unit) Tablet
25 mcg PO DAILY
Biotene Moisturizing Mouth [place],Non-Aerosol
2 spray MUCOUS MEMBRANE TIDPRN PRN (Reason: dry mouth)
Preparation H (Filippo Hernández) 20 % Pads, Medicated
1 pad topical TID
polyethylene glycol 3350 [HealthyLax] 17 gram powder in packet
17 g PO DAILY
lidocaine 4 % Cream
1 applic TOPICAL QIDPRN PRN (Reason: lower back)
sennosides [senna] 8.6 mg tablet
8.6 mg PO DAILY 60 Days Qty: 60 0RF
Changed
levothyroxine 25 mcg Tablet
75 mcg PO DAILY @ 0600 60 Days Qty: 60 0RF
Discharge Orders:
Discharge Patient (As Directed); Ordered 11/01/24
Ordered By: Lebron Cleveland
Discharge Date and Time
Print Language: [place]

Documented by User: Uzair Stauffer MD 11/01/24 14:14
Discharge Summary
Discharge Data
Date of Admission: 10/30/24
Date of Discharge: 11/01/24
Discharge Plan
-
Patient Disposition: [facility]/SNF
Discharge Diagnosis/Procedures: Toxic metabolic encephalopathy secondary to severe hypothyroidism/UTI
Condition: Fair
Diet: As tolerated
Activity: As tolerated
Driving Restrictions: As prior to admission
Bathing Restrictions: OK to Shower
Referrals:
Kobe Shelton DO [Family Provider, [facility]] - in less than 1 week
Additional Discharge Medication Instructions: Increased dose of levothyroxine to 75 mcg daily-repeat thyroid function tests in 4 to 6 weeks
Added doxycycline 100 mg twice daily-for 1 more day for UTI
Prescriptions:
New
levothyroxine [Levoxyl] 75 mcg tablet
75 mcg PO DAILY 30 Days Qty: 30 0RF
doxycycline monohydrate 100 mg capsule
100 mg PO BID 1 Days Qty: 2 0RF
Continued
magnesium hydroxide [Milk of Magnesia] 400 mg/5 mL Suspension
30 ml PO [id number] PRN (Reason: if no by 3rd day)
bisacodyl 10 mg Suppository
10 mg IL [id number] PRN (Reason: if no bm aftr mom)
Actemra 162 mg/0.9 mL Syringe
162 mg SC TH
divalproex [Depakote Sprinkles] 125 mg Capsule, Delayed Rel Sprinkle
125 mg PO BID
gabapentin 100 mg Capsule
200 mg PO BID Qty: 0 0RF
calcium carbonate-vitamin D3 [Calcium 600 + D(3)] 600 mg-10 mcg (400 unit) Tablet
1 tab PO DAILY
baclofen 5 mg Tablet
5 mg PO BID
acetaminophen [Tylenol] 325 mg tablet
650 mg PO Q6HPRN PRN (Reason: mild pain/temp>100.4)
amlodipine [Norvasc] 5 mg Tablet
5 mg PO DAILY
pantoprazole [Protonix] 20 mg Tablet,Delayed Release (Dr/Ec)
20 mg PO DAILY
mirtazapine 30 mg Tablet
30 mg PO HS
bismuth subsalicylate [Pepto-Bismol] 262 mg/15 mL Suspension
524 mg PO Q3HPRN PRN (Reason: stoamch issuses)
albuterol sulfate 90 mcg/actuation Hfa Aerosol Inhaler
2 puff INHALATION R Q6HPRN PRN (Reason: sob)
cholecalciferol (vitamin D3) [Vitamin D3] 25 mcg (1,000 unit) Tablet
25 mcg PO DAILY
Biotene Moisturizing Mouth [place],Non-Aerosol
2 spray MUCOUS MEMBRANE TIDPRN PRN (Reason: dry mouth)
Preparation H (Filippo Hernández) 20 % Pads, Medicated
1 pad topical TID
polyethylene glycol 3350 [HealthyLax] 17 gram powder in packet
17 g PO DAILY
lidocaine 4 % Cream
1 applic TOPICAL QIDPRN PRN (Reason: lower back)
sennosides [senna] 8.6 mg tablet
8.6 mg PO DAILY 60 Days Qty: 60 0RF
Changed
levothyroxine 25 mcg Tablet
75 mcg PO DAILY @ 0600 60 Days Qty: 60 0RF
Discharge Orders:
Discharge Patient (As Directed); Ordered 11/01/24
Ordered By: Lebron Cleveland
Discharge Date and Time
Print Language: [place]
== END 2024-11-01 14:38 | DRG 643 ==
LOC: 4 EAST ACU 13:27
PROVIDERS: Registered Nurse Critical Care Medicine; ADMITTING PHYSICIAN Student in an Organized Health Care Education/Training Program; ATTENDING PHYSICIAN Hospitalist; CONSULT PHYSICIAN Psychiatry & Neurology Neurology; EMERGENCY PHYSICIAN Emergency Medicine; FAMILY PHYSICIAN Student in an Organized Health Care Education/Training Program
DX: E03.9 Hypothyroidism, unspecified (principal); G92.8 Other toxic encephalopathy; N39.0 Urinary tract infection, site not specified; F41.9 Anxiety disorder, unspecified; I10 Essential (primary) hypertension; Z66 Do not resuscitate; M31.6 Other giant cell arteritis; M06.9 Rheumatoid arthritis, unspecified; M81.0 Age-related osteoporosis without current pathological fracture; K21.9 Gastro-esophageal reflux disease without esophagitis; M10.9 Gout, unspecified; E78.00 Pure hypercholesterolemia, unspecified; F32.9 Major depressive disorder, single episode, unspecified; F03.90 Unspecified dementia, unspecified severity, without behavioral disturbance, psychotic disturbance, mood disturbance, and anxiety; F39 Unspecified mood [affective] disorder; K59.00 Constipation, unspecified; Z79.899 Other long term (current) drug therapy; Z87.891 Personal history of nicotine dependence
CPT/HCPCS: 70450; 70496; 70498; 80053; 80164; 80306; 81003; 81015; 82533; 82607; 82728; 82746; 82962; 83735; 84439; 84443; 85025; 85610; 85652; 85730; 87070; 87077; 87086; 87186; 92610; 93005; 97163; 97167; 99291; Q9967

== ENCOUNTER 2024-11-06 19:21 | Emergency (ER) | payer MEDICARE, OTHER, SELFPAY ==
[2024-11-06 19:36] VITALS: BP 104/59
[2024-11-06 19:47] LABS: Hematocrit 37.0 % (37.0-47.0); Hemoglobin 12.2 g/dL (12.0-16.0); Mean Corp Hgb Conc. 33.0 g/dL (33.0-37.0); Mean Corpuscular Volume 96.4 fL (81.0-99.0); Nucleated Red Blood Cells % 0 %; Platelet Count 182 10^3/uL (130-400); Red Cell Dist. Width 14.3 % (11.5-14.5)
[2024-11-06 20:00] VITALS: BP 107/85
[2024-11-06 20:12] LABS: Troponin I < 0.012 ng/ml
[2024-11-06 20:56] LABS: ALT (SGPT) 70 U/L (0-35); AST (SGOT) 64 U/L (14-36); Albumin 4.9 g/dl (3.5-5.0); Alkaline Phosphatase 61 U/L (38-126); Blood Urea Nitrogen 28 mg/dl (7-17); Calcium 9.5 mg/dl (8.4-10.2); Carbon Dioxide 31 mmol/L (22-30); Chloride 99 mmol/L (98-107); Glucose 89 mg/dl (70-99); Potassium 4.8 mmol/L (3.5-5.1); Sodium 136 mmol/L (135-145); Total Protein 7.2 g/dl (6.3-8.2); eGFR > 60.00
[2024-11-06 21:00] VITALS: BP 117/96
--- NOTE | 2024-11-06 21:50 | ED.GENMED ---
History of Present Illness
<Katty Díaz PA-C - Last Filed: 11/07/24 01:34>
General
Chief Complaint: Change Level of Consciousness
Source: patient and ambulance crew
Exam Limitations: clinical condition and dementia
Time Seen by Provider: 11/06/24 20:28
History of Present Illness
History of Present Illness:
see mdm
Past History
<Katty Díaz PA-C - Last Filed: 11/07/24 01:34>
Past History
ED Past Medical History: Asthma, Hypercholesterolemia, Hypothyroidism, Other (Dementia, Constipation, Bowel obstruction, Spinal compression fractures, Osteoporosis) and Other (GCA, RA, gout, major depressive disorder, blindness right eye)
ED Past Surgical History: None
Social History
Tobacco: Former smoker
Alcohol: None
Drug: None
Personal:
Living: long-term ([facility])
Employment: Not employed
Phy Exam
<Katty Díaz PA-C - Last Filed: 11/07/24 01:34>
Physical Exam
Physical Exam:
see MDM
Course
<Katty Díaz PA-C - Last Filed: 11/07/24 01:34>
Orders/Labs/Results
Orders:
Orders
11/06/24 19:28
Electrocardiogram (*1) Urgent
Reason for Study: Other
Other Reason for Exam: Possible Sepsis
Cardiac Monitoring- Treatment ONCE
IV Insert/Care/Rem.- Treatment PRN
O2 Therapy [RESP] Urgent
Titrate/Wean O2 to maintain O2 sat greater than (%): 93
Special Instructions: TO MAINTAIN CONTINUOUS O2 SATS > OR = 93%
Pulse Ox/cont/shift [RESP] Urgent
Quantity: 1
Special Instructions: CONTINUOUS
11/06/24 19:29
Electrocardiogram (*1) Urgent
Reason for Study: Syncope
EKG- Treatment ONCE
11/06/24 19:38
Complete Blood Count/With Diff Urgent
Troponin I Urgent
11/06/24 20:25
Comprehensive Metabolic Panel Urgent
Free T4 Urgent
TSH Reflex To Free T4 Urgent
Comment: ADD ON
11/06/24 20:40
Add On- LAB Urgent
Tests Added?: tsh refle t4
11/06/24 22:44
CT Head W/o Iv Contrast Urgent
Comment:
Reason For Exam: lethargy
11/06/24 22:46
CR Chest - 2 Views Urgent
Comment:
Reason For Exam: ams
11/06/24 22:58
Electrocardiogram (*1) Urgent
Reason for Study: Other
Other Reason for Exam: ams
EKG- Treatment ONCE
Troponin I Urgent
Abnormal Lab Results
11/06/24 11/06/24
19:38 20:25
RBC 3.84 L 10^6/uL
(4.20-5.40)
MCH 31.8 H pg
(27.0-31.0)
Immature Gran % 0.8 H %
(0-0.5)
Monocytes % 11.5 H %
(1.7-9.3)
Carbon Dioxide 31 H mmol/L
(22-30)
BUN 28 H mg/dl
(7-17)
AST 64 H U/L
(14-36)
ALT 70 H U/L
(0-35)
TSH (Reflex) 74.00 H uIU/ml
(0.47-4.68)
Free T4 0.38 L ng/dl
(0.78-2.19)
11/06/24 19:38
11/06/24 20:25
Vital Signs
Initial and Last Documented VS:
Initial Vital Signs
Pulse Resp Pulse Ox
76 20 96
11/06/24 19:30 11/06/24 19:30 11/06/24 19:30
Last Documented Vital Signs
Temp Pulse Resp BP Pulse Ox
37.3 C 65 19 134/74 99
11/06/24 19:36 11/07/24 00:15 11/07/24 00:15 11/07/24 00:00 11/07/24 00:15
<Jarad Elizabeth MD - Last Filed: 11/06/24 23:02>
Orders/Labs/Results
Orders:
Orders
11/06/24 19:28
Electrocardiogram (*1) Urgent
Reason for Study: Other
Other Reason for Exam: Possible Sepsis
Cardiac Monitoring- Treatment ONCE
IV Insert/Care/Rem.- Treatment PRN
O2 Therapy [RESP] Urgent
Titrate/Wean O2 to maintain O2 sat greater than (%): 93
Special Instructions: TO MAINTAIN CONTINUOUS O2 SATS > OR = 93%
Pulse Ox/cont/shift [RESP] Urgent
Quantity: 1
Special Instructions: CONTINUOUS
11/06/24 19:29
Electrocardiogram (*1) Urgent
Reason for Study: Syncope
EKG- Treatment ONCE
11/06/24 19:38
Complete Blood Count/With Diff Urgent
Troponin I Urgent
11/06/24 20:25
Comprehensive Metabolic Panel Urgent
Free T4 Urgent
TSH Reflex To Free T4 Urgent
Comment: ADD ON
11/06/24 20:40
Add On- LAB Urgent
Tests Added?: tsh refle t4
11/06/24 22:44
CT Head W/o Iv Contrast Urgent
Comment:
Reason For Exam: lethargy
11/06/24 22:46
CR Chest - 2 Views Urgent
Comment:
Reason For Exam: ams
11/06/24 22:58
Electrocardiogram (*1) Urgent
Reason for Study: Other
Other Reason for Exam: ams
EKG- Treatment ONCE
Troponin I Urgent
Abnormal Lab Results
11/06/24 11/06/24
19:38 20:25
RBC 3.84 L 10^6/uL
(4.20-5.40)
MCH 31.8 H pg
(27.0-31.0)
Immature Gran % 0.8 H %
(0-0.5)
Monocytes % 11.5 H %
(1.7-9.3)
Carbon Dioxide 31 H mmol/L
(22-30)
BUN 28 H mg/dl
(7-17)
AST 64 H U/L
(14-36)
ALT 70 H U/L
(0-35)
TSH (Reflex) 74.00 H uIU/ml
(0.47-4.68)
Free T4 0.38 L ng/dl
(0.78-2.19)
11/06/24 19:38
11/06/24 20:25
Vital Signs
Initial and Last Documented VS:
Initial Vital Signs
Pulse Resp Pulse Ox
76 20 96
11/06/24 19:30 11/06/24 19:30 11/06/24 19:30
Last Documented Vital Signs
Temp Pulse Resp BP Pulse Ox
37.3 C 65 19 134/74 99
11/06/24 19:36 11/07/24 00:15 11/07/24 00:15 11/07/24 00:00 11/07/24 00:15
<Katty Díaz PA-C - Last Filed: 11/07/24 01:34>
MDM/Problems Addressed
Differential Diagnosis Includes:
see MDM
MDM/Problems Addressed:
Note:
CHIEF COMPLAINT(S)
Chest discomfort, bruise on foot.
HISTORY OF PRESENT ILLNESS
pt is a 84 y/o F with h/o dementia, syncope, hypothryoid, asthma, giant cell arteritis, WARD
here from [place] for ams
apparently at 6 pm pt had her eyes closed and was unresponsive to stimuli lasting several minutes; vitals remained stable
pt returned to baseline
she was just hospitalized for sme type of event10/30-11/01
thought to be possibly due to myxedema but no other signs; still traeted with IV levothryoxine but ultimately thought to have had episode of confusion/lethargy in setting jona jeff dUTI
seen by neuro
no tele events
d/c to her NH on 11/01
had same type of event today
here pt tells me she is at [facility] nd she is here for testing but she cannot offer any other history and has some dementia but otherwise no focal deficits and no alteration in mental status
REVIEW OF SYSTEMS
- Chest: Mild discomfort reported as �not really,� suggesting mild symptoms.
- Musculoskeletal: Bruising noted on foot; mild pain associated with bruise.
PHYSICAL EXAM
GENERAL: Alert , in no apparent distress, awake and alert
HEAD: NCAT
EYE: pupils equal and reactive, no nystagmus, no photophobia
NECK: Supple,full rom, nontender
ENT: o/p clr, mmm.
CARDIAC: Regular rate and rhythm . no edema
LUNGS: Clear breath sounds bilaterally, no acute respiratory distress, no wheezes/rales/rhonchi
ABDOMEN: Soft, without focal tenderness, no r/g, no cvat
NEUROLOGICAL: Alert and orientedx 2, cn intact, no facial asymmetry, 5/5 strength in UE/LE sensation intact
SKIN: Warm and dry, skin intact. bruise to L foot and ankle nontneder
MUSCULOSKELETAL: No edema, well perfused.
L foot bruise
full ROM
PSYCH: dementia; waxing and waning
PLAN
- The patient is scheduled for blood work to further investigate her current health concerns.
DIFFERENTIAL DIAGNOSIS
The differential diagnosis includes, in no particular order and is not limited to:
1. Muscle strain
2. Bruise from unknown trauma
3. Contusion
4. Mild sprain
5. Anxiety-related chest discomfort
6. Cardiac ischemia (less likely given mild symptoms)
7. Neuropathy
8. Rib fracture (if trauma occurred)
9. Costochondritis
10. Peripheral vascular disease (contributing to bruising)
CARE-UPDATE
11/07/24 - 01:12
pt was evaluated for ams today
she had similar event and admission a few days ago
w/u concluded that she has hypothyroidism but not likely myxedema and was treated for UTI but thoguht to have confusion due to dementia
she has had no events here
waxign and waning dementia but awake and responsive
w/u shows prolonged QTC but has had similar in the past
2 neg trop
ct head neg
cxr indep reviewed, clear
wbc normla
similar LFT transaminitis to previous
tsh high but free t4 impmroving
d/w ed attending who saw pt as well
did not feel another admission for similar event was indicated without new findings or persistent ams
<Katty Díaz PA-C - Last Filed: 11/07/24 01:34>
*Pulse Oximetry
SaO2: 95
Nasal Cannula flow liters per minute: 4
Patient hypoxic: no (99 on 4L baseline)
*Critical Care Note
Total Time (30-74mins, 75-104mins- exclusive of procedures): Not Applicable
ED Attending Note
<Katty Díaz PA-C - Last Filed: 11/07/24 01:34>
-
Portions of this chart may have been created with voice recognition software.� Occasional wrong word or��sound alike� substitutions may have occurred due to the inherent limitations of voice recognition software.
<Jarad Elizabeth MD - Last Filed: 11/06/24 23:02>
ED Attending Note
Patient seen and examined by attending physician: Yes
ED Attending Note:
I have seen and evaluated the patient with a [id number] encounter. I have spoken to the advance practicer provider and involved in the medical history, the physical exam, medical decision making.
Evaluation and management service: agree unless noted differently below.
Results interpretation: agree unless noted differently below.
Focused HPI: 84-year-old female with a past medical history of dementia, hyperlipidemia, hypothyroidism who presents from [facility] after an episode of confusion/lethargy. It sounds like patient was at her baseline and then found
very lethargic/difficult to arouse at around 6 PM. This lasted for about 5 minutes and then resolved with stimuli. Here in the emergency room the patient is able to tell me her name and can states she is at [place]. She appears to be at her
baseline mental status. She says that she feels generally well and offers no acute complaints. Chart review shows that she was just admitted after a similar episode of confusion and was seen by neurology; she was found to have hypothyroidism and
was treated with Synthroid in consultation with endocrine.
Physical exam: Patient is laying in bed, nontoxic-appearing. She is oriented x 2. Vital signs are normal. She has no signs of trauma to the head or to the rest of her body. No appreciable cardiac murmurs. Lungs sound clear. Neuro grossly
intact.
Medical Decision Makin-year-old female presents after an episode of lethargy/confusion where she was difficult to arouse for few minutes. Episode seems to have passed. Had a similar episode for which she was admitted and extensively worked up
recently. Vitals and exam are as above. Labs were sent off including a CBC and a CMP which showed no clinically significant abnormalities. Her TSH and T4 are still abnormal after just recent adjustments to Synthroid. Certainly she does not
appear to be in myxedema coma/hypothyroid crisis. EKG shows sinus rhythm. Can check CT head in an abundance of caution. Overall suspect likely an episode of hypoactive delirium in the setting of dementia. Will continue to monitor but if she
remains at baseline with stable vitals I do not think there would be much benefit from repeat hospital admission at this point.
Discharge Plan
Departure
Patient Disposition: Prison/SNF
Date of Disposition: 11/07/24
Time of Disposition: 01:14
Patient with high blood pressure during this ER visit?: No
Condition: Fair
Covid-19: Not Applicable
Discharge Problem:
hypoactive delirium, Dementia
Instructions: Altered Mental Status (DC)
Prescriptions:
No Action
magnesium hydroxide [Milk of Magnesia] 400 mg/5 mL Suspension
30 ml PO [id number] PRN (Reason: if no by 3rd day)
bisacodyl 10 mg Suppository
10 mg MI [id number] PRN (Reason: if no bm aftr mom)
Actemra 162 mg/0.9 mL Syringe
162 mg SC TH
divalproex [Depakote Sprinkles] 125 mg Capsule, Delayed Rel Sprinkle
125 mg PO BID
gabapentin 100 mg Capsule
200 mg PO BID Qty: 0 0RF
calcium carbonate-vitamin D3 [Calcium 600 + D(3)] 600 mg-10 mcg (400 unit) Tablet
1 tab PO DAILY
baclofen 5 mg Tablet
5 mg PO BID
acetaminophen [Tylenol] 325 mg tablet
650 mg PO Q6HPRN PRN (Reason: mild pain/temp>100.4)
amlodipine [Norvasc] 5 mg Tablet
5 mg PO DAILY
pantoprazole [Protonix] 20 mg Tablet,Delayed Release (Dr/Ec)
20 mg PO DAILY
mirtazapine 30 mg Tablet
30 mg PO HS
bismuth subsalicylate [Pepto-Bismol] 262 mg/15 mL Suspension
524 mg PO Q3HPRN PRN (Reason: stoamch issuses)
albuterol sulfate 90 mcg/actuation Hfa Aerosol Inhaler
2 puff INHALATION R Q6HPRN PRN (Reason: sob)
cholecalciferol (vitamin D3) [Vitamin D3] 25 mcg (1,000 unit) Tablet
25 mcg PO DAILY
Biotene Moisturizing Mouth [place],Non-Aerosol
2 spray MUCOUS MEMBRANE TIDPRN PRN (Reason: dry mouth)
Preparation H (Filippo Hernández) 20 % Pads, Medicated
1 pad topical TID
polyethylene glycol 3350 [HealthyLax] 17 gram powder in packet
17 g PO DAILY
lidocaine 4 % Cream
1 applic TOPICAL QIDPRN PRN (Reason: lower back)
sennosides [senna] 8.6 mg tablet
8.6 mg PO DAILY 60 Days Qty: 60 0RF
levothyroxine 25 mcg Tablet
75 mcg PO DAILY @ 0600 60 Days Qty: 60 0RF
levothyroxine [Levoxyl] 75 mcg tablet
75 mcg PO DAILY 30 Days Qty: 30 0RF
doxycycline monohydrate 100 mg capsule
100 mg PO BID 1 Days Qty: 2 0RF
Referrals:
Kobe Shelton DO [Family Provider, Family Practice]
Activity Restrictions/Additional Instructions:
Hiwot was again reevaluated for having a change in mental status, she had no events here. Her CAT scan of her brain did not show any significant new findings, showed that she is still hypothyroid and needs to take her medications however it is
not any worse and her free T4 is improving. She is on the appropriate antibiotic for her urine infection and that does not need to be changed. 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
We are unsure what is causing these episodes but it could be hypoactive delirium in the setting of dementia. Have her seen by psychiatry or neurology as an outpatient. Return for any concerns
Interventions
Interventions:
*Risk Screen - Suicide Last Done: 11/06/24 19:36
*General Assessment Last Done: 11/06/24 19:36
*Neglect/Abuse Screening Last Done: 11/06/24 19:36
*ED- Fall Risk Assessment Last Done: 11/06/24 19:36
*ED COVID-19 Vaccine History Last Done: 11/06/24 19:36
*ED Influenza Vaccine History Last Done: 11/06/24 19:36
ED- Cardiac Assessment Last Done: 11/06/24 20:21
ED- Neurological Assessment Last Done: 11/06/24 20:21
ED-Psychological Assessment Last Done: 11/06/24 20:21
ED- Pulmonary Assessment Last Done: 11/06/24 20:19
Discharge Date and Time
Print Language: TUNISIAN
[2024-11-06 22:00] VITALS: BP 142/72
[2024-11-06 23:00] VITALS: BP 135/70
[2024-11-06 23:47] VITALS: BP 128/73
[2024-11-07] VITALS: BP 134/74
[2024-11-07 01:00] VITALS: BP 149/66
[2024-11-07 01:45] LABS: Troponin I 0.019 ng/ml
[2024-11-07 02:00] VITALS: BP 118/70
[2024-11-07 03:00] VITALS: BP 123/71
[2024-11-07 05:00] VITALS: BP 129/74
== END 2024-11-07 05:50 ==
LOC: EMR 19:21
PROVIDERS: Physician Assistant; EMERGENCY PHYSICIAN Emergency Medicine; FAMILY PHYSICIAN Student in an Organized Health Care Education/Training Program
DX: F03.90 Unspecified dementia, unspecified severity, without behavioral disturbance, psychotic disturbance, mood disturbance, and anxiety (principal); F05 Delirium due to known physiological condition; E78.00 Pure hypercholesterolemia, unspecified; E03.9 Hypothyroidism, unspecified; M31.6 Other giant cell arteritis; J45.909 Unspecified asthma, uncomplicated; K75.81 Nonalcoholic steatohepatitis (NASH); M06.9 Rheumatoid arthritis, unspecified; M10.9 Gout, unspecified; M81.0 Age-related osteoporosis without current pathological fracture; F32.9 Major depressive disorder, single episode, unspecified; H54.61 Unqualified visual loss, right eye, normal vision left eye; Z87.891 Personal history of nicotine dependence
CPT/HCPCS: 99284; 70450; 71046; 80053; 84439; 84443; 84484; 85025; 93005

== ENCOUNTER → 2024-11-17 14:40 | Outpatient (REF) | payer MEDICARE, OTHER, SELFPAY ==
[2024-11-17 20:15] LABS: Urine Character Clear (Clear)
[2024-11-17 20:37] LABS: Urine Red Blood Cell 0-2 /HPF (0-2); Urine Squamous Cell >30 /LPF (Few); Urine Urothelial Cell >30 /LPF (FEW)
== END ==
LOC: OLABN 14:40
PROVIDERS: ATTENDING PHYSICIAN Student in an Organized Health Care Education/Training Program
DX: R35.89 Other polyuria (principal)
CPT/HCPCS: 81003; 81015; 87077; 87086; 87186

== ENCOUNTER → 2024-11-19 13:53 | Outpatient (REF) | payer MEDICARE, OTHER, SELFPAY ==
[2024-11-19 14:06] LABS: Hematocrit 32.7 % (37.0-47.0); Hemoglobin 10.9 g/dL (12.0-16.0); Mean Corp Hgb Conc. 33.3 g/dL (33.0-37.0); Mean Corpuscular Volume 96.7 fL (81.0-99.0); Nucleated Red Blood Cells % 0 %; Platelet Count 194 10^3/uL (130-400); Red Cell Dist. Width 14.1 % (11.5-14.5)
[2024-11-19 15:49] LABS: ALT (SGPT) 71 U/L (0-35); AST (SGOT) 56 U/L (14-36); Albumin 4.4 g/dl (3.5-5.0); Alkaline Phosphatase 72 U/L (38-126); Blood Urea Nitrogen 22 mg/dl (7-17); Calcium 9.2 mg/dl (8.4-10.2); Carbon Dioxide 32 mmol/L (22-30); Chloride 104 mmol/L (98-107); Glucose 89 mg/dl (70-99); Magnesium 2.5 mg/dl (1.6-2.3); Potassium 4.8 mmol/L (3.5-5.1); Sodium 141 mmol/L (135-145); Total Protein 6.7 g/dl (6.3-8.2); eGFR > 60.00
== END ==
LOC: OLABN 13:53
PROVIDERS: ATTENDING PHYSICIAN Student in an Organized Health Care Education/Training Program
DX: F06.4 Anxiety disorder due to known physiological condition (principal); F03.A18 Unspecified dementia, mild, with other behavioral disturbance
CPT/HCPCS: 36415; 80053; 83735; 85025

== ENCOUNTER → 2024-11-21 10:04 | Outpatient (REF) | payer MEDICARE, OTHER, SELFPAY ==
[2024-11-21 13:35] LABS: ALT (SGPT) 45 U/L (0-35); AST (SGOT) 35 U/L (14-36); Albumin 4.2 g/dl (3.5-5.0); Alkaline Phosphatase 63 U/L (38-126); Blood Urea Nitrogen 16 mg/dl (7-17); Calcium 8.6 mg/dl (8.4-10.2); Carbon Dioxide 30 mmol/L (22-30); Chloride 103 mmol/L (98-107); Glucose 83 mg/dl (70-99); Magnesium 2.1 mg/dl (1.6-2.3); Potassium 4.4 mmol/L (3.5-5.1); Sodium 140 mmol/L (135-145); Total Protein 6.4 g/dl (6.3-8.2); eGFR > 60.00
== END ==
LOC: OLABN 10:04
PROVIDERS: ATTENDING PHYSICIAN Student in an Organized Health Care Education/Training Program
DX: F06.4 Anxiety disorder due to known physiological condition (principal)
CPT/HCPCS: 36415; 80053; 83735

== ENCOUNTER → 2024-12-12 08:00 | Outpatient (REF) | payer MEDICARE, OTHER, SELFPAY ==
[2024-12-12 10:43] LABS: TSH 18.70 uIU/ml (0.47-4.68)
== END ==
LOC: OLABN 08:00
PROVIDERS: ATTENDING PHYSICIAN Student in an Organized Health Care Education/Training Program
DX: E03.9 Hypothyroidism, unspecified (principal)
CPT/HCPCS: 36415; 84436; 84439; 84443

== ENCOUNTER → 2024-12-29 10:38 | Outpatient (REF) | payer MEDICARE, OTHER, SELFPAY ==
[2024-12-29 12:05] LABS: TSH 1.92 uIU/ml (0.47-4.68)
== END ==
LOC: OLABN 10:38
PROVIDERS: ATTENDING PHYSICIAN Student in an Organized Health Care Education/Training Program
DX: E03.9 Hypothyroidism, unspecified (principal)
CPT/HCPCS: 36415; 84443

== ENCOUNTER → 2025-01-13 10:20 | Outpatient (REF) | payer MEDICARE, OTHER, SELFPAY ==
[2025-01-13 16:47] LABS: TSH 1.20 uIU/ml (0.47-4.68)
== END ==
LOC: OLABN 10:20
PROVIDERS: ATTENDING PHYSICIAN Student in an Organized Health Care Education/Training Program
DX: E03.9 Hypothyroidism, unspecified (principal)
CPT/HCPCS: 36415; 84439; 84443